=== PATIENT | female | born 1945 | race Caucasian/White ===

== ENCOUNTER 2024-02-02 11:50 | Inpatient (IN) | payer OTHER, MEDICAID ==
[~2024-02-02] VITALS: Ht 154.9 cm; Wt 78.0 kg
[2024-02-02] MEDS: SODIUM CHLORIDE 0.9% 1,000 ML IV ONE ×4 (12:05→16:46)
--- NOTE | 2024-02-02 12:07 | ED.PDOC ---
History of Present Illness HPI Comments 78 y.o female on ASA, presents to the ED via EMS for an evaluation of flu like symptoms. EMS reports patient had a syncopal episode yesterday, per patient's daughter on scene, she heard a loud noise in bathroom and found her on the floor unconscious. Patient is unable to recall syncopal episode, she states going to the restroom yesterday and became dizzy suddenly. Patient is a poor historian. EMS notes that for the past couple of days, patient c/o of nausea, vomiting, diarrhea. On scene, patient had a blood pressure of 62/35, was given 500mL bolus. Upon ED arrival, pressure is still reading low at 63/39. Patient complains of a generalized headache and left arm pain s/p fall. No chest pain, SOB, fever, or chills reported. Later we learned from the family at bedside that the patient has been having diarrhea and nausea and weakness for the last three days. She has been acting very anxious in the last two days. Patient was sitting on the toilet when she passed out. Patient denies allergies Vital Signs BP: 79/40 HR: 107 Temp: 98.9F SPO2: 94 L RR: 19 Past medical history: On ASA, thyroid disease, hyperlipidemia, DM, arthritis Past surgical history: Denies HPI: Poor Historian. Past Medcial History: Past Surgical History: REVIEW OF SYSTEMS: CONSTITUTIONAL: Denies acute: fever, diaphoresis, chills, HEAD: Denies acute: photophobia Eyes: Denies acute: Double vision, vision loss, eye pain, eye discharge. EARS: Denies acute: tinnitus, hearing loss, ear discharge, ear pain, THROAT: Denies acute: sore throat, swelling, difficulty swallowing , pain with swallowing, change in voice. NECK: Denies acute: neck swelling, stiff neck. HEART: Denies acute : chest pain, palpitations, LUNGS: Denies acute: SOB, wheezing, cough, hemoptysis ABDOMEN: Denies acute: abdominal pain, diarrhea, melena , hematemesis, hematochezia SKIN: Denies acute: rash, redness, lesions, itchiness. EXTREMITIES: Denies acute: calf pain, numbness, tingling, weakness, denies pain in extremity. Denies acute: Low back pain. Neuro: Denies acute: focal neurological deficit, motor or sensory focal neurological deficit, tremors, seizure like activity, confusion, dizziness, change in mental status, loss of bowel or bladder function, cauda equina like symptoms. : Denies acute: dysuria, hematuria, flank pain, increase in urinary frequency. PSYCH: Denies acute: hallucination, suicidal ideation, homicidal ideation. FEMALE: Denies acute: abnormal vaginal bleeding, foul odor, unusual discharge. PHYSICAL EXAM: General: no acute distress, awake and alert. Head: normocephalic, atraumatic. Neck: supple, trachea is midline, no swelling. Throat: Normal phonation. Eyes:, no erythema, no purulent discharge, no proptosis, no icterus. Heart: regular rate, regular rhythm, no significant murmur appreciated. Lungs: no apparent respiratory distress, Able to speak in full sentences. No wheezing, no rhonchi, no crackles. No stridors Clear to auscultation bilaterally. Abdomen: non tender to palpation, non distended, soft, no guarding, no rebound, + bowel sounds. Neuro: Awake, Alert, oriented to name, self, situation, follows commands GCS=15. Speech is normal. Skin: no petechia, no purpura, no cyanosis, non-pale, not jaundice. Lower extremities: --no - Pitting edema no deformity, no focal swelling, no calf TTP. Makes eye contact. moves all four extremities. Face: no apparent facial droop. Stroke: finger to nose cerebellar testing is intact. No pronator drift. Symmetrical sports official muscle strength b/l PERRLA, EOM-I CN 2-12 are grossly intact, No nystagmus. No nuchal rigidity, Kernig's sign, Brudzinski's sign, no meningeal signs. Chief Complaint: Low Blood Pressure Time Seen by MD: 11:51 Reviewed Notes: Nurses Notes, Allergies Allergies: Coded Allergies: Penicillins (Verified Allergy, Unknown, 02/02/24) Information Source: Patient, Emergency Med Personnel Mode of Arrival: EMS Past Medical History PAST MEDICAL HISTORY: Arthritis, DM, High Lipids, Thyroid COMMUNICATIONS BILLING ANALYST History: No Pertinent COMMUNICATIONS BILLING ANALYST History Family History Family History: Reviewed,noncontributory to illness Social History Smoker: Non-Smoker Alcohol: Denies ETOH Use Drugs: Denies Drug Use Lives In: Home Was a procedure done? Was a procedure done?: No Differential Dx Considerations may include: Includes but not limited to thyroid disease, encephalopathy, electrolyte abnormality, sepsis, infection, intracranial pathology, drug adverse effects, arrhythmia, kidney insufficiency, ACS, CVA, malignancy, anemia X-Ray, Labs, Meds, VS Vital Signs Date Time Temp Pulse Resp B/P (MAP) Pulse Ox O2 Delivery O2 Flow Rate FiO2 02/02/24 18:59 126/63 02/02/24 18:30 99 19 104/45 (64) 92 02/02/24 17:15 99.1 98 29 95/45 (62) 96 99.1 02/02/24 17:00 100/46 02/02/24 16:05 102 27 98/40 (59) 94 02/02/24 16:00 106 02/02/24 14:15 102 18 93/54 (67) 96 02/02/24 13:54 100 24 83/44 (57) 96 02/02/24 12:50 100 20 98 Nasal Cannula* 2 28 02/02/24 12:50 97.7 100 20 85/37 (53) 98 97.7 02/02/24 12:39 101 20 75/36 (49) 92 02/02/24 12:12 100 02/02/24 12:07 98.9 107 19 79/40 (53) 94 98.9 02/02/24 11:52 98.9 103 26 62/35 (44) 94 Lab Test 02/02/24 16:20 02/02/24 16:00 02/02/24 14:06 02/02/24 13:38 Range/Units Lactic Acid Level 2.2 *H 3.4 *H 0.4-2.0 mmol/L Troponin I High Sensitivity 39 *H 43 *H </=34 ng/L Urine Color Yellow Yellow Urine Clarity Turbid H Clear Urine pH 5.5 5.0-9.0 Urine Specific [place] 1.013 1.001-1.035 Urine Protein 1+ H Negative Urine Ketones Negative Negative Urine Blood 2+ H Negative /uL Urine Nitrite Negative Negative Urine Bilirubin Negative Negative Urine Urobilinogen Normal Negative mg/dL Urine Leukocyte Esterase 1+ Negative /uL Urine RBC 2 0 - 4 /hpf Urine WBC 24 0 - 5 /hpf Urine Squamous Epithelial Cells Few <5 /hpf Urine Amorphous Crystals Few None Seen /hpf Urine Bacteria Many H None Seen /hpf Urine Glucose Normal Normal mg/dL White Blood Count 13.4 H 4.4-10.8 10^3/uL Red Blood Count 3.49 L 4.0-5.20 10^6/uL Hemoglobin 10.8 L 12.2-16.2 g/dL Hematocrit 32.6 L 36.0-46.0 % Mean Corpuscular Volume 93.6 80.0-100.0 fL Mean Corpuscular Hemoglobin 30.9 28.0-32.0 pg Mean Corpuscular Hemoglobin Concent 33.0 32.0-36.0 g/dL Red Cell Distribution Width 17.6 H 11.8-14.3 % Platelet Count 113 L 140-450 10^3/uL Mean Platelet Volume 7.5 6.9-10.8 fL Neutrophils (%) (Auto) 37.0-80.0 % Lymphocytes (%) (Auto) 10.0-50.0 % Monocytes (%) (Auto) 0.0-12.0 % Basophils (%) (Auto) 0.0-2.0 % Neutrophils # (Auto) 1.6-8.6 10 ^3/uL Lymphocytes # (Auto) 0.4-5.4 10 ^3/uL Monocytes # (Auto) 0-1.3 10 ^3/uL Differential Total Cells Counted 100.0 100 Neutrophils % (Manual) 56 37.0-80.0 Band Neutrophils % (Manual) 24 Lymphocytes % (Manual) 10 10.0-50.0 Monocytes % (Manual) 10 0-12 Eosinophils % (Manual) 0 0-7 Basophils % (Manual) 0 0.0-2.0 Metamyelocytes % (manual) 0 Myelocytes % (Manual) 0 Promyelocytes % (Manual) 0 Blast Cells % (Manual) 0 Reactive Lymphocytes 0 Platelet Estimate Decreased B-Type Natriuretic Peptide 1080.30 0-100 pg/mL Test 02/02/24 13:13 Range/Units Prothrombin Time 14.5 H 9.3-11.8 sec Prothrombin Time INR 1.40 H 0.9-1.15 Activated Partial Thromboplast Time 35.6 H 24.5-34.5 SEC Sodium Level 135 L 136-145 mmol/L Potassium Level 5.3 H 3.5-5.1 mmol/L Chloride Level 104 98-107 mmol/L Carbon Dioxide Level 21 20-31 mmol/L Anion Gap 10 5-15 Blood Urea Nitrogen 45 H 9-23 mg/dL Creatinine 3.94 H 0.550-1.02 mg/dL Glomerular Filtration Rate Calc 11 >90 mL/min BUN/Creatinine Ratio 11.4 10.0-20.0 Serum Glucose 126 H 74-106 mg/dL Calcium Level 8.4 L 8.7-10.4 mg/dL Magnesium Level 1.5 L 1.6-2.6 mg/dL Total Bilirubin 1.0 0.2-1.0 mg/dL Aspartate Amino Transferase (AST) 59 H 13-40 U/L Alanine Aminotransferase (ALT) 51 H 7-40 U/L Alkaline Phosphatase 68 46-116 U/L Troponin I High Sensitivity 49 *H </=34 ng/L Total Protein 5.6 L 5.7-8.2 g/dL Albumin 3.1 L 3.2-4.8 g/dL Current Medications Medications (Trade) Dose Ordered Sig/Ariella Route Start Time Stop Time Status Last Admin Sodium Chloride 1,000 ml @ 1,000 mls/hr Q1H ONCE IV 02/02/24 12:00 02/02/24 12:59 DC 02/02/24 12:05 Sodium Chloride 1,000 ml @ 1,000 mls/hr Q1H ONCE IV 02/02/24 13:30 02/02/24 14:29 DC 02/02/24 13:30 Sodium Chloride 1,000 ml @ 1,000 mls/hr Q1H ONCE IV 02/02/24 14:30 02/02/24 15:29 DC 02/02/24 14:30 Magnesium Sulfate/ Dextrose 100 ml @ 100 mls/hr ONCE ONCE IV 02/02/24 14:30 02/02/24 15:29 DC 02/02/24 15:09 Ceftriaxone Sodium 50 ml @ 100 mls/hr ONCE ONCE IV 02/02/24 15:45 02/02/24 16:14 DC 02/02/24 16:46 Sodium Chloride 1,000 ml @ 1,000 mls/hr Q1H ONCE IV 02/02/24 16:00 02/02/24 16:59 DC 02/02/24 16:46 Furosemide (Lasix Injection) 40 mg ONCE ONCE IV 02/02/24 17:00 02/02/24 17:01 DC 02/02/24 17:00 Fentanyl Citrate 50 mcg ONCE ONCE IV 02/02/24 19:00 02/02/24 19:01 DC 02/02/24 18:[address] [address] Ph: [phone] DIAGNOSTIC IMAGING Diagnostic Imaging Report : [id number] Signed PATIENT: CAITLYN RICHARDSON ACCT: [id number] UNIT: [id number] : 1945 LOC: ER ROOM / BED: / AGE / SEX: 78 / F ADM STATUS: REG ER SERVICE [id number] ORDERING PHYSICIAN: AUDREY MENDEZ DO PROCEDURE(s): CTCAP - CHST AB PEL WO CON-NO IV/ORAL REASON: S/P FALL N/V ORDER NUMBER(s): [id number], ACCESSION NUMBER(s): [id number] CT CHEST, ABDOMEN AND PELVIS WITHOUT CONTRAST CLINICAL HISTORY: S/P FALL N/V TECHNIQUE: Multiple contiguous axial images of the chest, abdomen and pelvis without intravenous contrast. The images were reformatted degenerate coronal and sagittal reconstructions. All CT scans at this medical facility are performed using dose modulation techniques as appropriate to a performed exam including the following:Automated exposure control was utilized; adjustment of the MA and/or KV according to patient size; and use of iterative reconstruction technique. Radiation Dose Information: CT Dose: CTDI volume is 20.31 mGy. Dose-length product is 1252.21 mGy*cm FINDINGS: Evaluation of the chest, abdomen and pelvis is limited without intravenous contrast. The lungs are clear without evidence of consolidation. There is no pleural effusion or pneumothorax. There is no suspicious appearing pulmonary nodule or mass. There is no evidence of a mediastinal mass or lymphadenopathy. There is no hilar or axillary lymphadenopathy. The heart size within normal limits. There is no pericardial effusion. There is moderate right renal hydronephrosis. There is dilatation of the proximal right ureter. The distal right ureter does not appear dilated. There is no evidence of an obstructing ureteral calculus. There is no evidence of a renal calculus. There is no left renal calculus or hydronephrosis. There is no left ureteral calculus or hydroureter. There are renal cysts, largest in the right midpole measuring 2.1 cm. The gallbladder is not adequately seen in is probably surgically absent. The liver, pancreas, adrenal glands, and spleen appear within normal limits. There is no gross evidence of abdominal lymphadenopathy. There is no free fluid or free air. The small and large bowel loops demonstrate normal caliber. There are multiple diverticula in the sigmoid colon without evidence of acute diverticulitis. The abdominal aorta and IVC appear within normal limits. The bladder appears unremarkable. Uterus appears within normal limits.. There is no evidence of a pelvic mass or lymphadenopathy. There is no free fluid collection. There is a fat containing umbilical hernia. There is no acute osseous abnormality. There are multilevel spondylotic changes in the thoracolumbar spine. IMPRESSION: 1. There is moderate right renal hydronephrosis. There is dilatation of the proximal right ureter. The distal right ureter does not appear dilated. There is no evidence of an obstructing ureteral calculus. Ureteral stricture is not excluded. Further evaluation with CT urogram is recommended. 2. Sigmoid diverticulosis. 3. There is no acute intrathoracic abnormality. HS:Y ATED BY: JOSE DE JESUS KIRBY MD DICTATED DATE/TIME: 02/02/241428 SIGNED BY: JOSE DE JESUS KIRBY MD SIGNED DATE/TIME: 02/02/241428 CC: [place] [id number] Ph: [phone] DIAGNOSTIC IMAGING Diagnostic Imaging Report : [id number] Signed PATIENT: CAITLYN RICHARDSON ACCT: [id number] UNIT: [id number] : 1945 LOC: ER ROOM / BED: / AGE / SEX: 78 / F ADM STATUS: REG ER SERVICE 1159 ORDERING PHYSICIAN: AUDREY MENDEZ DO PROCEDURE(s): HWOCT - HEAD WITHOUT CONTRAST REASON: Weakness, syncope, hypotension ORDER NUMBER(s): [id number], ACCESSION NUMBER(s): [id number] EXAM: CT HEAD WITHOUT CONTRAST INDICATION: Weakness, syncope, hypotension TECHNIQUE: CT of the head without intravenous contrast. Coronal and sagittal reformatted images are submitted. Radiation Dose : 1. Head: CT Dose: CTDI volume is 58.89 mGy. Dose-length product is 1042.67 mGy*cm The dose indicators for CT are the volume Computed Tomography (CT) Dose Index (CTDIvol) and the Dose Length Product (DLP), and are measured in units of mGy and mGy-cm, respectively. These indicators are not patient dose, but values generated from the CT scanner acquisition factors. The report includes radiation exposure data for exposures received during this examination. All CT scans at this medical facility are performed using dose modulation techniques as appropriate to a performed exam including the following: Automated exposure control was utilized; adjustment of the MA and/or KV according to patient size; and use of iterative reconstruction technique. COMPARISON: None FINDINGS: There is no evidence of acute intracranial hemorrhage, extra-axial collection, mass effect, midline shift, herniation or hydrocephalus. The ventricles, sulci and cisterns are age appropriate. The whiting-white differentiation is intact. The visualized paranasal sinuses and mastoid air cells are clear. No depressed calvarial fracture. Right parietal scalp contusion noted. IMPRESSION: 1. No evidence of acute intracranial abnormality. 2. Right parietal scalp contusion. ATED BY: DARIO CONTE MD DICTATED DATE/TIME: 02/02/241245 SIGNED BY: DARIO CONTE MD SIGNED DATE/TIME: 02/02/241245 CC: [place] [id number] Ph: [phone] DIAGNOSTIC IMAGING Diagnostic Imaging Report : [id number] Signed PATIENT: CAITLYN RICHARDSON ACCT: [id number] UNIT: [id number] : 1945 LOC: ER ROOM / BED: / AGE / SEX: 78 / F ADM STATUS: REG ER SERVICE 1159 ORDERING PHYSICIAN: AUDREY MENDEZ DO PROCEDURE(s): CXRP - CHEST PORTABLE REASON: Weakness, syncope, hypotension ORDER NUMBER(s): [id number], ACCESSION NUMBER(s): [id number] CHEST RADIOGRAPH Indication: Weakness, syncope, hypotension Technique: Single frontal view of the chest was obtained COMPARISON: None FINDINGS: Lines and Tubes: None Lungs: Clear Pleura: No effusion. No pneumothorax. Cardiomediastinal contours: Unremarkable Bones: Unremarkable IMPRESSION: No acute disease. ATED BY: SAM CHAPA MD DICTATED DATE/TIME: 02/02/24 124 SIGNED BY: SAM CHAPA MD SIGNED DATE/TIME: 02/02/241245 CC: [place] [id number] Ph: [phone] DIAGNOSTIC IMAGING Diagnostic Imaging Report : [id number] Signed PATIENT: CAITLYN RICHARDSON ACCT: [id number] UNIT: [id number] : 1945 LOC: ER ROOM / BED: / AGE / SEX: 78 / F ADM STATUS: REG ER SERVICE 1159 ORDERING PHYSICIAN: AUDREY MENDEZ DO PROCEDURE(s): CS2 - CERVICAL WITHOUT CONTRAST REASON: Weakness, syncope, hypotension ORDER NUMBER(s): [id number], ACCESSION NUMBER(s): [id number] EXAM: CT CERVICAL WITHOUT CONTRAST INDICATION: Weakness, syncope, hypotension EXAM DATE: 02/02/2024 12:20 PM COMPARISON: None TECHNIQUE: Multiple axial CT images of the cervical spine were obtained using bone algorithm. Sagittal and coronal reformatting was done. Bone and soft tissue windows were reviewed. Radiation Dose Information: CT Dose: CTDI volume is 22.8 mGy. Dose-length product is 551.44 mGy*cm FINDINGS: The cervical alignment is intact. No acute cervical spine fracture is identified. The vertebral body heights are intact. No suspicious osseous lesions are identified. Multilevel ventral osteophytes. No significant canal stenosis. The neural foramina are patent. Multilevel facet hypertrophy. There is no prevertebral soft tissue swelling. The lung apices are clear. IMPRESSION: 1. No evidence of acute cervical spine fracture or traumatic malalignment. All CT scans at this medical facility are performed using dose modulation techniques as appropriate to a performed exam including the following: Automated exposure control was utilized; adjustment of the MA and/or KV according to patient size; and use of iterative reconstruction technique. ATED BY: DARIO CONTE MD DICTATED DATE/TIME: 02/02/24 1250 SIGNED BY: DARIO CONTE MD SIGNED DATE/TIME: 02/02/24 1250 CC: Time of 1ST Reevaluation: 12:00 Reevaluation 1ST: Unchanged Time of 2ND Reevaluation: 19:21 (Talked to daughter Shakira over the phone. Per daughter, pt has an advance directive, that is submitted with her doctor, but daughter could not find it at home. As per daughter, pt did not want to be resuscitated. Daughter said she will be coming at bedside. As per talk with the daughter over the phone , she recently stopped taking eliquis as advised by her doctor, which she was taking for the blood clot in the legs. Other meds : Lipitor, vitamin B3, vitamin B12, lisinopril, Synthroid, nitroglycerin, Ozempic) Reevaluation 2ND: Unchanged Time of 3RD Reevaluation: 19:58 (Family at bedside. Discussed with patient, family and RN plan of care. Patient reports she does not want to be intubated and no resuscitation. Family understands and will follow patient's wishes. RN at bedside noted ) Reevaluation 3RD: Unchanged Patient Education/Counseling: Diagnosis, Treatment Family Education/Counseling: Diagnosis, Treatment Comments Patient presented with the above HPI.---syncope---workup was initiated. patient was found with the above mentioned diagnosis. Patient was given: [place] CT scans were obtained since the patient was very poor historian. Patient was placed in a C-collar immediately. Later after imaging studies patient was re-evaluated. Patient has history of chronic neck pain. Cervical spine: Palpation of the posterior midline of the cervical spine reveals no focal swelling, erythema, focal tenderness to palpation. Patient has normal range of motion. C-spine was cleared in C-collar was removed. Patient ED course and VS have been stabilized. Patient has been reassessed in the ED and remained in a stable condition. Pertinent incidental findings were discussed with the patient and/or family. Patient/family voices understanding and is agreeable with plan. Patient has been observed in the ED adequate length of time to insure improvement/stability. patient was admitted to the medicine team for further evaluation and treatment of their presentation. All the reports of any imaging studies that were ordered by myself were reviewed by myself. Pain she started becoming anxious and started complaining of right low back pain from the fall. Patient was given pain medications and placed on a BiPAP because she was tachypneic. Patient was slightly tachycardic. Accu-Cheks were stable. Given her tachycardia, Repeat magnesium rider was given. Later in the course at museum archivist patient developed a fever of 101 point seven. Tylenol was given. Patient received 4 L of normal saline bolus earlier. P atient's BNP was greater than 1000. No documented history of CHF per patient and family. Patient is no longer on Eliquis. Patient meets sepsis criteria. Rocephin has already been started earlier. Flagyl was added given the recent history of diarrhea. Sepsis protocol was initiated. Later patient was weaned off of the BiPAP and remains in stable condition. Patient was slightly hypotensive. The medicine team was notified. Please see their interventions or medications ordered. Patient and family stated that they are wishes is DNR DNI Departure 1 Departure Time of Disposition: 12:39 Impression: Primary Impression: Syncope and collapse Additional Impressions: Closed head injury Hypotension Elevated troponin Hypomagnesemia Acute renal failure Sepsis Fever Disposition: ADMITTED INPATIENT Admit to: ICU Condition: Critical Discharged With: Self Critical Care Note Critical Care Time?: Yes (1 hr-critical care time only) I personally scribed for AUDREY MENDEZ DO ([email or web address]) on 02/02/24 at 12:07. Electronically submitted by Dania Rosario ([facility]). I personally scribed for AUDREY MENDEZ DO ([email or web address]) on 02/02/24 at 16:16. Electronically submitted by Dania Rosario ([facility]). I personally scribed for AUDREY MENDEZ DO ([email or web address]) on 02/02/24 at 20:01. Electronically submitted by Dania Rosario ([facility]). AUDREY MENDEZ DO Feb 02, 2024 12:07 DAVIAN MELENDEZ RESIDENT Feb 02, 2024 19:26
--- NOTE | 2024-02-02 12:48 | DVH ---
CHEST RADIOGRAPH Indication: Weakness, syncope, hypotension Technique: Single frontal view of the chest was obtained COMPARISON: None FINDINGS: Lines and Tubes: None Lungs: Clear Pleura: No effusion. No pneumothorax. Cardiomediastinal contours: Unremarkable Bones: Unremarkable IMPRESSION: No acute disease.
--- NOTE | 2024-02-02 12:49 | DVH ---
EXAM: CT HEAD WITHOUT CONTRAST INDICATION: Weakness, syncope, hypotension TECHNIQUE: CT of the head without intravenous contrast. Coronal and sagittal reformatted images are submitted. Radiation Dose : 1. Head: CT Dose: CTDI volume is 58.89 mGy. Dose-length product is 1042.67 mGy*cm The dose indicators for CT are the volume Computed Tomography (CT) Dose Index (CTDIvol) and the Dose Length Product (DLP), and are measured in units of mGy and mGy-cm, respectively. These indicators are not patient dose, but values generated from the CT scanner acquisition factors. The report includes radiation exposure data for exposures received during this examination. All CT scans at this medical facility are performed using dose modulation techniques as appropriate to a performed exam including the following: Automated exposure control was utilized; adjustment of the MA and/or KV according to patient size; and use of iterative reconstruction technique. COMPARISON: None FINDINGS: There is no evidence of acute intracranial hemorrhage, extra-axial collection, mass effect, midline s hift, herniation or hydrocephalus. The ventricles, sulci and cisterns are age appropriate. The whiting-white differentiation is intact. The visualized paranasal sinuses and mastoid air cells are clear. No depressed calvarial fracture. Right parietal scalp contusion noted. IMPRESSION: 1. No evidence of acute intracranial abnormality. 2. Right parietal scalp contusion.
[2024-02-02 12:50] VITALS: PULSE 100; RESP 20; O2SAT 98
--- NOTE | 2024-02-02 12:53 | DVH ---
EXAM: CT CERVICAL WITHOUT CONTRAST INDICATION: Weakness, syncope, hypotension EXAM DATE: 02/02/2024 12:20 PM COMPARISON: None TECHNIQUE: Multiple axial CT images of the cervical spine were obtained using bone algorithm. Sagitta l and coronal reformatting was done. Bone and soft tissue windows were reviewed. Radiation Dose Information: CT Dose: CTDI volume is 22.8 mGy. Dose-length product is 551.44 mGy*cm FINDINGS: The cervical alignment is intact. No acute cervical spine fracture is identified. The vertebral body heights are intact. No suspicious osseous lesions are identified. Multilevel ventral osteophytes. No significant canal stenosis. The neural foramina are patent. Multi level facet hypertrophy. There is no prevertebral soft tissue swelling. The lung apices are clear. IMPRESSION: 1. No evidence of acute cervical spine fracture or traumatic malalignment. All CT scans at this medical facility are performed using dose modulation techniques as appropriate t o a performed exam including the following: Automated exposure control was utilized; adjustment of th e MA and/or KV according to patient size; and use of iterative reconstruction technique.
[2024-02-02 13:52] LABS: INR 1.4 (0.9-1.15); Partial Thromboplastin Time 35.6 SEC (24.5-34.5); Prothrombin Time 14.5 sec (9.3-11.8)
[2024-02-02 14:06] LABS: Alanine Aminotransferase 51 U/L (7-40); Albumin 3.1 g/dL (3.2-4.8); Alkaline Phosphatase 68 U/L (46-116); Anion Gap 10 (5-15); Aspartate Aminotransferase 59 U/L (13-40); BUN/Creatinine Ratio 11.4 (10.0-20.0); Blood Urea Nitrogen 45 mg/dL (9-23); Calcium 8.4 mg/dL (8.7-10.4); Carbon Dioxide 21 mmol/L (20-31); Chloride 104 mmol/L (98-107); Glucose 126 mg/dL (74-106); Magnesium 1.5 mg/dL (1.6-2.6); Potassium 5.3 mmol/L (3.5-5.1); Sodium 135 mmol/L (136-145)
[2024-02-02 14:07] LABS: Total Protein 5.6 g/dL (5.7-8.2)
[2024-02-02 14:25] LABS: Lactic Acid w/Reflex 3.4 mmol/L (0.4-2.0)
[2024-02-02 14:26] LABS: Hematocrit 32.6 % (36.0-46.0); Hemoglobin 10.8 g/dL (12.2-16.2); Mean Corpuscular Hemoglobin 30.9 pg (28.0-32.0); Mean Corpuscular Volume 93.6 fL (80.0-100.0); Platelet Count (auto) 113 10^3/uL (140-450); Red Blood Cells 3.49 10^6/uL (4.0-5.20); Red Cell Distribution Width 17.6 % (11.8-14.3); White Blood Cell 13.4 10^3/uL (4.4-10.8)
--- NOTE | 2024-02-02 14:30 | DVH ---
CT CHEST, ABDOMEN AND PELVIS WITHOUT CONTRAST CLINICAL HISTORY: S/P FALL N/V TECHNIQUE: Multiple contiguous axial images of the chest, abdomen and pelvis without intravenous cont rast. The images were reformatted degenerate coronal and sagittal reconstructions. All CT scans at this medical facility are performed using dose modulation techniques as appropriate t o a performed exam including the following:Automated exposure control was utilized; adjustment of the MA and/or KV according to patient size; and use of iterative reconstruction technique. Radiation Dose Information: CT Dose: CTDI volume is 20.31 mGy. Dose-length product is 1252.21 mGy*cm FINDINGS: Evaluation of the chest, abdomen and pelvis is limited without intravenous contrast. The lungs are clear without evidence of consolidation. There is no pleural effusion or pneumothorax. There is no suspicious appearing pulmonary nodule or mass. There is no evidence of a mediastinal mass or lymphadenopathy. There is no hilar or axillary lymphad enopathy. The heart size within normal limits. There is no pericardial effusion. There is moderate right renal hydronephrosis. There is dilatation of the proximal right ureter. The d istal right ureter does not appear dilated. There is no evidence of an obstructing ureteral calculus. There is no evidence of a renal calculus. There is no left renal calculus or hydronephrosis. There is no left ureteral calculus or hydroureter. There are renal cysts, largest in the right midpole tammy uring 2.1 cm. The gallbladder is not adequately seen in is probably surgically absent. The liver, pancreas, adr enal glands, and spleen appear within normal limits. There is no gross evidence of abdominal lymphadenopathy. There is no free fluid or free air. The small and large bowel loops demonstrate normal caliber. There are multiple diverticula in the si gmoid colon without evidence of acute diverticulitis. The abdominal aorta and IVC appear within normal limits. The bladder appears unremarkable. Uterus appears within normal limits.. There is no evidence of a p elvic mass or lymphadenopathy. There is no free fluid collection. There is a fat containing umbilical hernia. There is no acute osseous abnormality. There are multilevel spondylotic changes in the thoracolumbar spine. IMPRESSION: 1. There is moderate right renal hydronephrosis. There is dilatation of the proximal right ureter. T he distal right ureter does not appear dilated. There is no evidence of an obstructing ureteral calcu khloe. Ureteral stricture is not excluded. Further evaluation with CT urogram is recommended. 2. Sigmoid diverticulosis. 3. There is no acute intrathoracic abnormality. HS:Y
[2024-02-02 14:43] LABS: Basophils % (manual) 0 (0.0-2.0); Blast Cells 0; Eosinophils % (manual) 0 (0-7); Metamyelocytes % 0; Myelocytes % 0; Promyelocytes % 0; Reactive Lymphocytes 0
[2024-02-02] MEDS: MAGNESIUM SULFATE 1GM/100ML 100 ML IV ONE ×2 (15:09→22:25)
[2024-02-02] MEDS ORDERED: FUROSEMIDE 100 MG/10ML VIAL IV ONE (15:45)
[2024-02-02] MEDS: cefTRIAXone 1GM/50ML D5W 50 ML IV ONE (16:46)
[2024-02-02] MEDS: FUROSEMIDE 40 MG/4 ML VIAL IV ONE (17:00)
[2024-02-02 17:29] LABS: Band Neutrophils % (manual) 24; Lymphocytes % (manual) 10 (10.0-50.0); Monocytes % (manual) 10 (0-12); Platelet Estimate Decreased
[2024-02-02 17:31] LABS: Urine Amorphous Crystal FEW /hpf (None Seen); Urine Bacteria MANY /hpf (None Seen); Urine Blood 2+ /uL (Negative); Urine Clarity Turbid (Clear); Urine Color Yellow (Yellow); Urine Protein, UAD 1+ (Negative); Urine Specific Gravity 1.013 (1.001-1.035); Urine Urobilinogen Normal (Negative); Urine WBC 24 /hpf (0 - 5); Urine pH 5.5 (5.0-9.0)
[2024-02-02] MEDS: ACETAMINOPHEN 325 MG TAB PO ONE (18:56)
[2024-02-02] MEDS: fentaNYL CITRATE 100 MCG/2 ML VL IV ONE (18:59)
--- NOTE | 2024-02-02 19:08 | DVH ---
EXAM: XY CHEST XRAY 1 VIEW CLINICAL HISTORY: SHORT OF BREATH TECHNIQUE: Single AP view of the chest WID: COMPARISON: XY CHEST PORTABLE on DOS: 02/02/24 FINDINGS: Lines and tubes: None Chest: The heart size and pulmonary vasculature is within normal limits. No pleural effusion, pneumothorax, or consolidation. The osseous structures are grossly intact. Multilevel thoracic spondylosis. Degenerative changes of t he bilateral acromioclavicular joints IMPRESSION: No acute cardiopulmonary abnormality.
[2024-02-02] MEDS ORDERED: DEXTROSE (50%) 50ML SYRG IV PRN (19:15)
[2024-02-02] MEDS ORDERED: DOCUSATE SOD 100 MG CAP PO PRN (19:15)
[2024-02-02] MEDS: SODIUM CHLORIDE 0.9% 1,000 ML IV SCH (19:15)
[2024-02-02] MEDS ORDERED: LORazepam 0.5 MG TAB PO PRN (19:15)
[2024-02-02] MEDS: InsuLIN REG 1unit/0.01ml Soln (100units/ml) SC SCH (20:00)
[2024-02-02] MEDS: ACCU-CHEK COMFORT CURVE STRIP VI SCH (20:00)
[2024-02-02] MEDS: LORazepam 2MG/ML-1ML VIAL IV ONE (20:04)
--- NOTE | 2024-02-02 20:10 | DVHHP2 ---
History of Present Illness Reason for Visit: shortness of breath History of Present Illness 78 yo obese patient with acute respiratory failure with a history of thyroid disease HLD and DM patient was evaluated for admission for the admission of shortness of breath patient was placed on bipap with the thought that this was likely secondary to fluid overload patient recommended for continued medical management Cardiovascular: CAD, CHF, syncope, hyperipidemia Endocrine: Diabetes Review of Systems Constitutional: Yes: Weakness; No: Fever, Chills, Sweats, Malaise, Other Eyes: No: Pain, Vision change, Conjunctivae inflammation, Eyelid inflammation, Other, Redness ENT: No: Ear pain, Ear discharge, Nose pain, Nose discharge, Nose congestion, Mouth pain, Mouth swelling, Throat pain, Throat swelling, Other Respiratory: Cough, Shortness of breath; No: Dry, SOB with excertion, Wheezing, Hemoptysis, Pleuritic Pain, Sputum, Wheezing, Other Cardiovascular: Chest Pain, Palpitations; No: Orthopnea, Paroxysmal Noc. Dyspnea, Edema, Lt Headedness, Other Gastrointestinal: No: Nausea, Vomiting, Abdominal Pain, Diarrhea, Constipation, Melena, Hematochezia, Other Genitourinary: No Dysuria, No Frequency, No Incontinence, No Hematuria, No Retention, No Other Musculoskeletal: No: other, neck pain, shoulder pain, arm pain, back pain, hand pain, leg pain, foot pain Skin: No: Rash, Lesions, Jaundice, Bruising, Other Neurological: No: Weakness, Numbness, Incoordination, Change in speech, Confusion, Seizures, Other Allergies: Coded Allergies: NO KNOWN ALLERGIES (Unverified , 02/02/24) Medications Current Medications Medications Dose Ordered Sig/Ariella Route Start Time Stop Time Status Last Admin Dose Admin Ceftriaxone Sodium 50 ml @ 100 mls/hr DAILY IV 02/03/24 10:00 UNV Furosemide 40 mg BID IV 02/02/24 22:00 UNV Sodium Chloride 1,000 ml @ 75 mls/hr [id number] IV 02/02/24 19:15 UNV Diagnostic Test (Pha) 1 strip IQ4HR 02/02/24 20:00 UNV Insulin Human Regular IQ4HR SC 02/02/24 20:00 UNV Dextrose 50 ml UD PRN IV 02/02/24 19:15 UNV Lorazepam 0.5 mg Q6HP PRN PO 02/02/24 19:15 UNV Al Hydrox/Mg Hydrox/Simethicone 30 ml Q6HP PRN PO 02/02/24 19:15 UNV Docusate Sodium 100 mg BIDPRN PRN PO 02/02/24 19:15 UNV Acetaminophen 650 mg Q6HP PRN PO 02/02/24 19:15 UNV Acetaminophen/ Hydrocodone Bitart 1 tab Q4HP PRN PO 02/02/24 19:15 UNV Ondansetron HCl 4 mg Q4HP PRN IV 02/02/24 19:15 UNV Morphine Sulfate 2 mg Q4HPRN PRN IV 02/02/24 19:15 UNV Albuterol 2.5 mg Q4HWA PRN NEB 02/02/24 19:30 UNV Ipratropium [place] 0.5 mg Q4HWA PRN NEB 02/02/24 19:30 UNV Exam Vital Signs Vital Signs Date Time Temp Pulse Resp B/P (MAP) Pulse Ox O2 Delivery O2 Flow Rate FiO2 02/02/24 19:15 130 126/68 Facial BiPAP Mask 50 02/02/24 18:30 19 92 02/02/24 17:15 99.1 99.1 02/02/24 12:50 2 General Appearance: Alert, Oriented X3, severe distress HEENT: Atraumatic, PERRLA Respiratory: Clear to auscultation, Normal air movement Cardiovascular: Regular rate, Normal S1, Normal S2 Abdominal: Normal bowel sounds, Soft, No tenderness Extremities: No clubbing, No cyanosis Skin: No rashes, No breakdown Neuro: Normal speech Psych/Mental Status: Mood NL Labs/Xrays Labs Test 02/02/24 19:07 02/02/24 16:20 02/02/24 16:00 02/02/24 13:38 Range/Units POC Glucose 114 H 70-106 mg/dl Lactic Acid Level 2.2 *H 0.4-2.0 mmol/L Troponin I High Sensitivity 39 *H </=34 ng/L Urine Color Yellow Yellow Urine Clarity Turbid H Clear Urine pH 5.5 5.0-9.0 Urine Specific [place] 1.013 1.001-1.035 Urine Protein 1+ H Negative Urine Ketones Negative Negative Urine Blood 2+ H Negative /uL Urine Nitrite Negative Negative Urine Bilirubin Negative Negative Urine Urobilinogen Normal Negative mg/dL Urine Leukocyte Esterase 1+ Negative /uL Urine RBC 2 0 - 4 /hpf Urine WBC 24 0 - 5 /hpf Urine Squamous Epithelial Cells Few <5 /hpf Urine Amorphous Crystals Few None Seen /hpf Urine Bacteria Many H None Seen /hpf Urine Glucose Normal Normal mg/dL White Blood Count 13.4 H 4.4-10.8 10^3/uL Red Blood Count 3.49 L 4.0-5.20 10^6/uL Hemoglobin 10.8 L 12.2-16.2 g/dL Hematocrit 32.6 L 36.0-46.0 % Mean Corpuscular Volume 93.6 80.0-100.0 fL Mean Corpuscular Hemoglobin 30.9 28.0-32.0 pg Mean Corpuscular Hemoglobin Concent 33.0 32.0-36.0 g/dL Red Cell Distribution Width 17.6 H 11.8-14.3 % Platelet Count 113 L 140-450 10^3/uL Mean Platelet Volume 7.5 6.9-10.8 fL Neutrophils (%) (Auto) 37.0-80.0 % Lymphocytes (%) (Auto) 10.0-50.0 % Monocytes (%) (Auto) 0.0-12.0 % Basophils (%) (Auto) 0.0-2.0 % Neutrophils # (Auto) 1.6-8.6 10 ^3/uL Lymphocytes # (Auto) 0.4-5.4 10 ^3/uL Monocytes # (Auto) 0-1.3 10 ^3/uL Differential Total Cells Counted 100.0 100 Neutrophils % (Manual) 56 37.0-80.0 Band Neutrophils % (Manual) 24 Lymphocytes % (Manual) 10 10.0-50.0 Monocytes % (Manual) 10 0-12 Eosinophils % (Manual) 0 0-7 Basophils % (Manual) 0 0.0-2.0 Metamyelocytes % (manual) 0 Myelocytes % (Manual) 0 Promyelocytes % (Manual) 0 Blast Cells % (Manual) 0 Reactive Lymphocytes 0 Platelet Estimate Decreased B-Type Natriuretic Peptide 1080.30 0-100 pg/mL Test 02/02/24 13:13 Range/Units Prothrombin Time 14.5 H 9.3-11.8 sec Prothrombin Time INR 1.40 H 0.9-1.15 Activated Partial Thromboplast Time 35.6 H 24.5-34.5 SEC Sodium Level 135 L 136-145 mmol/L Potassium Level 5.3 H 3.5-5.1 mmol/L Chloride Level 104 98-107 mmol/L Carbon Dioxide Level 21 20-31 mmol/L Anion Gap 10 5-15 Blood Urea Nitrogen 45 H 9-23 mg/dL Creatinine 3.94 H 0.550-1.02 mg/dL Glomerular Filtration Rate Calc 11 >90 mL/min BUN/Creatinine Ratio 11.4 10.0-20.0 Serum Glucose 126 H 74-106 mg/dL Calcium Level 8.4 L 8.7-10.4 mg/dL Magnesium Level 1.5 L 1.6-2.6 mg/dL Total Bilirubin 1.0 0.2-1.0 mg/dL Aspartate Amino Transferase (AST) 59 H 13-40 U/L Alanine Aminotransferase (ALT) 51 H 7-40 U/L Alkaline Phosphatase 68 46-116 U/L Total Protein 5.6 L 5.7-8.2 g/dL Albumin 3.1 L 3.2-4.8 g/dL Assessment/Plan Assessment/Plan Admit to [facility] Acute Respiratory Failure Due to suspected Acute on Chronic CHF BNP > 1000 Patient with Bipap IV abx PRN breathing treatments Patient family has requested DNR and patient was family requested to have patient be managed Hyperlipidemia/HTN/ DM Insluin Sliding Scale c/w home meds CCT 38 mins Plan discussed with: Patient My Orders Orders - LIANE VALENCIA MD Procedure Category Date Status Time Ceftriaxone 1gm/50ml [facility] 02/03/24 Logged D5w (Rocephin) 10:00 Furosemide Injection [facility] 02/02/24 Logged (Lasix Injection) 22:00 Insert [place]hman Catheter [facility] 02/02/24 In Process 19:05 Sodium Chloride 0.9% [facility] 02/02/24 Logged 19:15 Glucose Blood [facility] 02/02/24 Logged (Accu-Chek Comfort 20:00 Insulin R (Human) [facility] 02/02/24 Logged (Insulin R) 20:00 Dextrose 50% Syringe [facility] 02/02/24 Logged 19:15 Admit ADMIT 02/02/24 Transmitted 19:05 Code Status CODE 02/02/24 Transmitted 19:05 Vital Signs [facility] 02/02/24 In Process 19:05 Review Orders With [facility] 02/02/24 In Process Adm. 19:05 Regular Diet DIET 02/03/24 Transmitted Breakfast Lorazepam Tablet [facility] 02/02/24 Logged (Ativan Tablet) 19:15 Alum & Mag [facility] 02/02/24 Logged Hydrox-Simethicone 19:15 Docusate Sodium [facility] 02/02/24 Logged Capsule (Colace 19:15 Acetaminophen Tablet [facility] 02/02/24 Logged (Tylenol Tablet) 19:15 Notify Md Of Changes [facility] 02/02/24 In Process From Base 19:05 Advance Directive [facility] 02/02/24 In Process 19:05 Basic Metabolic Panel LAB 02/03/24 Verified 04:00 Complete Blood Count LAB 02/03/24 Verified 04:00 Patient Condition ORDERS 02/02/24 Transmitted 19:05 Allergies [facility] 02/02/24 In Process 19:05 Hydrocodone-Acet [facility] 02/02/24 Logged 5/325mg Tab ([place] 19:15 Ondansetron Hcl [facility] 02/02/24 Logged (Zofran) 19:15 Morphine Sulfate [facility] 02/02/24 Logged Injection 19:15 Notify Md Of Changes [facility] 02/02/24 In Process From Base 19:05 Oxygen By Nasal RT 02/02/24 Transmitted Cannula 19:05 Albuterol Medneb [facility] 02/02/24 Logged (Ventolin Medneb) 19:30 Ipratropium Medneb [facility] 02/02/24 Logged (Atrovent Medneb) 19:30 Med Neb Initial RT 02/02/24 Logged Treatment 19:30 Aspirin Tablet [facility] 02/03/24 Logged 10:00 Clopidogrel Bisulfate [facility] 02/02/24 Logged (Plavix) 19:45 Metoprolol Tartrate [facility] 02/02/24 Logged Tablet (Lopressor Ta 22:00 Problem List: (1) Acute renal failure (2) Hypotension (3) Syncope and collapse Date of Service: Feb 02, 2024 Billing Provider: LIANE VALENCIA MD Common Visit Codes: [id number] CARE 30-74 MIN LIANE VALENCIA MD Feb 02, 2024 20:09
[2024-02-02 20:31] LABS: Base Excess -12.4 mmol/L (-2.0-3.0)
[2024-02-02 20:45] VITALS: BP 126/68; PULSE 130; RESP 26; TEMP 99.1; O2SAT 98
[2024-02-02 21:30] VITALS: PULSE 111; RESP 25; O2SAT 98
[2024-02-02] MEDS: ACETAMINOPHEN 500 MG TAB or CAP PO ONE (21:52)
[2024-02-02] MEDS: MIDODRINE HCL 10 MG TAB PO ONE (21:52)
[2024-02-02] MEDS: METOPROLOL TARTRATE 25 MG TAB PO SCH (22:00)
[2024-02-02] MEDS: FUROSEMIDE 40 MG/4 ML VIAL IV SCH (22:00)
[2024-02-02] MEDS: CLOPIDOGREL BISULFATE 75 MG TAB PO ONE (22:24)
[2024-02-02] MEDS: metroNIDAZOLE 500MG/100ML 100 ML IV ONE (22:25)
[2024-02-02] MEDS: NOREPINEPHRINE 8 MG/250ML KIT 250 ML IV SCH (23:00)
[2024-02-03] MEDS: PHENYLEPHRINE IV 250 ML IV ONE (01:48)
[2024-02-03] MEDS: PHENYLEPHRINE IV 250 ML IV SCH (02:00)
[2024-02-03] MEDS: HYDROcodone-ACET 5/325MG TAB PO PRN (03:19)
--- NOTE | 2024-02-03 03:23 | DVH ---
Critical Finding: Examination: CXR1 Clinical Indication: CENTRAL LINEW INSERTION Comparison: None. Technique: Frontal radiograph of the chest was obtained. Findings: PICC line is noted on the right side, with its tip in the inferior vena cava, needs retraction by at least approximately 5.5 cm so that the tip lies at the cavoatrial junction. Lungs are clear and well expanded, with no pulmonary infiltrate or pleural effusion. There is no pneumothorax. No evidence of cardiomegaly. Degenerative changes in the visualized thoracic spine. No acute osseous abnormality is seen. Impression: 1. No acute cardiopulmonary disease is seen. 2. PICC line on the right side with its tip in the inferior vena cava, needs retraction by at least approximately 5.5 cm so that the tip lies at the cavoatrial junction. Electronically Signed 02/03/2024 03:14 Zoila Andrea
[2024-02-03 04:49] LABS: Hematocrit 36.8 % (36.0-46.0); Hemoglobin 11.8 g/dL (12.2-16.2); Mean Corpuscular Hemoglobin 31.1 pg (28.0-32.0); Mean Corpuscular Hgb Conc. 32.2 g/dL (32.0-36.0); Mean Corpuscular Volume 96.7 fL (80.0-100.0); Platelet Count (auto) 114 10^3/uL (140-450); Red Cell Distribution Width 17.6 % (11.8-14.3); White Blood Cell 19.1 10^3/uL (4.4-10.8)
[2024-02-03 05:01] LABS: Chloride 107 mmol/L (98-107); Potassium 3.4 mmol/L (3.5-5.1); Sodium 137 mmol/L (136-145)
[2024-02-03 05:02] LABS: Anion Gap 19 (5-15); Calcium 8.1 mg/dL (8.7-10.4); Carbon Dioxide 11 mmol/L (20-31)
[2024-02-03 05:06] LABS: Basophils % (manual) 0 (0.0-2.0); Blast Cells 0; Metamyelocytes % 0; Myelocytes % 0; Promyelocytes % 0; Reactive Lymphocytes 0
[2024-02-03 05:07] LABS: BUN/Creatinine Ratio 10.2 (10.0-20.0); Blood Urea Nitrogen 37 mg/dL (9-23); Glucose 84 mg/dL (74-106)
[2024-02-03 05:29] LABS: Band Neutrophils % (manual) 6; Eosinophils % (manual) 1 (0-7); Lymphocytes % (manual) 9 (10.0-50.0); Monocytes % (manual) 15 (0-12); Platelet Estimate Decreased
[2024-02-03] MEDS: MIDODRINE HCL 10 MG TAB PO SCH (06:29)
[2024-02-03 06:33] VITALS: O2SAT 94
[2024-02-03 07:38] VITALS: PULSE 96; RESP 22; O2SAT 95
[2024-02-03] MEDS: ASPirin 81 mg TAB PO SCH (10:00)
[2024-02-03] MEDS: cefTRIAXone 1GM/50ML D5W 50 ML IV SCH (10:07)
--- NOTE | 2024-02-03 11:56 | ECG ---
[facility] Test Date: 2024-02-02 Test Time: 19:20:01 Pat Name: CAITLYN RICHARDSON Department: ER Room: [address] [place] [address] A Gender: F [employer]ger: LEONID : [id number] Requested By: AUDREY MENDEZ Order Number: [id number] Reading MD: Edwardo Casas Measurements Intervals [place] Rate: 130 P: 75 CT: 122 QRS: 50 QRSD: 81 T: 38 QT: 337 QTc: 496 Interpretive Statements Sinus tachycardia Borderline low voltage, extremity leads Borderline prolonged QT interval Electronically Signed On 02-03-2024 17:46:31 PST by Edwardo Casas Please click the below link to view image of tracing.
--- NOTE | 2024-02-03 12:20 | DVH ---
CAROTID ARTERIAL DOPPLER CLINICAL HISTORY: syncope TECHNIQUE: Doppler study of bilateral carotid/vertebral arteries were performed. Comparison: None FINDINGS: The bilateral common carotid, external and internal carotid arteries appear patent without hemodynami emma significant stenosis. There is no significant flow limiting plaque formation identified.The sp ectral wave forms and peak systolic velocities are within normal limits. Antegrade flow is present within the vertebral arteries with appropriate velocities and waveforms. Right ICA/CCA PSV ratio = 1.2. Left ICA/CCA PSV ratio = 0.7 . IMPRESSION: 1. No hemodynamically significant stenosis within the carotid arteries. HS:Y
[2024-02-03] MEDS ORDERED: APIX2.5T PO (15:53)
[2024-02-03] MEDS ORDERED: LACT10SO3 PO (15:53)
[2024-02-03] MEDS ORDERED: NITR0.4S29 SL (15:53)
[2024-02-03] MEDS ORDERED: LEV75T PO (15:53)
[2024-02-03] MEDS ORDERED: CYAN10006 PO (15:53)
[2024-02-03] MEDS ORDERED: CHOL1TAB30 PO (15:53)
[2024-02-03] MEDS ORDERED: ATOR10TA52 PO (15:53)
[2024-02-03] MEDS ORDERED: SEMA4INJ SC (15:53)
[2024-02-03] MEDS ORDERED: LISI2.5T47 PO (15:53)
[2024-02-03] MEDS ORDERED: FAMO-12 PO (15:53)
[2024-02-03 15:58] LABS: COVID19 ANTIGEN SOFIA FIA NEGATIVE (NEGATIVE); Rapid Influenza A Negative (Negative); Rapid Influenza B Negative (Negative)
--- NOTE | 2024-02-03 16:58 | DVHPN2 ---
Subjective 78 year old female came to ER for N/V/D BP is low on vasopressors Flu like symptoms, weakness x days Cough x 2 years Changes from previous H/P or p: Changes Eyes: No Pain, No Vision change, No Conjunctivae inflammation, No Eyelid inflammation, No Other, No Redness ENT: No Ear pain, No Ear discharge, No Nose pain, No Nose discharge, No Nose congestion, No Mouth pain, No Mouth swelling, No Throat pain, No Throat swelling, No Other Cardiovascular: Chest Pain, Palpitations Respiratory: Cough, Shortness of breath Gastrointestinal: No Nausea, No Vomiting, No Abdominal Pain, No Diarrhea, No Constipation, No Melena, No Hematochezia, No Other Genitourinary: No Dysuria, No Frequency, No Incontinence, No Hematuria, No Retention, No Other Musculoskeletal: No other, No neck pain, No shoulder pain, No arm pain, No back pain, No hand pain, No leg pain, No foot pain Skin: No Rash, No Lesions, No Jaundice, No Bruising, No Other Objective Vitals Vital Signs Date Time Temp Pulse Resp B/P (MAP) Pulse Ox O2 Delivery O2 Flow Rate FiO2 02/03/24 16:01 97.7 86 18 96/45 (62) 97 97.7 02/03/24 07:38 Nasal Cannula* 5 40 Intake/Output Intake and Output 02/03/24 06:59 Intake Total 4495.00 ml Balance 4495.00 ml Intake IV Total 4495.00 ml General Appearance: Alert, Other (somenolent) Lungs: Clear to auscultation, Normal air movement Cardiovascular: Regular rate, Normal S1, Normal S2 Abdomen: Normal bowel sounds, Soft, No tenderness Extremities: No edema Medications Current Medications Medications Dose Ordered Sig/Ariella Route Start Time Stop Time Status Last Admin Dose Admin Ceftriaxone Sodium 50 ml @ 100 mls/hr DAILY IV 02/03/24 10:00 02/03/24 10:07 100 MLS/HR Furosemide 40 mg BID IV 02/02/24 22:00 02/03/24 10:18 40 MG Sodium Chloride 1,000 ml @ 75 mls/hr [id number] IV 02/02/24 19:15 Diagnostic Test (Pha) 1 strip IQ4HR 02/02/24 20:00 02/03/24 16:02 1 STRIP Insulin Human Regular IQ4HR SC 02/02/24 20:00 Dextrose 50 ml UD PRN IV 02/02/24 19:15 Lorazepam 0.5 mg Q6HP PRN PO 02/02/24 19:15 Al Hydrox/Mg Hydrox/Simethicone 30 ml Q6HP PRN PO 02/02/24 19:15 Docusate Sodium 100 mg BIDPRN PRN PO 02/02/24 19:15 Acetaminophen 650 mg Q6HP PRN PO 02/02/24 19:15 Acetaminophen/ Hydrocodone Bitart 1 tab Q4HP PRN PO 02/02/24 19:15 02/03/24 03:19 1 TAB Ondansetron HCl 4 mg Q4HP PRN IV 02/02/24 19:15 Morphine Sulfate 2 mg Q4HPRN PRN IV 02/02/24 19:15 Albuterol 2.5 mg Q4HWA PRN NEB 02/02/24 19:30 Ipratropium [place] 0.5 mg Q4HWA PRN NEB 02/02/24 19:30 Aspirin 81 mg DAILY PO 02/03/24 10:00 Metoprolol Tartrate 12.5 mg BID PO 02/02/24 22:00 Midodrine 10 mg TID@0600,1200,1800 PO 02/03/24 06:00 02/03/24 12:34 10 MG Norepinephrine Bitartrate 250 ml @ 3.75 mls/hr Q24H IV 02/02/24 23:00 02/03/24 11:36 18.75 MLS/HR Phenylephrine HCl 250 ml @ 30 mls/hr Q8H20M IV 02/03/24 01:45 02/03/24 10:12 30 MLS/HR Laboratory Results Laboratory Tests 02/03/24 04:20 Chemistry Test 02/03/24 04:20 Calcium Level 8.1 mg/dL (8.7-10.4) L Urinalysis Test 02/02/24 16:00 Urine Color Yellow (Yellow) Urine Clarity Turbid (Clear) H Urine pH 5.5 (5.0-9.0) Urine Specific [place] 1.013 (1.001-1.035) Urine Protein 1+ (Negative) H Urine Ketones Negative (Negative) Urine Blood 2+ /uL (Negative) H Urine Nitrite Negative (Negative) Urine Bilirubin Negative (Negative) Urine Urobilinogen Normal mg/dL (Negative) Urine Leukocyte Esterase 1+ /uL (Negative) Urine RBC 2 /hpf (0 - 4) Urine WBC 24 /hpf (0 - 5) Urine Squamous Epithelial Cells Few /hpf (<5) Urine Amorphous Crystals Few /hpf (None Seen) Urine Bacteria Many /hpf (None Seen) H Urine Glucose Normal mg/dL (Normal) Blood Gas Results Test 02/02/24 20:25 Arterial Blood pH 7.285 (7.350-7.450) FiO2 % 50.0 Microbiology Microbiology Date/Time Source Procedure Growth Status 02/02/24 16:00 Urine - [place] Urine Culture - Preliminary Resulted Assessment/Plan Assessment/Plan МАРИЯ Intractable N/V/D UTI h/o DVT LLE Hypothyroidism DM2 Dyslipidemia PLAN: IV fluids Vasopressors IV antibiotics: Rocephin and Flagyl Protonix Discussed with daughter over the phone DNR DC Lasix DC Metoprolol DC Midodrine Plan discussed with: Patient My Orders Orders - XAVIER AIKEN MD Procedure Category Date Status Time * Wound Consult CONS 02/03/24 Transmitted Echo 2d Mode Cardiac US 02/03/24 Logged DOP 11:37 Carotid Duplx W Color US 02/03/24 Resulted DOP 11:37 Date of Service: Feb 03, 2024 Billing Provider: XAVIER AIKEN MD Common Visit Codes: NOT BILLABLE XAVIER AIKEN MD Feb 03, 2024 16:58
[2024-02-03] MEDS: ACCU-CHEK COMFORT CURVE STRIP VI SCH (17:00)
[2024-02-03] MEDS: InsuLIN REG 1unit/0.01ml Soln (100units/ml) SC SCH (17:00)
[2024-02-03] MEDS: PANTOPRAZOLE 40 MG/10 ML VIAL INJ IV ONE (17:28)
[2024-02-03 19:30] VITALS: PULSE 55; RESP 16; O2SAT 96
[2024-02-03] MEDS: MORPHINE SULFATE INJ 2 MG/ml SYRG IV PRN (21:41)
[2024-02-03 22:38] VITALS: PULSE 90; RESP 20; O2SAT 94
[2024-02-03] MEDS: IPRATROPIUM BROM 0.5 MG/2.5ML INH SOL NEB PRN (22:38)
[2024-02-03] MEDS: ALBUTEROL SULF 2.5 MG/0.5ML(0.5%) NEB SOLN NEB PRN (22:38)
[2024-02-03 22:48] VITALS: PULSE 102; RESP 20; O2SAT 96
[2024-02-04] VITALS (17 sets, daily range): BP systolic 93–111; BP diastolic 46–53; PULSE 86–102; RESP 16–26; TEMP 98.1–98.4; O2SAT 94–99
[2024-02-04 04:54] LABS: Hemoglobin 12.3 g/dL (12.2-16.2)
[2024-02-04 04:56] LABS: Mean Corpuscular Hemoglobin 31.4 pg (28.0-32.0); Mean Corpuscular Hgb Conc. 33.2 g/dL (32.0-36.0); Mean Corpuscular Volume 94.6 fL (80.0-100.0); Platelet Count (auto) 56 10^3/uL (140-450); Red Blood Cells 3.92 10^6/uL (4.0-5.20); White Blood Cell 18.3 10^3/uL (4.4-10.8)
[2024-02-04 05:10] LABS: Basophils % (manual) 0 (0.0-2.0); Blast Cells 0; Eosinophils % (manual) 0 (0-7); INR 1.4 (0.9-1.15); Metamyelocytes % 0; Myelocytes % 0; Promyelocytes % 0; Prothrombin Time 14.5 sec (9.3-11.8); Reactive Lymphocytes 0
[2024-02-04 05:11] LABS: Alanine Aminotransferase 59 U/L (7-40); Albumin 3.5 g/dL (3.2-4.8); Alkaline Phosphatase 156 U/L (46-116); Anion Gap 17 (5-15); Aspartate Aminotransferase 51 U/L (13-40); BUN/Creatinine Ratio 15.9 (10.0-20.0); Calcium 8.2 mg/dL (8.7-10.4); Carbon Dioxide 12 mmol/L (20-31); Chloride 110 mmol/L (98-107); Glucose 95 mg/dL (74-106); Magnesium 2.2 mg/dL (1.6-2.6); Potassium 4.1 mmol/L (3.5-5.1); Sodium 139 mmol/L (136-145); Total Protein 6.3 g/dL (5.7-8.2)
[2024-02-04 05:12] LABS: Bilirubin, Total 1.2 mg/dL (0.2-1.0); Blood Urea Nitrogen 53 mg/dL (9-23)
[2024-02-04] MEDS: VASOPRESSIN 20 UNITS in SODIUM CHL 0.9% 99 ML IV SCH (05:30)
[2024-02-04 06:59] LABS: Band Neutrophils % (manual) 7; Lymphocytes % (manual) 11 (10.0-50.0); Monocytes % (manual) 9 (0-12)
[2024-02-04 07:00] LABS: Ovalocytes FEW; Platelet Estimate Decreased
[2024-02-04 07:34] LABS: Base Excess -15.8 mmol/L (-2.0-3.0)
[2024-02-04] MEDS ORDERED: SODIUM BICARB IV SCH (08:45)
[2024-02-04] MEDS ORDERED: SODIUM CHL 0.9% IV SCH (08:45)
[2024-02-04] MEDS: PANTOPRAZOLE 40 MG/10 ML VIAL INJ IV SCH (10:00)
[2024-02-04] MEDS: SODIUM BICARB 50mEq/50ml Vial 50 ML in SODIUM CHLORIDE 0.9% 1,000 ML IV SCH (10:00)
--- NOTE | 2024-02-04 12:49 | DVHINCON2 ---
Date of service: Feb 04, [address] Dey Reason for Consultation Acute kidney injury History of Present Illness Mrs. Mckinley is a 78-year-old female with known history of chronic kidney disease, lost to follow up with outpatient CKD Clinic who presented for further evaluation and management of reported vague abdominal discomfort per her self- report. She was seen in the emergency department, patient's is at bedside. She denies recent fevers, chills, vomiting. Denies gross hematuria or dysuria. Her clinical course has been notable for CT imaging of the abdomen notable for right-sided hydronephrosis without definitive finding of obstructive nephrolithiasis. Her serum creatinine has been down trending with current management in the emergency department. Past Medical History Coronary artery disease Heart failure Syncope Dyslipidemia Diabetes Allergies: Coded Allergies: Penicillins (Verified Allergy, Unknown, 02/02/24) Home Meds Reported Medications Nitroglycerin (Nitrostat) 0.4 Mg Sub, 0.4 MG SL Q5MIN PRN for FOR CHEST PAIN, INJ DISSOLVE ONE TABLET UNDER THE TONGUE EVERY 5 MINUTES NEEDED FOR CHEST PAIN. DO NOT EXCEED A TOTAL OF 3 DOSES IN 15 MINUTES. IF NO RELIEF, CALL 911 02/03/24 Famotidine (Famotidine) 20 Mg Tab, 20 MG PO BID, MG 02/03/24 Apixaban Base (ELIQUIS) 2.5 Mg Tab, 2.5 MG PO BID, TAB 02/03/24 Lactulose (Lactulose) 10 Gm/15 Ml Rebecca, 15 ML PO DAILY PRN for FOR CONSTIPATION, ML 02/03/24 Semaglutide (Ozempic) 4 Mg/3 Ml Inj, 1 MG SC QWEEKLY, INJ 02/03/24 Cyanocobalamin (Vitamin B-12 Cr) 1,000 Mcg Tab, 1000 MCG PO DAILY, TAB 02/03/24 Levothyroxine Sodium (Synthroid) 75 Mcg Tab, 75 MCG PO QAM, TAB 02/03/24 Lisinopril (Lisinopril) 2.5 Mg Tab, 2.5 MG PO DAILY, MG 02/03/24 Cholecalciferol (Gnp Vitamin D) 1,000 Unit Tab, 1000 UNIT PO DAILY, TAB 02/03/24 Atorvastatin Calcium (ATORVASTATIN CALCIUM) 10 Mg Tab, 10 MG PO HS, TAB 02/03/24 Current Medications Current Medications Medications (Trade) Dose Ordered Sig/Ariella Route PRN Reason Start Time Stop Time Status Last Admin Pantoprazole Sodium (Protonix) 40 mg DAILY IV 02/04/24 10:00 02/04/24 10:00 Diagnostic Test (Pha) (Accu-Chek Comfort Curve T) 1 strip ACHS 02/03/24 17:00 02/04/24 11:39 Insulin Human Regular (InsuLIN R) ACHS SC 02/03/24 17:00 Vasopressin 20 units/Sodium Chloride 100 ml @ 9 mls/hr Q11H7M IV 02/04/24 05:30 Sodium Bicarbonate 50 ml/ Sodium Chloride 1,050 ml @ 50 mls/hr Q21H IV 02/04/24 08:45 02/04/24 09:49 DC Sodium Bicarbonate 50 ml/ Sodium Chloride 1,050 ml @ 50 mls/hr Q21H IV 02/04/24 10:00 02/04/24 10:00 Review of Systems Review of systems is as per history of present illness otherwise all systems are reviewed and are noncontributory. H&P Exam Vital Signs/I&O Vital Sign Date Time Temp Pulse Resp B/P (MAP) Pulse Ox O2 Delivery O2 Flow Rate FiO2 02/04/24 12:16 96 14 104/36 (58) 02/04/24 12:04 98.6 95 98.6 02/04/24 06:42 Nasal Cannula* 5 40 Intake and Output 02/03/24 02/04/24 19:00 07:00 Intake Total 650.00 ml Output Total 585 ml 700 ml Balance 65.00 ml -700 ml Intake IV Total 650.00 ml Output Urine Total 585 ml 700 ml Physical Exam Gen: nad, appears stated age heent: nc/at, mmm lungs: cta anteriorly cvs: no rub abd: soft, bowel sounds audible ext: no edema skin: no rash neuro: alert and oriented Labs/Diagnostic Data Labs/Diagnostic Data Laboratory Tests Test 02/04/24 11:38 02/04/24 07:06 02/04/24 06:43 02/04/24 04:43 Range/Units POC Glucose 109 H 94 70-106 mg/dl Blood Gas Specimen Type Arterial Blood Gas Sample Site Right radial Blood Gas Patient Temperature 37.0 Arterial Blood Date Drawn [id number] Arterial Blood pH 7.206 *L 7.350-7.450 Arterial Blood Partial Pressure CO2 27.3 L 32.0-45.0 mmHg Arterial Blood Partial Pressure O2 101.0 83.0-108.0 mmHg Arterial Blood HCO3 10.6 L 21.0-28.0 mmol/L Arterial Blood Oxygen Saturation 97.3 94.0-98.0 % Arterial Blood Base Excess -15.8 L -2.0-3.0 mmol/L Arterial Blood Oxyhemoglobin 96.3 94.0-98.0 % Arterial Blood Carboxyhemoglobin 0.4 L 0.5-1.5 % Arterial Blood Methemoglobin 0.6 0.0-1.5 % Gonzalo Test Yes Blood Gas Total Hemoglobin 12.30 12.0-16.0 g/dL Blood Gas Liter Flow 4.00 Blood Gas Modality Nasal cannula FiO2 % 36.0 Blood Gas Critical Value Read Back Yes Blood Gas Notified Whom Gerson banda dnp Blood Gas Notified Time [id number] Blood Gas Notified By Kirsten law rt White Blood Count 18.3 H 4.4-10.8 10^3/uL Red Blood Count 3.92 L 4.0-5.20 10^6/uL Hemoglobin 12.3 12.2-16.2 g/dL Hematocrit 37.0 36.0-46.0 % Mean Corpuscular Volume 94.6 80.0-100.0 fL Mean Corpuscular Hemoglobin 31.4 28.0-32.0 pg Mean Corpuscular Hemoglobin Concent 33.2 32.0-36.0 g/dL Red Cell Distribution Width 18.0 H 11.8-14.3 % Platelet Count 56 L 140-450 10^3/uL Mean Platelet Volume 8.5 6.9-10.8 fL Neutrophils (%) (Auto) 37.0-80.0 % Lymphocytes (%) (Auto) 10.0-50.0 % Monocytes (%) (Auto) 0.0-12.0 % Basophils (%) (Auto) 0.0-2.0 % Neutrophils # (Auto) 1.6-8.6 10 ^3/uL Lymphocytes # (Auto) 0.4-5.4 10 ^3/uL Monocytes # (Auto) 0-1.3 10 ^3/uL Differential Total Cells Counted 100.0 100 Neutrophils % (Manual) 73 37.0-80.0 Band Neutrophils % (Manual) 7 Lymphocytes % (Manual) 11 10.0-50.0 Monocytes % (Manual) 9 0-12 Eosinophils % (Manual) 0 0-7 Basophils % (Manual) 0 0.0-2.0 Metamyelocytes % (manual) 0 Myelocytes % (Manual) 0 Promyelocytes % (Manual) 0 Blast Cells % (Manual) 0 Reactive Lymphocytes 0 Platelet Estimate Decreased Ovalocytes Few [place] Cells Few Prothrombin Time 14.5 H 9.3-11.8 sec Prothrombin Time INR 1.40 H 0.9-1.15 Activated Partial Thromboplast Time 28.0 24.5-34.5 SEC Sodium Level 139 136-145 mmol/L Potassium Level 4.1 3.5-5.1 mmol/L Chloride Level 110 H 98-107 mmol/L Carbon Dioxide Level 12 L 20-31 mmol/L Anion Gap 17 H 5-15 Blood Urea Nitrogen 53 #H 9-23 mg/dL Creatinine 3.33 H 0.550-1.02 mg/dL Glomerular Filtration Rate Calc 14 >90 mL/min BUN/Creatinine Ratio 15.9 10.0-20.0 Serum Glucose 95 74-106 mg/dL Hemoglobin A1c 6.2 H <5.7 % A1C Calcium Level 8.2 L 8.7-10.4 mg/dL Magnesium Level 2.2 1.6-2.6 mg/dL Total Bilirubin 1.2 H 0.2-1.0 mg/dL Aspartate Amino Transferase (AST) 51 H 13-40 U/L Alanine Aminotransferase (ALT) 59 H 7-40 U/L Alkaline Phosphatase 156 H 46-116 U/L Total Protein 6.3 5.7-8.2 g/dL Albumin 3.5 3.2-4.8 g/dL Test 02/04/24 02:36 02/03/24 21:44 02/03/24 14:55 02/03/24 14:30 Range/Units POC Glucose 106 86 126 H 70-106 mg/dl Influenza Type A Antigen Negative Negative Influenza Type B Antigen Negative Negative SARS-CoV-2 Antigen (Rapid) Negative NEGATIVE Test 02/03/24 07:50 02/03/24 04:20 02/03/24 04:19 02/03/24 00:44 Range/Units POC Glucose 108 H 81 81 70-106 mg/dl White Blood Count 19.1 #H 4.4-10.8 10^3/uL Red Blood Count 3.80 L 4.0-5.20 10^6/uL Hemoglobin 11.8 L 12.2-16.2 g/dL Hematocrit 36.8 # 36.0-46.0 % Mean Corpuscular Volume 96.7 80.0-100.0 fL Mean Corpuscular Hemoglobin 31.1 28.0-32.0 pg Mean Corpuscular Hemoglobin Concent 32.2 32.0-36.0 g/dL Red Cell Distribution Width 17.6 H 11.8-14.3 % Platelet Count 114 L 140-450 10^3/uL Mean Platelet Volume 8.4 6.9-10.8 fL Neutrophils (%) (Auto) 37.0-80.0 % Lymphocytes (%) (Auto) 10.0-50.0 % Monocytes (%) (Auto) 0.0-12.0 % Eosinophils (%) (Auto) 0.0-7.0 % Basophils (%) (Auto) 0.0-2.0 % Neutrophils # (Auto) 1.6-8.6 10 ^3/uL Lymphocytes # (Auto) 0.4-5.4 10 ^3/uL Monocytes # (Auto) 0-1.3 10 ^3/uL Differential Total Cells Counted 100.0 100 Neutrophils % (Manual) 69 37.0-80.0 Band Neutrophils % (Manual) 6 Lymphocytes % (Manual) 9 L 10.0-50.0 Monocytes % (Manual) 15 H 0-12 Eosinophils % (Manual) 1 0-7 Basophils % (Manual) 0 0.0-2.0 Metamyelocytes % (manual) 0 Myelocytes % (Manual) 0 Promyelocytes % (Manual) 0 Blast Cells % (Manual) 0 Reactive Lymphocytes 0 Platelet Estimate Decreased Sodium Level 137 136-145 mmol/L Potassium Level 3.4 L 3.5-5.1 mmol/L Chloride Level 107 98-107 mmol/L Carbon Dioxide Level 11 L 20-31 mmol/L Anion Gap 19 H 5-15 Blood Urea Nitrogen 37 H 9-23 mg/dL Creatinine 3.64 H 0.550-1.02 mg/dL Glomerular Filtration Rate Calc 12 >90 mL/min BUN/Creatinine Ratio 10.2 10.0-20.0 Serum Glucose 84 74-106 mg/dL Calcium Level 8.1 L 8.7-10.4 mg/dL Test 02/02/24 21:04 02/02/24 20:25 02/02/24 19:07 02/02/24 16:20 Range/Units POC Glucose 89 114 H 70-106 mg/dl Blood Gas Specimen Type Arterial Blood Gas Sample Site Right radial Blood Gas Patient Temperature 37.0 Arterial Blood Date Drawn [id number] Arterial Blood pH 7.285 L 7.350-7.450 Arterial Blood Partial Pressure CO2 27.7 L 32.0-45.0 mmHg Arterial Blood Partial Pressure O2 144.7 H 83.0-108.0 mmHg Arterial Blood HCO3 12.9 L 21.0-28.0 mmol/L Arterial Blood Oxygen Saturation 98.7 H 94.0-98.0 % Arterial Blood Base Excess -12.4 L -2.0-3.0 mmol/L Arterial Blood Oxyhemoglobin 97.7 94.0-98.0 % Arterial Blood Carboxyhemoglobin 0.3 L 0.5-1.5 % Arterial Blood Methemoglobin 0.7 0.0-1.5 % Gonzalo Test Yes Blood Gas Total Hemoglobin 11.10 L 12.0-16.0 g/dL Blood Gas Modality Mask - bipap FiO2 % 50.0 Blood Gas EPAP 5 Blood Gas IPAP 12 Lactic Acid Level 2.2 *H 0.4-2.0 mmol/L Troponin I High Sensitivity 39 *H </=34 ng/L Test 02/02/24 16:00 02/02/24 14:06 02/02/24 13:38 02/02/24 13:13 Range/Units Urine Color Yellow Yellow Urine Clarity Turbid H Clear Urine pH 5.5 5.0-9.0 Urine Specific [place] 1.013 1.001-1.035 Urine Protein 1+ H Negative Urine Ketones Negative Negative Urine Blood 2+ H Negative /uL Urine Nitrite Negative Negative Urine Bilirubin Negative Negative Urine Urobilinogen Normal Negative mg/dL Urine Leukocyte Esterase 1+ Negative /uL Urine RBC 2 0 - 4 /hpf Urine WBC 24 0 - 5 /hpf Urine Squamous Epithelial Cells Few <5 /hpf Urine Amorphous Crystals Few None Seen /hpf Urine Bacteria Many H None Seen /hpf Urine Glucose Normal Normal mg/dL Troponin I High Sensitivity 43 *H 49 *H </=34 ng/L White Blood Count 13.4 H 4.4-10.8 10^3/uL Red Blood Count 3.49 L 4.0-5.20 10^6/uL Hemoglobin 10.8 L 12.2-16.2 g/dL Hematocrit 32.6 L 36.0-46.0 % Mean Corpuscular Volume 93.6 80.0-100.0 fL Mean Corpuscular Hemoglobin 30.9 28.0-32.0 pg Mean Corpuscular Hemoglobin Concent 33.0 32.0-36.0 g/dL Red Cell Distribution Width 17.6 H 11.8-14.3 % Platelet Count 113 L 140-450 10^3/uL Mean Platelet Volume 7.5 6.9-10.8 fL Neutrophils (%) (Auto) 37.0-80.0 % Lymphocytes (%) (Auto) 10.0-50.0 % Monocytes (%) (Auto) 0.0-12.0 % Basophils (%) (Auto) 0.0-2.0 % Neutrophils # (Auto) 1.6-8.6 10 ^3/uL Lymphocytes # (Auto) 0.4-5.4 10 ^3/uL Monocytes # (Auto) 0-1.3 10 ^3/uL Differential Total Cells Counted 100.0 100 Neutrophils % (Manual) 56 37.0-80.0 Band Neutrophils % (Manual) 24 Lymphocytes % (Manual) 10 10.0-50.0 Monocytes % (Manual) 10 0-12 Eosinophils % (Manual) 0 0-7 Basophils % (Manual) 0 0.0-2.0 Metamyelocytes % (manual) 0 Myelocytes % (Manual) 0 Promyelocytes % (Manual) 0 Blast Cells % (Manual) 0 Reactive Lymphocytes 0 Platelet Estimate Decreased Lactic Acid Level 3.4 *H 0.4-2.0 mmol/L B-Type Natriuretic Peptide 1080.30 0-100 pg/mL Prothrombin Time 14.5 H 9.3-11.8 sec Prothrombin Time INR 1.40 H 0.9-1.15 Activated Partial Thromboplast Time 35.6 H 24.5-34.5 SEC Sodium Level 135 L 136-145 mmol/L Potassium Level 5.3 H 3.5-5.1 mmol/L Chloride Level 104 98-107 mmol/L Carbon Dioxide Level 21 20-31 mmol/L Anion Gap 10 5-15 Blood Urea Nitrogen 45 H 9-23 mg/dL Creatinine 3.94 H 0.550-1.02 mg/dL Glomerular Filtration Rate Calc 11 >90 mL/min BUN/Creatinine Ratio 11.4 10.0-20.0 Serum Glucose 126 H 74-106 mg/dL Calcium Level 8.4 L 8.7-10.4 mg/dL Magnesium Level 1.5 L 1.6-2.6 mg/dL Total Bilirubin 1.0 0.2-1.0 mg/dL Aspartate Amino Transferase (AST) 59 H 13-40 U/L Alanine Aminotransferase (ALT) 51 H 7-40 U/L Alkaline Phosphatase 68 46-116 U/L Total Protein 5.6 L 5.7-8.2 g/dL Albumin 3.1 L 3.2-4.8 g/dL Microbiology Date/Time Source Procedure Growth Status 02/02/24 16:00 Urine - [place] [place] Urine Culture - Final Klebsiella pneumoniae Complete Assessment IMP: 1) Hemodynamically mediated МАРИЯ/VMN in the setting of mild volume depletion also possibly component of obstructive uropathy that may be resolving with potential passage of nephrolith. 2) CKD stage IIIA 3) diabetes 4) hypertension 5) hypothyroidism REC: - IV fluids at maintenance - strict Is&Os, we will check urine sodium, serial chemistry panels - avoidance of NSAIDs, IV contrast studies, Shlomo or ARB during time course of МАРИЯ - we will continue to follow closely with you - discussed plan of care from Nephrology perspective with patient and patient's was at bedside Thank you for the consultation. Plan discussed with: Patient, Spouse COLLINS LOPES MD Feb 04, 2024 12:49
--- NOTE | 2024-02-04 13:13 | DVHINCON2 ---
Date Seen: Feb 04, 2024 Referring Physician MD Yissel Reason for Consultation CHF History of Present Illness This is a 78-year-old female patient who presents to the emergency room after sustaining a syncopal episode at home prior to admission. The patient reports that she was using the restroom and the next thing she remembers is waking up on the ground face down. Patient reports loss of consciousness and can not remember if she hit her head. According to family at bedside, the patient has been experiencing nausea vomiting and diarrhea for a few days prior to admission. Initial twelve lead electrocardiogram reveals sinus tachycardia without significant ST segment changes. Initial troponin level of 49ng/L with flat trend thereafter. Initial BNP level of 1080.3pg/mL. Significant past med ical history includes hypertension, hyperlipidemia, left lower extremity DVT, hypothyroidism, and obesity. The patient denies any previous significant cardiac history, does not see a rug setter [place] in the outpatient setting. Past Medical History Past medical history reviewed. No other significant than mentioned above. Past Surgical History Cholecystectomy Family History Family history reviewed. Social History Denies the use of tobacco, alcohol or illicit drugs. Allergies: Coded Allergies: Penicillins (Verified Allergy, Unknown, 02/02/24) Home Meds Reported Medications Nitroglycerin (Nitrostat) 0.4 Mg Sub, 0.4 MG SL Q5MIN PRN for FOR CHEST PAIN, INJ DISSOLVE ONE TABLET UNDER THE TONGUE EVERY 5 MINUTES NEEDED FOR CHEST PAIN. DO NOT EXCEED A TOTAL OF 3 DOSES IN 15 MINUTES. IF NO RELIEF, CALL 911 02/03/24 Famotidine (Famotidine) 20 Mg Tab, 20 MG PO BID, MG 02/03/24 Apixaban Base (ELIQUIS) 2.5 Mg Tab, 2.5 MG PO BID, TAB 02/03/24 Lactulose (Lactulose) 10 Gm/15 Ml Rebecca, 15 ML PO DAILY PRN for FOR CONSTIPATION, ML 02/03/24 Semaglutide (Ozempic) 4 Mg/3 Ml Inj, 1 MG SC QWEEKLY, INJ 02/03/24 Cyanocobalamin (Vitamin B-12 Cr) 1,000 Mcg Tab, 1000 MCG PO DAILY, TAB 02/03/24 Levothyroxine Sodium (Synthroid) 75 Mcg Tab, 75 MCG PO QAM, TAB 02/03/24 Lisinopril (Lisinopril) 2.5 Mg Tab, 2.5 MG PO DAILY, MG 02/03/24 Cholecalciferol (Gnp Vitamin D) 1,000 Unit Tab, 1000 UNIT PO DAILY, TAB 02/03/24 Atorvastatin Calcium (ATORVASTATIN CALCIUM) 10 Mg Tab, 10 MG PO HS, TAB 02/03/24 Home Meds Home medications reviewed. Current Medications Current Medications Medications (Trade) Dose Ordered Sig/Ariella Route PRN Reason Start Time Stop Time Status Last Admin Pantoprazole Sodium (Protonix) 40 mg DAILY IV 02/04/24 10:00 02/04/24 10:00 Diagnostic Test (Pha) (Accu-Chek Comfort Curve T) 1 strip ACHS 02/03/24 17:00 02/04/24 11:39 Insulin Human Regular (InsuLIN R) ACHS SC 02/03/24 17:00 Vasopressin 20 units/Sodium Chloride 100 ml @ 9 mls/hr Q11H7M IV 02/04/24 05:30 Sodium Bicarbonate 50 ml/ Sodium Chloride 1,050 ml @ 50 mls/hr Q21H IV 02/04/24 08:45 02/04/24 09:49 DC Sodium Bicarbonate 50 ml/ Sodium Chloride 1,050 ml @ 50 mls/hr Q21H IV 02/04/24 10:00 02/04/24 10:00 Review of Systems Constitutional: No symptom reported Ears, Nose, & Throat: No symptom reported Eyes: No symptom reported Neurological: Syncope Pulmonary/Respiratory: No symptoms reported Cardiovascular: No symptom reported Gastrointestinal: Nausea, vomiting, diarrhea Genitourinary: No symptom reported Musculoskeletal: No symptom reported Skin: No symptom reported Psychiatric: No symptom reported Endocrine: No symptom reported Hematologic/Lymphatic: No symptom reported Vital Signs Vital Signs Date Time Temp Pulse Resp B/P (MAP) Pulse Ox O2 Delivery O2 Flow Rate FiO2 02/04/24 13:01 96 16 105/37 (59) 96 02/04/24 12:04 98.6 98.6 02/04/24 06:42 Nasal Cannula* 5 40 Physical Exam General Appearance: Cooperative. Obese Pulmonary/Respiratory: Clear, bilateral breaths sounds. Cardiovascular/Chest: Regular rate and rhythm. Peripheral Pulses: 2+ Radial (R). 2+ Radial (L). 2+ Pedal (R). 2+ Pedal (L) Abdominal Exam: Normal bowel sounds. Ankle Exam: Negative ankle edema Lower extremities: Negative lower extremity edema Neuro/Mental Status: A/OX4, coherent. Thoughts/Psych: Normal thought pattern. Appropriate mood and affect. Good judgment and insight. Appearance: No acute distress. Skin Exam: Normal inspection. Normal color. Warm and dry. Labs/Diagnostic Data Labs Test 02/04/24 11:38 02/04/24 07:06 02/04/24 04:43 02/03/24 14:30 Range/Units POC Glucose 109 H 70-106 mg/dl Blood Gas Specimen Type Arterial Blood Gas Sample Site Right radial Blood Gas Patient Temperature 37.0 Arterial Blood Date Drawn Arterial Blood pH 7.206 *L 7.350-7.450 Arterial Blood Partial Pressure CO2 27.3 L 32.0-45.0 mmHg Arterial Blood Partial Pressure O2 101.0 83.0-108.0 mmHg Arterial Blood HCO3 10.6 L 21.0-28.0 mmol/L Arterial Blood Oxygen Saturation 97.3 94.0-98.0 % Arterial Blood Base Excess -15.8 L -2.0-3.0 mmol/L Arterial Blood Oxyhemoglobin 96.3 94.0-98.0 % Arterial Blood Carboxyhemoglobin 0.4 L 0.5-1.5 % Arterial Blood Methemoglobin 0.6 0.0-1.5 % Gonzalo Test Yes Blood Gas Total Hemoglobin 12.30 12.0-16.0 g/dL Blood Gas Liter Flow 4.00 Blood Gas Modality Nasal cannula FiO2 % 36.0 Blood Gas Critical Value Read Back Yes Blood Gas Notified Whom Gerson banda dnp Blood Gas Notified Time Blood Gas Notified By Kirsten law rt White Blood Count 18.3 H 4.4-10.8 10^3/uL Red Blood Count 3.92 L 4.0-5.20 10^6/uL Hemoglobin 12.3 12.2-16.2 g/dL Hematocrit 37.0 36.0-46.0 % Mean Corpuscular Volume 94.6 80.0-100.0 fL Mean Corpuscular Hemoglobin 31.4 28.0-32.0 pg Mean Corpuscular Hemoglobin Concent 33.2 32.0-36.0 g/dL Red Cell Distribution Width 18.0 H 11.8-14.3 % Platelet Count 56 L 140-450 10^3/uL Mean Platelet Volume 8.5 6.9-10.8 fL Neutrophils (%) (Auto) 37.0-80.0 % Lymphocytes (%) (Auto) 10.0-50.0 % Monocytes (%) (Auto) 0.0-12.0 % Basophils (%) (Auto) 0.0-2.0 % Neutrophils # (Auto) 1.6-8.6 10 ^3/uL Lymphocytes # (Auto) 0.4-5.4 10 ^3/uL Monocytes # (Auto) 0-1.3 10 ^3/uL Differential Total Cells Counted 100.0 100 Neutrophils % (Manual) 73 37.0-80.0 Band Neutrophils % (Manual) 7 Lymphocytes % (Manual) 11 10.0-50.0 Monocytes % (Manual) 9 0-12 Eosinophils % (Manual) 0 0-7 Basophils % (Manual) 0 0.0-2.0 Metamyelocytes % (manual) 0 Myelocytes % (Manual) 0 Promyelocytes % (Manual) 0 Blast Cells % (Manual) 0 Reactive Lymphocytes 0 Platelet Estimate Decreased Ovalocytes Few [place] Cells Few Prothrombin Time 14.5 H 9.3-11.8 sec Prothrombin Time INR 1.40 H 0.9-1.15 Activated Partial Thromboplast Time 28.0 24.5-34.5 SEC Sodium Level 139 136-145 mmol/L Potassium Level 4.1 3.5-5.1 mmol/L Chloride Level 110 H 98-107 mmol/L Carbon Dioxide Level 12 L 20-31 mmol/L Anion Gap 17 H 5-15 Blood Urea Nitrogen 53 #H 9-23 mg/dL Creatinine 3.33 H 0.550-1.02 mg/dL Glomerular Filtration Rate Calc 14 >90 mL/min BUN/Creatinine Ratio 15.9 10.0-20.0 Serum Glucose 95 74-106 mg/dL Hemoglobin A1c 6.2 H <5.7 % A1C Calcium Level 8.2 L 8.7-10.4 mg/dL Magnesium Level 2.2 1.6-2.6 mg/dL Total Bilirubin 1.2 H 0.2-1.0 mg/dL Aspartate Amino Transferase (AST) 51 H 13-40 U/L Alanine Aminotransferase (ALT) 59 H 7-40 U/L Alkaline Phosphatase 156 H 46-116 U/L Total Protein 6.3 5.7-8.2 g/dL Albumin 3.5 3.2-4.8 g/dL Influenza Type A Antigen Negative Negative Influenza Type B Antigen Negative Negative SARS-CoV-2 Antigen (Rapid) Negative NEGATIVE Test 02/03/24 04:20 02/02/24 20:25 02/02/24 16:20 02/02/24 16:00 Range/Units Eosinophils (%) (Auto) 0.0-7.0 % Blood Gas EPAP 5 Blood Gas IPAP 12 Lactic Acid Level 2.2 *H 0.4-2.0 mmol/L Troponin I High Sensitivity 39 *H </=34 ng/L Urine Color Yellow Yellow Urine Clarity Turbid H Clear Urine pH 5.5 5.0-9.0 Urine Specific [place] 1.013 1.001-1.035 Urine Protein 1+ H Negative Urine Ketones Negative Negative Urine Blood 2+ H Negative /uL Urine Nitrite Negative Negative Urine Bilirubin Negative Negative Urine Urobilinogen Normal Negative mg/dL Urine Leukocyte Esterase 1+ Negative /uL Urine RBC 2 0 - 4 /hpf Urine WBC 24 0 - 5 /hpf Urine Squamous Epithelial Cells Few <5 /hpf Urine Amorphous Crystals Few None Seen /hpf Urine Bacteria Many H None Seen /hpf Urine Glucose Normal Normal mg/dL Test 02/02/24 13:38 Range/Units B-Type Natriuretic Peptide 1080.30 0-100 pg/mL Microbiology Date/Time Source Procedure Growth Status 02/02/24 16:00 Urine - [facility] [place] Urine Culture - Final Klebsiella pneumoniae Complete Assessment Syncope, rule out cardiac etiology NTEMI type II secondary to urosepsis History of hypertension now with hypotension Hyperlipidemia Thrombocytopenia History of left lower extremity DVT Type 2 diabetes mellitus Hypothyroidism Chronic kidney disease Obesity Plan/Recommendation We will continue with the following plan/recommendations (Dr. Kirby): * Transthoracic echocardiogram reveals EF 65% * Vasopressors for hemodynamic support * Bilateral carotid ultrasound: Negative for stenosis * D/C aspirin given thrombocytopenia * Cardiac surveillance: Monitor for any ECG changes and notify cardio team immediately * Antibiotics per primary care team Patient seen and examined at bedside with . Plan of care discussed with the patient and family. Thank you for allowing us to care for this patient. Please call with any questions or concerns. Critical care time spent: 40 minutes This medical document was created using an electronic medical record system with voice recognition software and computerized dictation system. Although this document has been carefully reviewed, there might still be some phonetic and typographical errors. Occasional wrong-word or ``sound-alike substitutions may have occurred due to the inherent limitations of voice recognition software. These areas are purely typographical due to imperfections of the software programs and do not reflect any compromise in the patient's medical care. Please read the chart carefully and recognize, using context, where these substitutions have occurred. Plan discussed with: Patient Date of Service: Feb 04, 2024 Billing Provider: JORGE THOMAS Cardiology Common Codes: 39313-[id number] INP/OBS CARE (High) Cardiology Consultation Codes: 24482-[id number] CONSULT <45MIN JORGE THOMAS Feb 04, 2024 13:13
--- NOTE | 2024-02-04 15:03 | DVHSR ---
APPROVED REPORT EXAM: LIMITED Two-dimensional and M-mode echocardiogram with Doppler and color Doppler. Blood Pressure: 101/45 mmHg INDICATION Syncope RISK FACTORS Height: 5' 1", Weight: 150 DIMENSIONS LVDd4.2 (3.8-5.7cm)LA (2D)3.7 (1.9-4.0cm)Aortic Root3.0 (2.0-3.7cm) LVDs2.7 (2.5-4.0cm)LA (MM) (1.9-4.0cm)Aortic Cusp Exc1.5 (1.5-2.0cm) EF (%) 65.0 (55-70%)Rt. Atrium3.9 (1.9-4.0cm)Asc. Aorta cm IVSd0.9 (0.7-1.1cm)RV (D) (1.8-2.4cm) PWd0.9 (0.7-1.1cm) Mitral Valve MitralMitral Stenosis E wave1.20m/sMV Mean GR.mmHg A wave1.30m/sMV Peak GR.mmHg E/A ratio0.92D MVAcm2 Aortic Valve Aortic ValveAortic Stenosis V10.90m/Jeffry Mean GR.6mmHg V21.60m/Jeffry Peak GR.11mmHg LVOT Diameter2.2 (1.8-2.4cm)Doppler AVA2.14cm2 Pulmonic Valve V20.80m/s Tricuspid Valve TR Velocity2.40m/s [id number] Conclusion MODERATELY DILATED RV AND RA MILD HYPOKINESIS OF RV DYSKINESIS OF IVS STUDY REVEAL RV FAILURE POSTERIOR MITRAL LEAFLET IS CALCIFIED NORMALTV,PV AND AORTIC VALVE NO EFFUSION MILD LVH AND MILD LV DIASTOLIC DYSFUNCTION LV EJECTION FRACTION IS 65%
--- NOTE | 2024-02-04 15:37 | DVHPN2 ---
Subjective She is complaining of some respiratory distress She is on 2-3 L nasal cannula Wheezing in the chest Creatinine is 3.3 Carbon dioxide is 12, metabolic acidosis White count 18 Urine culture showed Klebsiella sensitive to ceftriaxone Changes from previous H/P or p: Changes Eyes: No Pain, No Vision change, No Conjunctivae inflammation, No Eyelid inflammation, No Other, No Redness ENT: No Ear pain, No Ear discharge, No Nose pain, No Nose discharge, No Nose congestion, No Mouth pain, No Mouth swelling, No Throat pain, No Throat swelling, No Other Cardiovascular: Chest Pain, Palpitations Respiratory: Cough, Shortness of breath Gastrointestinal: No Nausea, No Vomiting, No Abdominal Pain, No Diarrhea, No Constipation, No Melena, No Hematochezia, No Other Genitourinary: No Dysuria, No Frequency, No Incontinence, No Hematuria, No Retention, No Other Musculoskeletal: No other, No neck pain, No shoulder pain, No arm pain, No back pain, No hand pain, No leg pain, No foot pain Skin: No Rash, No Lesions, No Jaundice, No Bruising, No Other Objective Vitals Vital Signs Date Time Temp Pulse Resp B/P (MAP) Pulse Ox O2 Delivery O2 Flow Rate FiO2 02/04/24 15:10 102/46 02/04/24 15:01 91 20 97 02/04/24 12:04 98.6 98.6 02/04/24 06:42 Nasal Cannula* 5 40 Intake/Output Intake and Output 02/04/24 07:00 Intake Total 650.00 ml Output Total 1285 ml Balance -635.00 ml Intake IV Total 650.00 ml Output Urine Total 1285 ml General Appearance: Alert, Other (somenolent) Lungs: Clear to auscultation, Normal air movement Cardiovascular: Regular rate, Normal S1, Normal S2 Abdomen: Normal bowel sounds, Soft, No tenderness Extremities: No edema Medications Current Medications Medications Dose Ordered Sig/Ariella Route Start Time Stop Time Status Last Admin Dose Admin Ceftriaxone Sodium 50 ml @ 100 mls/hr DAILY IV 02/03/24 10:00 02/04/24 10:00 100 MLS/HR Dextrose 50 ml UD PRN IV 02/02/24 19:15 Al Hydrox/Mg Hydrox/Simethicone 30 ml Q6HP PRN PO 02/02/24 19:15 Acetaminophen 650 mg Q6HP PRN PO 02/02/24 19:15 Ondansetron HCl 4 mg Q4HP PRN IV 02/02/24 19:15 Morphine Sulfate 2 mg Q4HPRN PRN IV 02/02/24 19:15 02/03/24 21:41 2 MG Albuterol 2.5 mg Q4HWA PRN NEB 02/02/24 19:30 02/04/24 11:31 2.5 MG Ipratropium [place] 0.5 mg Q4HWA PRN NEB 02/02/24 19:30 02/04/24 11:31 0.5 MG Aspirin 81 mg DAILY PO 02/03/24 10:00 02/04/24 10:00 81 MG Norepinephrine Bitartrate 250 ml @ 3.75 mls/hr Q24H IV 02/02/24 23:00 02/03/24 11:36 18.75 MLS/HR Phenylephrine HCl 250 ml @ 30 mls/hr Q8H20M IV 02/03/24 01:45 02/04/24 01:45 48.75 MLS/HR Pantoprazole Sodium 40 mg DAILY IV 02/04/24 10:00 02/04/24 10:00 40 MG Diagnostic Test (Pha) 1 strip ACHS 02/03/24 17:00 02/04/24 11:39 1 STRIP Insulin Human Regular ACHS SC 02/03/24 17:00 Vasopressin 20 units/Sodium Chloride 100 ml @ 9 mls/hr Q11H7M IV 02/04/24 05:30 Sodium Bicarbonate 50 ml/ Sodium Chloride 1,050 ml @ 50 mls/hr Q21H IV 02/04/24 10:00 02/04/24 10:00 50 MLS/HR Laboratory Results Laboratory Tests 02/04/24 04:43 Chemistry Test 02/04/24 04:43 Albumin 3.5 g/dL (3.2-4.8) Calcium Level 8.2 mg/dL (8.7-10.4) L Magnesium Level 2.2 mg/dL (1.6-2.6) Total Protein 6.3 g/dL (5.7-8.2) Coagulation Test 02/04/24 04:43 Prothrombin Time 14.5 sec (9.3-11.8) H Prothrombin Time INR 1.40 (0.9-1.15) H Activated Partial Thromboplast Time 28.0 SEC (24.5-34.5) LFT Test 02/04/24 04:43 Alanine Aminotransferase (ALT) 59 U/L (7-40) H Alkaline Phosphatase 156 U/L (46-116) H Aspartate Amino Transferase (AST) 51 U/L (13-40) H Total Bilirubin 1.2 mg/dL (0.2-1.0) H HgA1c, TSH Test 02/04/24 04:43 Hemoglobin A1c 6.2 % A1C (<5.7) H Urinalysis Test 02/02/24 16:00 Urine Color Yellow (Yellow) Urine Clarity Turbid (Clear) H Urine pH 5.5 (5.0-9.0) Urine Specific [place] 1.013 (1.001-1.035) Urine Protein 1+ (Negative) H Urine Ketones Negative (Negative) Urine Blood 2+ /uL (Negative) H Urine Nitrite Negative (Negative) Urine Bilirubin Negative (Negative) Urine Urobilinogen Normal mg/dL (Negative) Urine Leukocyte Esterase 1+ /uL (Negative) Urine RBC 2 /hpf (0 - 4) Urine WBC 24 /hpf (0 - 5) Urine Squamous Epithelial Cells Few /hpf (<5) Urine Amorphous Crystals Few /hpf (None Seen) Urine Bacteria Many /hpf (None Seen) H Urine Glucose Normal mg/dL (Normal) Blood Gas Results Test 02/04/24 07:06 Arterial Blood pH 7.206 (7.350-7.450) FiO2 % 36.0 Microbiology Microbiology Date/Time Source Procedure Growth Status 02/02/24 16:00 Urine - [place] Urine Culture - Final Klebsiella pneumoniae Complete Assessment/Plan Assessment/Plan МАРИЯ Intractable N/V/D UTI h/o DVT LLE Hypothyroidism DM2 Dyslipidemia PLAN: IV fluids Vasopressors IV antibiotics: Rocephin and Flagyl Protonix Discussed with daughter over the phone DNR DC Lasix DC Metoprolol DC Midodrine 02/04/2024: Continue vasopressors as needed Continue Rocephin IV Continue IV fluids Add sodium bicarbonate drip to correct the metabolic acidosis Nephrology consultation Avoid NSAIDs and contrast and Shlomo or arbs DNR Discussed with the family at the bedside Plan discussed with: Patient, Other My Orders Orders - XAVIER AIKEN MD Procedure Category Date Status Time * Cardiology Consult CONS 02/03/24 Transmitted 16:28 Pantoprazole PHA 02/04/24 In Process (Protonix) 10:00 Glucose Blood PHA 02/03/24 In Process (Accu-Chek Comfort 17:00 Insulin R (Human) PHA 02/03/24 In Process (Insulin R) 17:00 *[facility] CONS 02/04/24 Transmitted -[place] 11:41 Apply Z-Guard DEMETRI 02/04/24 In Process 14:23 Date of Service: Feb 04, 2024 Billing Provider: XAVIER AIKEN MD Common Visit Codes: [id number] INP/OBS CARE(HIGH) XAVIER AIKEN MD Feb 04, 2024 15:37
--- NOTE | 2024-02-04 20:45 | DVHINCON2 ---
Date Seen: Feb 04, 2024 Referring Physician MD Yissel Reason for Consultation CHF History of Present Illness This is a 78-year-old female with a past medical history of hypertension, hyperlipidemia, left lower extremity DVT, hypothyroidism, and obesity who presents to the ED after sustaining a syncopal episode at home. Patient reports that she was using the restroom and the next thing she remembers is waking up on the ground face down. Patient endorses loss of consciousness and can not remember if she hit her head. According to family at bedside, the patient has been experiencing nausea vomiting and diarrhea for a few days.Patient denies any previous significant cardiac history, does not see a adoption manager in the outpatient setting. Initial twelve lead electrocardiogram reveals sinus tachycardia without significant ST segment changes. Initial troponin level of 49ng/L with flat trend thereafter. Initial BNP level of 1080.3pg/mL, WBC 18.3, BUN 53, HEALTH AND SAFETY DIRECTOR 3.33. Cervical spine CT is WNL. Chest x-ray shows NAD. Patient was admitted to the hospital. I am asked to consult on this patient. Allergies: Coded Allergies: Penicillins (Verified Allergy, Unknown, 02/02/24) Home Meds Reported Medications Nitroglycerin (Nitrostat) 0.4 Mg Sub, 0.4 MG SL Q5MIN PRN for FOR CHEST PAIN, INJ DISSOLVE ONE TABLET UNDER THE TONGUE EVERY 5 MINUTES NEEDED FOR CHEST PAIN. DO NOT EXCEED A TOTAL OF 3 DOSES IN 15 MINUTES. IF NO RELIEF, CALL 911 02/03/24 Famotidine (Famotidine) 20 Mg Tab, 20 MG PO BID, MG 02/03/24 Apixaban Base (ELIQUIS) 2.5 Mg Tab, 2.5 MG PO BID, TAB 02/03/24 Lactulose (Lactulose) 10 Gm/15 Ml Rebecca, 15 ML PO DAILY PRN for FOR CONSTIPATION, ML 02/03/24 Semaglutide (Ozempic) 4 Mg/3 Ml Inj, 1 MG SC QWEEKLY, INJ 02/03/24 Cyanocobalamin (Vitamin B-12 Cr) 1,000 Mcg Tab, 1000 MCG PO DAILY, TAB 02/03/24 Levothyroxine Sodium (Synthroid) 75 Mcg Tab, 75 MCG PO QAM, TAB 02/03/24 Lisinopril (Lisinopril) 2.5 Mg Tab, 2.5 MG PO DAILY, MG 02/03/24 Cholecalciferol (Gnp Vitamin D) 1,000 Unit Tab, 1000 UNIT PO DAILY, TAB 02/03/24 Atorvastatin Calcium (ATORVASTATIN CALCIUM) 10 Mg Tab, 10 MG PO HS, TAB 02/03/24 Current Medications Current Medications Medications (Trade) Dose Ordered Sig/Ariella Route PRN Reason Start Time Stop Time Status Last Admin Pantoprazole Sodium (Protonix) 40 mg DAILY IV 02/04/24 10:00 02/04/24 10:00 Diagnostic Test (Pha) (Accu-Chek Comfort Curve T) 1 strip ACHS 02/03/24 17:00 02/04/24 11:39 Insulin Human Regular (InsuLIN R) ACHS SC 02/03/24 17:00 Vasopressin 20 units/Sodium Chloride 100 ml @ 9 mls/hr Q11H7M IV 02/04/24 05:30 Sodium Bicarbonate 50 ml/ Sodium Chloride 1,050 ml @ 50 mls/hr Q21H IV 02/04/24 08:45 02/04/24 09:49 DC Sodium Bicarbonate 50 ml/ Sodium Chloride 1,050 ml @ 50 mls/hr Q21H IV 02/04/24 10:00 02/04/24 10:00 Review of Systems Constitutional: No symptom reported Ears, Nose, & Throat: No symptom reported Eyes: No symptom reported Neurological: Syncope Pulmonary/Respiratory: No symptoms reported Cardiovascular: No symptom reported Gastrointestinal: Nausea, vomiting, diarrhea Genitourinary: No symptom reported Musculoskeletal: No symptom reported Skin: No symptom reported Psychiatric: No symptom reported Endocrine: No symptom reported Hematologic/Lymphatic: No symptom reported Vital Signs Vital Signs Date Time Temp Pulse Resp B/P (MAP) Pulse Ox O2 Delivery O2 Flow Rate FiO2 02/04/24 16:37 88/38 02/04/24 15:30 95 21 97 02/04/24 12:04 98.6 98.6 02/04/24 06:42 Nasal Cannula* 5 40 Physical Exam GENERAL: Awake, alert, oriented. Morbidly obese. LUNGS: Clear. CARDIOVASCULAR: Heart sounds are good. ABDOMEN: Soft. Labs/Diagnostic Data Labs Test 02/04/24 11:38 02/04/24 07:06 02/04/24 04:43 02/03/24 14:30 Range/Units POC Glucose 109 H 70-106 mg/dl Blood Gas Specimen Type Arterial Blood Gas Sample Site Right radial Blood Gas Patient Temperature 37.0 Arterial Blood Date Drawn Arterial Blood pH 7.206 *L 7.350-7.450 Arterial Blood Partial Pressure CO2 27.3 L 32.0-45.0 mmHg Arterial Blood Partial Pressure O2 101.0 83.0-108.0 mmHg Arterial Blood HCO3 10.6 L 21.0-28.0 mmol/L Arterial Blood Oxygen Saturation 97.3 94.0-98.0 % Arterial Blood Base Excess -15.8 L -2.0-3.0 mmol/L Arterial Blood Oxyhemoglobin 96.3 94.0-98.0 % Arterial Blood Carboxyhemoglobin 0.4 L 0.5-1.5 % Arterial Blood Methemoglobin 0.6 0.0-1.5 % Gonzalo Test Yes Blood Gas Total Hemoglobin 12.30 12.0-16.0 g/dL Blood Gas Liter Flow 4.00 Blood Gas Modality Nasal cannula FiO2 % 36.0 Blood Gas Critical Value Read Back Yes Blood Gas Notified Whom Gerson banda dnp Blood Gas Notified Time [id number] Blood Gas Notified By Kirsten law rt White Blood Count 18.3 H 4.4-10.8 10^3/uL Red Blood Count 3.92 L 4.0-5.20 10^6/uL Hemoglobin 12.3 12.2-16.2 g/dL Hematocrit 37.0 36.0-46.0 % Mean Corpuscular Volume 94.6 80.0-100.0 fL Mean Corpuscular Hemoglobin 31.4 28.0-32.0 pg Mean Corpuscular Hemoglobin Concent 33.2 32.0-36.0 g/dL Red Cell Distribution Width 18.0 H 11.8-14.3 % Platelet Count 56 L 140-450 10^3/uL Mean Platelet Volume 8.5 6.9-10.8 fL Neutrophils (%) (Auto) 37.0-80.0 % Lymphocytes (%) (Auto) 10.0-50.0 % Monocytes (%) (Auto) 0.0-12.0 % Basophils (%) (Auto) 0.0-2.0 % Neutrophils # (Auto) 1.6-8.6 10 ^3/uL Lymphocytes # (Auto) 0.4-5.4 10 ^3/uL Monocytes # (Auto) 0-1.3 10 ^3/uL Differential Total Cells Counted 100.0 100 Neutrophils % (Manual) 73 37.0-80.0 Band Neutrophils % (Manual) 7 Lymphocytes % (Manual) 11 10.0-50.0 Monocytes % (Manual) 9 0-12 Eosinophils % (Manual) 0 0-7 Basophils % (Manual) 0 0.0-2.0 Metamyelocytes % (manual) 0 Myelocytes % (Manual) 0 Promyelocytes % (Manual) 0 Blast Cells % (Manual) 0 Reactive Lymphocytes 0 Platelet Estimate Decreased Ovalocytes Few Ariel Cells Few Prothrombin Time 14.5 H 9.3-11.8 sec Prothrombin Time INR 1.40 H 0.9-1.15 Activated Partial Thromboplast Time 28.0 24.5-34.5 SEC Sodium Level 139 136-145 mmol/L Potassium Level 4.1 3.5-5.1 mmol/L Chloride Level 110 H 98-107 mmol/L Carbon Dioxide Level 12 L 20-31 mmol/L Anion Gap 17 H 5-15 Blood Urea Nitrogen 53 #H 9-23 mg/dL Creatinine 3.33 H 0.550-1.02 mg/dL Glomerular Filtration Rate Calc 14 >90 mL/min BUN/Creatinine Ratio 15.9 10.0-20.0 Serum Glucose 95 74-106 mg/dL Hemoglobin A1c 6.2 H <5.7 % A1C Calcium Level 8.2 L 8.7-10.4 mg/dL Magnesium Level 2.2 1.6-2.6 mg/dL Total Bilirubin 1.2 H 0.2-1.0 mg/dL Aspartate Amino Transferase (AST) 51 H 13-40 U/L Alanine Aminotransferase (ALT) 59 H 7-40 U/L Alkaline Phosphatase 156 H 46-116 U/L Total Protein 6.3 5.7-8.2 g/dL Albumin 3.5 3.2-4.8 g/dL Influenza Type A Antigen Negative Negative Influenza Type B Antigen Negative Negative SARS-CoV-2 Antigen (Rapid) Negative NEGATIVE Test 02/03/24 04:20 02/02/24 20:25 02/02/24 16:20 02/02/24 16:00 Range/Units Eosinophils (%) (Auto) 0.0-7.0 % Blood Gas EPAP 5 Blood Gas IPAP 12 Lactic Acid Level 2.2 *H 0.4-2.0 mmol/L Troponin I High Sensitivity 39 *H </=34 ng/L Urine Color Yellow Yellow Urine Clarity Turbid H Clear Urine pH 5.5 5.0-9.0 Urine Specific [place] 1.013 1.001-1.035 Urine Protein 1+ H Negative Urine Ketones Negative Negative Urine Blood 2+ H Negative /uL Urine Nitrite Negative Negative Urine Bilirubin Negative Negative Urine Urobilinogen Normal Negative mg/dL Urine Leukocyte Esterase 1+ Negative /uL Urine RBC 2 0 - 4 /hpf Urine WBC 24 0 - 5 /hpf Urine Squamous Epithelial Cells Few <5 /hpf Urine Amorphous Crystals Few None Seen /hpf Urine Bacteria Many H None Seen /hpf Urine Glucose Normal Normal mg/dL Test 02/02/24 13:38 Range/Units B-Type Natriuretic Peptide 1080.30 0-100 pg/mL Microbiology Date/Time Source Procedure Growth Status 02/02/24 16:00 Urine - [place] Urine Culture - Final Klebsiella pneumoniae Complete Assessment Syncope, rule out cardiac etiology. NTEMI type II secondary to urosepsis. History of hypertension now with hypotension. Hyperlipidemia. Thrombocytopenia. History of left lower extremity DV. Type 2 diabetes mellitus. Hypothyroidism. Chronic kidney disease. Obesity. Plan/Recommendation I agree with your ongoing assessment and care of plan. Patient has been seen by Maria A Chahal NP on my behalf, her and I discussed the plan with the patient. Transthoracic echocardiogram reveals EF 65% Vasopressors for hemodynamic support Bilateral carotid ultrasound: Negative for stenosis D/C aspirin given thrombocytopenia Cardiac surveillance: Monitor for any ECG changes and notify cardio team immediately Antibiotics per primary care team Additional plan as per the hospital course. Plan discussed with: Patient Date of Service: Feb 04, 2024 Billing Provider: BIBIANA AVILA MD Cardiology Common Codes: [id number] INP/OBS CARE (High) Cardiology Consultation Codes: [id number] CONSULT <45MIN BIBIANA AVILA MD Feb 04, 2024 16:59
[2024-02-05] VITALS (103 sets, daily range): BP systolic 95–131; BP diastolic 20–66; PULSE 81–110; RESP 11–30; TEMP 95.7–99.1; O2SAT 94–100
[2024-02-05 06:20] LABS: Hematocrit 30.9 % (36.0-46.0); Hemoglobin 10.3 g/dL (12.2-16.2); Mean Corpuscular Hemoglobin 30.9 pg (28.0-32.0); Mean Corpuscular Hgb Conc. 33.2 g/dL (32.0-36.0); Mean Corpuscular Volume 93.2 fL (80.0-100.0); Platelet Count (auto) 44 10^3/uL (140-450); Red Blood Cells 3.32 10^6/uL (4.0-5.20); White Blood Cell 16.4 10^3/uL (4.4-10.8)
[2024-02-05 06:33] LABS: Alanine Aminotransferase 39 U/L (7-40); Albumin 3.1 g/dL (3.2-4.8); Alkaline Phosphatase 187 U/L (46-116); Anion Gap 17 (5-15); Aspartate Aminotransferase 26 U/L (13-40); BUN/Creatinine Ratio 22.8 (10.0-20.0); Bilirubin, Total 0.8 mg/dL (0.2-1.0); Blood Urea Nitrogen 61 mg/dL (9-23); Calcium 8.6 mg/dL (8.7-10.4); Carbon Dioxide 13 mmol/L (20-31); Chloride 112 mmol/L (98-107); Cholesterol 78 mg/dL (< 200); Glucose 118 mg/dL (74-106); HDL Cholesterol < 5 mg/dL (40-59); LDL Cholesterol 15 mg/dL (< 100); Magnesium 2.1 mg/dL (1.6-2.6); Potassium 3.6 mmol/L (3.5-5.1); Sodium 142 mmol/L (136-145); Total Protein 5.6 g/dL (5.7-8.2); Triglycerides 241 mg/dL (< 150)
[2024-02-05 06:47] LABS: Basophils % (manual) 0 (0.0-2.0); Blast Cells 0; Eosinophils % (manual) 0 (0-7); Metamyelocytes % 0; Myelocytes % 0; Promyelocytes % 0; Reactive Lymphocytes 0
[2024-02-05 08:01] LABS: Band Neutrophils % (manual) 1; Lymphocytes % (manual) 9 (10.0-50.0); Monocytes % (manual) 1 (0-12)
[2024-02-05 08:02] LABS: Platelet Estimate Decreased
[2024-02-05] MEDS: D5 IV SCH (14:15)
[2024-02-05] MEDS: DOXYCYCLINE 100MG/250ML 250 ML IV SCH (14:15)
[2024-02-05] MEDS: SODIUM BICARB IV SCH (14:15)
[2024-02-05] MEDS: SOD CHLO IV SCH (14:15)
--- NOTE | 2024-02-05 14:16 | DVHPN2 ---
Subjective Confused She is on still on Levophed drip She is on bicarbonate drip The CO2 is still 13 Creatinine is improved Changes from previous H/P or p: Changes Eyes: No Pain, No Vision change, No Conjunctivae inflammation, No Eyelid inflammation, No Other, No Redness ENT: No Ear pain, No Ear discharge, No Nose pain, No Nose discharge, No Nose congestion, No Mouth pain, No Mouth swelling, No Throat pain, No Throat swelling, No Other Cardiovascular: Chest Pain, Palpitations Respiratory: Cough, Shortness of breath Gastrointestinal: No Nausea, No Vomiting, No Abdominal Pain, No Diarrhea, No Constipation, No Melena, No Hematochezia, No Other Genitourinary: No Dysuria, No Frequency, No Incontinence, No Hematuria, No Retention, No Other Musculoskeletal: No other, No neck pain, No shoulder pain, No arm pain, No back pain, No hand pain, No leg pain, No foot pain Skin: No Rash, No Lesions, No Jaundice, No Bruising, No Other Objective Vitals Vital Signs Date Time Temp Pulse Resp B/P (MAP) Pulse Ox O2 Delivery O2 Flow Rate FiO2 02/05/24 14:00 18 99 Nasal Cannula* 2 28 02/05/24 12:49 91 02/05/24 09:45 117/45 (69) 02/05/24 08:00 97.4 97.4 Intake/Output Intake and Output 02/05/24 07:00 Intake Total 2236.25 ml Output Total 900 ml Balance 1336.25 ml Intake Oral 420 ml IV Total 1816.25 ml Output Urine Total 900 ml General Appearance: Alert, Other (somenolent) Lungs: Clear to auscultation, Normal air movement Cardiovascular: Regular rate, Normal S1, Normal S2 Abdomen: Normal bowel sounds, Soft, No tenderness Extremities: No edema Medications Current Medications Medications Dose Ordered Sig/Ariella Route Start Time Stop Time Status Last Admin Dose Admin Ceftriaxone Sodium 50 ml @ 100 mls/hr DAILY IV 02/03/24 10:00 02/05/24 10:21 100 MLS/HR Dextrose 50 ml UD PRN IV 02/02/24 19:15 Al Hydrox/Mg Hydrox/Simethicone 30 ml Q6HP PRN PO 02/02/24 19:15 Acetaminophen 650 mg Q6HP PRN PO 02/02/24 19:15 Ondansetron HCl 4 mg Q4HP PRN IV 02/02/24 19:15 Morphine Sulfate 2 mg Q4HPRN PRN IV 02/02/24 19:15 02/03/24 21:41 2 MG Albuterol 2.5 mg Q4HWA PRN NEB 02/02/24 19:30 02/05/24 09:32 2.5 MG Ipratropium [place] 0.5 mg Q4HWA PRN NEB 02/02/24 19:30 02/05/24 09:32 0.5 MG Norepinephrine Bitartrate 250 ml @ 3.75 mls/hr Q24H IV 02/02/24 23:00 02/05/24 05:07 18.75 MLS/HR Phenylephrine HCl 250 ml @ 30 mls/hr Q8H20M IV 02/03/24 01:45 02/04/24 01:45 48.75 MLS/HR Pantoprazole Sodium 40 mg DAILY IV 02/04/24 10:00 02/05/24 10:21 40 MG Diagnostic Test (Pha) 1 strip ACHS 02/03/24 17:00 02/05/24 13:10 1 STRIP Insulin Human Regular ACHS SC 02/03/24 17:00 Vasopressin 20 units/Sodium Chloride 100 ml @ 9 mls/hr Q11H7M IV 02/04/24 05:30 Sodium Bicarbonate 50 ml/ Sodium Chloride 1,050 ml @ 50 mls/hr Q21H IV 02/04/24 10:00 02/05/24 06:19 50 MLS/HR Enteral Nutritional Formula 240 ml BID PO 02/05/24 22:00 Laboratory Results Laboratory Tests 02/05/24 05:34 Chemistry Test 02/05/24 05:34 Albumin 3.1 g/dL (3.2-4.8) L Calcium Level 8.6 mg/dL (8.7-10.4) L Magnesium Level 2.1 mg/dL (1.6-2.6) Total Protein 5.6 g/dL (5.7-8.2) L Lipid panel Test 02/05/24 05:34 Cholesterol Level 78 mg/dL (< 200) HDL Cholesterol < 5 mg/dL (40-59) L Triglycerides Level 241 mg/dL (< 150) H LFT Test 02/05/24 05:34 Alanine Aminotransferase (ALT) 39 U/L (7-40) Alkaline Phosphatase 187 U/L (46-116) H Aspartate Amino Transferase (AST) 26 U/L (13-40) Total Bilirubin 0.8 mg/dL (0.2-1.0) HgA1c, TSH Test 02/05/24 05:34 Thyroid Stimulating Hormone (TSH) 0.77 uIU/mL (0.55-4.78) Urinalysis Test 02/02/24 16:00 Urine Color Yellow (Yellow) Urine Clarity Turbid (Clear) H Urine pH 5.5 (5.0-9.0) Urine Specific [place] 1.013 (1.001-1.035) Urine Protein 1+ (Negative) H Urine Ketones Negative (Negative) Urine Blood 2+ /uL (Negative) H Urine Nitrite Negative (Negative) Urine Bilirubin Negative (Negative) Urine Urobilinogen Normal mg/dL (Negative) Urine Leukocyte Esterase 1+ /uL (Negative) Urine RBC 2 /hpf (0 - 4) Urine WBC 24 /hpf (0 - 5) Urine Squamous Epithelial Cells Few /hpf (<5) Urine Amorphous Crystals Few /hpf (None Seen) Urine Bacteria Many /hpf (None Seen) H Urine Glucose Normal mg/dL (Normal) Microbiology Microbiology Date/Time Source Procedure Growth Status 02/02/24 16:00 Urine - [place] Urine Culture - Final Klebsiella pneumoniae Complete Assessment/Plan Assessment/Plan МАРИЯ Intractable N/V/D UTI h/o DVT LLE Hypothyroidism DM2 Dyslipidemia PLAN: IV fluids Vasopressors IV antibiotics: Rocephin and Flagyl Protonix Discussed with daughter over the phone DNR DC Lasix DC Metoprolol DC Midodrine 02/04/2024: Continue vasopressors as needed Continue Rocephin IV Continue IV fluids Add sodium bicarbonate drip to correct the metabolic acidosis Nephrology consultation Avoid NSAIDs and contrast and Shlomo or arbs DNR Discussed with the family at the bedside 02/05/2024: Continue Levophed drip Continue IV Rocephin Continue IV fluids with D5 NS with sodium bicarbonate Nephrology consult DNR Add doxycycline IV Plan discussed with: Patient My Orders Orders - XAVIER AIKEN MD Procedure Category Date Status Time Apply Z-Guard DEMETRI 02/04/24 In Process 14:23 Nutritional PHA 02/05/24 In Process Supplements (Nepro 22:00 Npo (Nothing By DIET 02/05/24 Transmitted Mouth) Diet Dinner D5w/Sod Chlo 0.9% PHA 02/05/24 Transmitted (... W/Sodium Bicarb 5 14:15 Date of Service: Feb 05, 2024 Billing Provider: XAVIER AIKEN MD Common Visit Codes: [id number] INP/OBS CARE(HIGH) XAVIER AIKEN MD Feb 05, 2024 14:16
[2024-02-05] MEDS: DOXYCYCLINE 100MG/250ML 250 ML IV ONE (15:44)
[2024-02-05] MEDS: Nepro With Carbsteady Vanilla 8oz Carton PO SCH (16:21)
--- NOTE | 2024-02-05 17:57 | DVHPN2 ---
Progress Note Date Seen: Feb 05, 2024 Medical Necessity Reason Pt with a Central, PICC or Fol: Yes The following are medically ne: [place] Catheter Subjective Review of Systems Pt in ANIKA. Pt alert and oriented x 1. Patient reports: No new complaints Objective vital signs Vital Sign Date Time Temp Pulse Resp B/P (MAP) Pulse Ox O2 Delivery O2 Flow Rate FiO2 02/05/24 17:15 93 20 124/53 (76) 99 02/05/24 16:00 98.0 98.0 02/05/24 14:00 Nasal Cannula* 2 28 Total Intake and Output 02/04/24 02/04/24 02/05/24 15:00 23:00 07:00 Intake Total 525 ml 695 ml 1016.25 ml Output Total 900 ml Balance 525 ml 695 ml 116.25 ml medications Current Medications Medications Dose Ordered Sig/Ariella Route Start Time Stop Time Status Last Admin Dose Admin Ceftriaxone Sodium 50 ml @ 100 mls/hr DAILY IV 02/03/24 10:00 02/05/24 10:21 100 MLS/HR Dextrose 50 ml UD PRN IV 02/02/24 19:15 Al Hydrox/Mg Hydrox/Simethicone 30 ml Q6HP PRN PO 02/02/24 19:15 Acetaminophen 650 mg Q6HP PRN PO 02/02/24 19:15 Ondansetron HCl 4 mg Q4HP PRN IV 02/02/24 19:15 Morphine Sulfate 2 mg Q4HPRN PRN IV 02/02/24 19:15 02/03/24 21:41 2 MG Albuterol 2.5 mg Q4HWA PRN NEB 02/02/24 19:30 02/05/24 09:32 2.5 MG Ipratropium [place] 0.5 mg Q4HWA PRN NEB 02/02/24 19:30 02/05/24 09:32 0.5 MG Norepinephrine Bitartrate 250 ml @ 3.75 mls/hr Q24H IV 02/02/24 23:00 02/05/24 05:07 18.75 MLS/HR Phenylephrine HCl 250 ml @ 30 mls/hr Q8H20M IV 02/03/24 01:45 02/04/24 01:45 48.75 MLS/HR Pantoprazole Sodium 40 mg DAILY IV 02/04/24 10:00 02/05/24 10:21 40 MG Diagnostic Test (Pha) 1 strip ACHS 02/03/24 17:00 02/05/24 15:31 1 STRIP Insulin Human Regular ACHS SC 02/03/24 17:00 Vasopressin 20 units/Sodium Chloride 100 ml @ 9 mls/hr Q11H7M IV 02/04/24 05:30 Enteral Nutritional Formula 240 ml BID PO 02/05/24 22:00 Sodium Bicarbonate 50 ml/ Dextrose/Sodium Chloride 1,050 ml @ 100 mls/hr [id number] IV 02/05/24 14:15 Doxycycline Hyclate 250 ml @ 125 mls/hr Q12H IV 02/05/24 14:15 02/05/24 14:15 125 MLS/HR Examination Gen:Appears stated age, no acute distress noted Pulm: CTA bilaterally CVS: RRR, no rub Abd: normoactive bowel sounds, nontender, soft Ext: No edema Neuro: Alert and oriented x 1 laboratory and microbiology Laboratory Tests 02/05/24 05:34 Test 02/05/24 05:34 Range/Units Serum Glucose 118 H 74-106 mg/dL Microbiology Date/Time Source Procedure Growth Status 02/02/24 16:00 Urine - [place] Urine Culture - Final Klebsiella pneumoniae Complete Labs and/or images reviewed: Labs reviewed by me Problem List/Assessment/Plan Problem List/Assessment/Plan IMP: 1) Hemodynamically mediated МАРИЯ/VMN in the setting of mild volume depletion also possibly component of obstructive uropathy that may be resolving with potential passage of nephrolith.- ongoing improving downtrending creat 2.67, GFR 18 2) CKD stage IIIA 3) diabetes- hgbA1c 6.2 4) hypertension- within target range 5) hypothyroidism CT chest/abd/pelvis IMPRESSION: 1. There is moderate right renal hydronephrosis. There is dilatation of the proximal right ureter. The distal right ureter does not appear dilated. There is no evidence of an obstructing ureteral calculus. Ureteral stricture is not excluded. Further evaluation with CT urogram is recommended. 2. Sigmoid diverticulosis. 3. There is no acute intrathoracic abnormality. REC: - Agree with IVF D5NS with 1 amp of bicarb - Strict I&Os - Serial chemistry panels - Continue avoidance of NSAIDs, IV contrast studies, GAIL or ARB during time course of МАРИЯ - Consider urology eval- for CT chest/abd/pelvis impression - Will continue to follow closely with you Case discussed with Dr. Pham Plan discussed with: Patient, Other (nurse) Dietary Evaluation Review Comments: 1. Continue current diet regime 2. Boomer pt's food preferences 3. Consider add nepro bid (840kcal, 38g pro) for increase PO intake Expected Outcomes/Goals: 1. Pt will consume >75% of estimated needs within 3-5 days PHILIP [place] CLERK Feb 05, 2024 17:57
--- NOTE | 2024-02-05 18:50 | DVHINCON2 ---
Date of service: Feb 05, [address] Dey Reason for Consultation Acute hypoxic respiratory failure, Shock, Wheezing History of Present Illness A 78-year-old woman with past medical history of hypertension, hyperlipidemia, left lower extremity DVT, hypothyroidism, DM, CKD and obesity who presented to the ED on 02/02/24 after a syncopal episode at home. Pt was apparently using the restroom and the next thing she remembers is waking up on the ground face down; positive loss of consciousness, does not remember if she hit her head. Family report pt had nausea, vomiting and diarrhea for a few days prior to admission. Also notes chronic cough x 2 years. Of note, pt has known history of chronic kidney disease, lost to followup with outpatient CKD Clinic. Pt also reported vague abdominal discomfort on presentation. Initial 12-lead electrocardiogram revealed sinus tachycardia without significant ST segment changes. Initial troponin level of 49ng/L with flat trend thereafter. Initial BNP level of 1080.3pg/mL. Patient was noted to have shortness of breath, placed on BiPAP - SOB thought likely secondary to fluid overload. She is on pressors for hemodynamic support. She is wheezing. Pulmonary consultation is called due to shock, hypoxia and septic shock. Review of Systems: 14-point review of systems negative unless otherwise noted above. Past Medical History: CAD, CHF, hypertension, hyperlipidemia, left lower extremity DVT, hypothyroidism, DM, chronic kidney disease, obesity. Past Surgical History: Cholecystectomy. Medications: Reviewed. Allergies: Penicillins. Family History: No family history of premature CAD. No family history of lung disorders. Social History: Nonsmoker. No alcohol or illicit drug use. Allergies: Coded Allergies: Penicillins (Verified Allergy, Unknown, 02/02/24) Home Meds Reported Medications Nitroglycerin (Nitrostat) 0.4 Mg Sub, 0.4 MG SL Q5MIN PRN for FOR CHEST PAIN, INJ DISSOLVE ONE TABLET UNDER THE TONGUE EVERY 5 MINUTES NEEDED FOR CHEST PAIN. DO NOT EXCEED A TOTAL OF 3 DOSES IN 15 MINUTES. IF NO RELIEF, CALL 911 02/03/24 Famotidine (Famotidine) 20 Mg Tab, 20 MG PO BID, MG 02/03/24 Apixaban Base (ELIQUIS) 2.5 Mg Tab, 2.5 MG PO BID, TAB 02/03/24 Lactulose (Lactulose) 10 Gm/15 Ml Rebecca, 15 ML PO DAILY PRN for FOR CONSTIPATION, ML 02/03/24 Semaglutide (Ozempic) 4 Mg/3 Ml Inj, 1 MG SC QWEEKLY, INJ 02/03/24 Cyanocobalamin (Vitamin B-12 Cr) 1,000 Mcg Tab, 1000 MCG PO DAILY, TAB 02/03/24 Levothyroxine Sodium (Synthroid) 75 Mcg Tab, 75 MCG PO QAM, TAB 02/03/24 Lisinopril (Lisinopril) 2.5 Mg Tab, 2.5 MG PO DAILY, MG 02/03/24 Cholecalciferol (Gnp Vitamin D) 1,000 Unit Tab, 1000 UNIT PO DAILY, TAB 02/03/24 Atorvastatin Calcium (ATORVASTATIN CALCIUM) 10 Mg Tab, 10 MG PO HS, TAB 02/03/24 Current Medications Current Medications Medications (Trade) Dose Ordered Sig/Ariella Route PRN Reason Start Time Stop Time Status Last Admin Enteral Nutritional Formula (Nepro With Carbsteady) 240 ml BID PO 02/05/24 22:00 Sodium Bicarbonate 50 ml/ Dextrose/Sodium Chloride 1,050 ml @ 100 mls/hr [id number] IV 02/05/24 14:15 02/05/24 14:15 Doxycycline Hyclate 250 ml @ 125 mls/hr Q12H IV 02/05/24 14:15 02/05/24 14:15 Albuterol (Ventolin Medneb) 2.5 mg Q4HWA [facility] 02/05/24 22:00 UNV Ipratropium [place] (Atrovent Medneb) 0.5 mg Q4HWA [facility] 02/05/24 22:00 UNV Acetylcysteine (Mucomyst Inhalation 20%) 200 mg Q8HR [facility] 02/05/24 22:00 UNV Vital Signs Vital Signs Date Time Temp Pulse Resp B/P (MAP) Pulse Ox O2 Delivery O2 Flow Rate FiO2 02/05/24 18:00 88 17 115/56 (75) 98 02/05/24 16:00 98.0 98.0 02/05/24 14:00 Nasal Cannula* 2 28 Physical Exam Gen.: Patient lying in bed in no apparent distress. On supplemental oxygen. Head: Normocephalic, atraumatic. Eyes: EOMI/PERRLA. Ears: Normal hearing. Normal anatomy. Neck/trachea: Trachea midline, supple. Nose: Normal external anatomy. Mouth: Moist mucous membranes. Chest: Decreased air entry bilaterally. Bilateral wheezing. No rhonchi. Cardiovascular: Positive S1, positive S2. Regular rate and rhythm. Abdomen: Positive bowel sounds in all 4 quadrants. Soft, non-tender, non- distended. : Deferred. Rectal: Deferred. Skin: Warm, dry. Intact. Extremities: 2+ radial pulses bilaterally. No lower extremity edema. Neuro: Awake, alert, oriented x1. Altered. No gross motor or sensory deficits. Cranial nerves II through XII intact. Gait not assessed. Labs/Diagnostic Data Labs Test 02/05/24 16:15 02/05/24 05:34 02/04/24 07:06 02/04/24 04:43 Range/Units POC Glucose 130 H 70-106 mg/dl White Blood Count 16.4 H 4.4-10.8 10^3/uL Red Blood Count 3.32 L 4.0-5.20 10^6/uL Hemoglobin 10.3 #L 12.2-16.2 g/dL Hematocrit 30.9 #L 36.0-46.0 % Mean Corpuscular Volume 93.2 80.0-100.0 fL Mean Corpuscular Hemoglobin 30.9 28.0-32.0 pg Mean Corpuscular Hemoglobin Concent 33.2 32.0-36.0 g/dL Red Cell Distribution Width 18.0 H 11.8-14.3 % Platelet Count 44 L 140-450 10^3/uL Mean Platelet Volume 8.6 6.9-10.8 fL Neutrophils (%) (Auto) 37.0-80.0 % Lymphocytes (%) (Auto) 10.0-50.0 % Monocytes (%) (Auto) 0.0-12.0 % Basophils (%) (Auto) 0.0-2.0 % Neutrophils # (Auto) 1.6-8.6 10 ^3/uL Lymphocytes # (Auto) 0.4-5.4 10 ^3/uL Monocytes # (Auto) 0-1.3 10 ^3/uL Differential Total Cells Counted 100.0 100 Neutrophils % (Manual) 89 H 37.0-80.0 Band Neutrophils % (Manual) 1 Lymphocytes % (Manual) 9 L 10.0-50.0 Monocytes % (Manual) 1 0-12 Eosinophils % (Manual) 0 0-7 Basophils % (Manual) 0 0.0-2.0 Metamyelocytes % (manual) 0 Myelocytes % (Manual) 0 Promyelocytes % (Manual) 0 Blast Cells % (Manual) 0 Reactive Lymphocytes 0 Platelet Estimate Decreased Grant Cells Few Sodium Level 142 136-145 mmol/L Potassium Level 3.6 3.5-5.1 mmol/L Chloride Level 112 H 98-107 mmol/L Carbon Dioxide Level 13 L 20-31 mmol/L Anion Gap 17 H 5-15 Blood Urea Nitrogen 61 H 9-23 mg/dL Creatinine 2.67 H 0.550-1.02 mg/dL Glomerular Filtration Rate Calc 18 >90 mL/min BUN/Creatinine Ratio 22.8 H 10.0-20.0 Serum Glucose 118 H 74-106 mg/dL Calcium Level 8.6 L 8.7-10.4 mg/dL Magnesium Level 2.1 1.6-2.6 mg/dL Total Bilirubin 0.8 0.2-1.0 mg/dL Aspartate Amino Transferase (AST) 26 13-40 U/L Alanine Aminotransferase (ALT) 39 7-40 U/L Alkaline Phosphatase 187 H 46-116 U/L Total Protein 5.6 L 5.7-8.2 g/dL Albumin 3.1 L 3.2-4.8 g/dL Triglycerides Level 241 H < 150 mg/dL Cholesterol Level 78 < 200 mg/dL LDL Cholesterol 15 < 100 mg/dL HDL Cholesterol < 5 L 40-59 mg/dL Thyroid Stimulating Hormone (TSH) 0.77 0.55-4.78 uIU/mL Blood Gas Specimen Type Arterial Blood Gas Sample Site Right radial Blood Gas Patient Temperature 37.0 Arterial Blood Date Drawn [id number] Arterial Blood pH 7.206 *L 7.350-7.450 Arterial Blood Partial Pressure CO2 27.3 L 32.0-45.0 mmHg Arterial Blood Partial Pressure O2 101.0 83.0-108.0 mmHg Arterial Blood HCO3 10.6 L 21.0-28.0 mmol/L Arterial Blood Oxygen Saturation 97.3 94.0-98.0 % Arterial Blood Base Excess -15.8 L -2.0-3.0 mmol/L Arterial Blood Oxyhemoglobin 96.3 94.0-98.0 % Arterial Blood Carboxyhemoglobin 0.4 L 0.5-1.5 % Arterial Blood Methemoglobin 0.6 0.0-1.5 % Gonzalo Test Yes Blood Gas Total Hemoglobin 12.30 12.0-16.0 g/dL Blood Gas Liter Flow 4.00 Blood Gas Modality Nasal cannula FiO2 % 36.0 Blood Gas Critical Value Read Back Yes Blood Gas Notified Whom Gerson banda jonatan Blood Gas Notified Time [id number] Blood Gas Notified By Kirsten law rt Ovalocytes Few Prothrombin Time 14.5 H 9.3-11.8 sec Prothrombin Time INR 1.40 H 0.9-1.15 Activated Partial Thromboplast Time 28.0 24.5-34.5 SEC Hemoglobin A1c 6.2 H <5.7 % A1C Test 02/03/24 14:30 02/03/24 04:20 02/02/24 20:25 02/02/24 16:20 Range/Units Influenza Type A Antigen Negative Negative Influenza Type B Antigen Negative Negative SARS-CoV-2 Antigen (Rapid) Negative NEGATIVE Eosinophils (%) (Auto) 0.0-7.0 % Blood Gas EPAP 5 Blood Gas IPAP 12 Lactic Acid Level 2.2 *H 0.4-2.0 mmol/L Troponin I High Sensitivity 39 *H </=34 ng/L Test 02/02/24 16:00 02/02/24 13:38 Range/Units Urine Color Yellow Yellow Urine Clarity Turbid H Clear Urine pH 5.5 5.0-9.0 Urine Specific [place] 1.013 1.001-1.035 Urine Protein 1+ H Negative Urine Ketones Negative Negative Urine Blood 2+ H Negative /uL Urine Nitrite Negative Negative Urine Bilirubin Negative Negative Urine Urobilinogen Normal Negative mg/dL Urine Leukocyte Esterase 1+ Negative /uL Urine RBC 2 0 - 4 /hpf Urine WBC 24 0 - 5 /hpf Urine Squamous Epithelial Cells Few <5 /hpf Urine Amorphous Crystals Few None Seen /hpf Urine Bacteria Many H None Seen /hpf Urine Glucose Normal Normal mg/dL B-Type Natriuretic Peptide 1080.30 0-100 pg/mL Microbiology Date/Time Source Procedure Growth Status 02/02/24 16:00 Urine - [place] Urine Culture - Final Klebsiella pneumoniae Complete Assessment Impression: Acute hypoxic respiratory failure Acute Exacerbation COPD Shock, likely septic due to UTI CHF exacerbation Metabolic acidosis Acute metabolic encephalopathy Hydronephrosis Wheezing H/o DVT LLE Plan: Supplemental oxygen 2 LPM NC Titrate to keep O2 sats above 92%. Taper O2 as tolerated. On pressors for hemodynamic support Levophed 4 mcg/min, improving pressors requirements. Titrate to keep mean arterial pressure greater than 65 mmHg. Continue bronchodilators. Continue antibiotics Incentive spirometry Bicarb drip. HOB elevation Aspiration precautions Monitor renal function. Monitor electrolytes. Supplement as necessary. Monitor ins and outs. DVT prophylaxis. Prognosis: Poor given patient's multiple co-morbidities. Condition: Critical Rest of plan per hospitalist and other consultants. A total of 35 minutes of critical care time was spent reviewing the patient record, examining the patient, making a diagnostic and therapeutic plan, discussing this plan with the medical personnel, following up on diagnostic medardo dies and following the patient for clinical stability excluding any and all procedures. At least 50% of this time was spent in direct, [id number] contact. Thank you Dr. Isabel Dey MD, for allowing me to participate in this patient's care. Further recommendations will depend on the patient's clinical course. Please do not hesitate to contact me if you have any questions or concerns. This medical document was created using an electronic medical record system with [employer] dictation system. Although these documentations are being carefully reviewed, there may still be some phonetic and typographical changes. The errors are purely typographical, due to imperfection on the software program, and do not reflect any compromise in the patient's medical care. Plan discussed with: Daughter, Other (MAYCOL Kirk, MD Dey) IRIS LOREDO MD Feb 05, 2024 18:50
--- NOTE | 2024-02-05 21:15 | DVHPN2 ---
Progress Note - Dictate Date Seen: Feb 05, 2024 Medical Necessity Reason Pt with a Central, PICC or Fol: Yes Subjective Patient was seen and evaluated in follow up in the ICU. Patient complains of lower abdominal pain and has a productive cough. Patient is currently on pressors. Family at bedside. Echocardiogram shows an EF of 65%. WBC 16.4, BUN 61, [employer] 2.67. vital signs Vital Sign Date Time Temp Pulse Resp B/P (MAP) Pulse Ox O2 Delivery O2 Flow Rate FiO2 02/05/24 15:45 88 14 109/40 (63) 97 02/05/24 15:20 97.9 97.9 02/05/24 14:00 Nasal Cannula* 2 28 Total Intake and Output 02/04/24 02/04/24 02/05/24 15:00 23:00 07:00 Intake Total 525 ml 695 ml 1016.25 ml Output Total 900 ml Balance 525 ml 695 ml 116.25 ml medications Current Medications Medications Dose Ordered Sig/Ariella Route Start Time Stop Time Status Last Admin Dose Admin Ceftriaxone Sodium 50 ml @ 100 mls/hr DAILY IV 02/03/24 10:00 02/05/24 10:21 100 MLS/HR Dextrose 50 ml UD PRN IV 02/02/24 19:15 Al Hydrox/Mg Hydrox/Simethicone 30 ml Q6HP PRN PO 02/02/24 19:15 Acetaminophen 650 mg Q6HP PRN PO 02/02/24 19:15 Ondansetron HCl 4 mg Q4HP PRN IV 02/02/24 19:15 Morphine Sulfate 2 mg Q4HPRN PRN IV 02/02/24 19:15 02/03/24 21:41 2 MG Albuterol 2.5 mg Q4HWA PRN NEB 02/02/24 19:30 02/05/24 09:32 2.5 MG Ipratropium [place] 0.5 mg Q4HWA PRN NEB 02/02/24 19:30 02/05/24 09:32 0.5 MG Norepinephrine Bitartrate 250 ml @ 3.75 mls/hr Q24H IV 02/02/24 23:00 02/05/24 05:07 18.75 MLS/HR Phenylephrine HCl 250 ml @ 30 mls/hr Q8H20M IV 02/03/24 01:45 02/04/24 01:45 48.75 MLS/HR Pantoprazole Sodium 40 mg DAILY IV 02/04/24 10:00 02/05/24 10:21 40 MG Diagnostic Test (Pha) 1 strip ACHS 02/03/24 17:00 02/05/24 15:31 1 STRIP Insulin Human Regular ACHS SC 02/03/24 17:00 Vasopressin 20 units/Sodium Chloride 100 ml @ 9 mls/hr Q11H7M IV 02/04/24 05:30 Enteral Nutritional Formula 240 ml BID PO 02/05/24 22:00 Sodium Bicarbonate 50 ml/ Dextrose/Sodium Chloride 1,050 ml @ 100 mls/hr [id number] IV 02/05/24 14:15 Doxycycline Hyclate 250 ml @ 125 mls/hr Q12H IV 02/05/24 14:15 02/05/24 14:15 125 MLS/HR objective GENERAL: Awake, alert, oriented. Morbidly obese. LUNGS: Clear. CARDIOVASCULAR: Heart sounds are good. ABDOMEN: Soft. laboratory and microbiology Laboratory Tests 02/05/24 05:34 Test 02/05/24 05:34 Range/Units Serum Glucose 118 H 74-106 mg/dL Problem List Syncope, rule out cardiac etiology. NTEMI type II secondary to urosepsis. History of hypertension now with hypotension. Hyperlipidemia. Thrombocytopenia. History of left lower extremity DV. Type 2 diabetes mellitus. Hypothyroidism. Chronic kidney disease. Obesity. Assessment/Plan Continued all current supportive medical care. IV antibiotics as ordered. GI prophylactics. Vasopressors for hemodynamic support. Morphine for pain management. Additional plan as per the hospital course. Critical care time of 45 minutes provided to include time spent evaluation of the patient at bedside, when appropriate patient/family education of diagnosis, treatment plan, review of pertinent medical information and discussion of care with specialty providers and PCP. Dietary Evaluation Review Comments: 1. Continue current diet regime 2. [place] pt's food preferences 3. Consider add nepro bid (840kcal, 38g pro) for increase PO intake Expected Outcomes/Goals: 1. Pt will consume >75% of estimated needs within 3-5 days Plan discussed with: BIBIANA Fatima MD Feb 05, 2024 16:51
[2024-02-05] MEDS: BUDESONIDE (INHALATION) 0.5 MG/2 ML NEB NEB SCH (21:54)
[2024-02-05] MEDS ORDERED: LEVALBUTEROL HCL 1.25 MG/3 ML NEB NEB SCH (22:00)
[2024-02-05] MEDS ORDERED: ALBUTEROL SULF 2.5 MG/0.5ML(0.5%) NEB SOLN NEB SCH (22:00)
[2024-02-05] MEDS ORDERED: IPRATROPIUM BROM 0.5 MG/2.5ML INH SOL NEB SCH (22:00)
[2024-02-06] VITALS (68 sets, daily range): BP systolic 84–132; BP diastolic 34–72; PULSE 80–105; RESP 11–50; TEMP 97.8–99.6; O2SAT 92–100
[2024-02-06] MEDS: IPRATROPIUM BROM 0.5 MG/2.5ML INH SOL NEB SCH
[2024-02-06] MEDS ORDERED: LEVALBUTEROL HCL 1.25 MG/3 ML NEB NEB SCH
[2024-02-06] MEDS: LEVALBUTEROL HCL 1.25 MG/3 ML NEB NEB SCH
[2024-02-06] MEDS: ACETYLCYSTEINE 20%(200MG/ML) SOL 4ML NEB SCH
[2024-02-06 06:04] LABS: Basophils # (auto) 0 10 ^3/uL (0-0.2); Basophils % (auto) 0.1 % (0.0-2.0); Hemoglobin 9.2 g/dL (12.2-16.2); Mean Corpuscular Volume 91.6 fL (80.0-100.0); Monocytes # (auto) 0.5 10 ^3/uL (0-1.3)
[2024-02-06 06:07] LABS: Eosinophils # (auto) 0 10 ^3/uL (0-0.8); Eosinophils % (auto) 0.4 % (0.0-7.0); Hematocrit 26.9 % (36.0-46.0); Lymphocytes # (auto) 0.5 10 ^3/uL (0.4-5.4); Lymphocytes % (auto) 4.8 % (10.0-50.0); Mean Corpuscular Hemoglobin 31.5 pg (28.0-32.0); Mean Corpuscular Hgb Conc. 34.3 g/dL (32.0-36.0); Monocytes % (auto) 5.3 % (0.0-12.0); Neutrophils # (auto) 8.5 10 ^3/uL (1.6-8.6); Neutrophils % (auto) 89.4 % (37.0-80.0); Platelet Count (auto) 33 10^3/uL (140-450); Red Blood Cells 2.94 10^6/uL (4.0-5.20); Red Cell Distribution Width 17.9 % (11.8-14.3); White Blood Cell 9.5 10^3/uL (4.4-10.8)
[2024-02-06 06:19] LABS: Chloride 115 mmol/L (98-107); Sodium 146 mmol/L (136-145)
[2024-02-06 06:20] LABS: Anion Gap 11 (5-15); Calcium 8.4 mg/dL (8.7-10.4); Carbon Dioxide 20 mmol/L (20-31)
[2024-02-06 06:25] LABS: BUN/Creatinine Ratio 27.6 (10.0-20.0); Glucose 199 mg/dL (74-106)
[2024-02-06 06:26] LABS: Magnesium 1.9 mg/dL (1.6-2.6)
[2024-02-06 06:38] LABS: Blood Urea Nitrogen 50 mg/dL (9-23)
[2024-02-06 08:26] LABS: Ovalocytes FEW; Platelet Estimate Decreased
--- NOTE | 2024-02-06 10:37 | DVHPN2 ---
Progress Note Date Seen: Feb 06, 2024 Medical Necessity Reason Pt with a Central, PICC or Fol: Yes The following are medically ne: [place] Catheter Subjective Other Systems: Patient seen and examined by myself on follow-up today Objective vital signs Vital Sign Date Time Temp Pulse Resp B/P (MAP) Pulse Ox O2 Delivery O2 Flow Rate FiO2 02/06/24 09:00 97 23 132/53 (79) 92 02/06/24 08:00 99.3 99.3 02/06/24 08:00 Nasal Cannula* 1 24 Total Intake and Output 02/05/24 02/05/24 02/06/24 15:00 23:00 07:00 Intake Total 551.25 ml 1010.0 ml 1216.25 ml Output Total 900 ml 1250 ml Balance 551.25 ml 110.0 ml -33.75 ml medications Current Medications Medications Dose Ordered Sig/Ariella Route Start Time Stop Time Status Last Admin Dose Admin Ceftriaxone Sodium 50 ml @ 100 mls/hr DAILY IV 02/03/24 10:00 02/05/24 10:21 100 MLS/HR Dextrose 50 ml UD PRN IV 02/02/24 19:15 Al Hydrox/Mg Hydrox/Simethicone 30 ml Q6HP PRN PO 02/02/24 19:15 Acetaminophen 650 mg Q6HP PRN PO 02/02/24 19:15 Ondansetron HCl 4 mg Q4HP PRN IV 02/02/24 19:15 Morphine Sulfate 2 mg Q4HPRN PRN IV 02/02/24 19:15 02/03/24 21:41 2 MG Norepinephrine Bitartrate 250 ml @ 3.75 mls/hr Q24H IV 02/02/24 23:00 02/06/24 04:37 3.75 MLS/HR Phenylephrine HCl 250 ml @ 30 mls/hr Q8H20M IV 02/03/24 01:45 02/04/24 01:45 48.75 MLS/HR Pantoprazole Sodium 40 mg DAILY IV 02/04/24 10:00 02/05/24 10:21 40 MG Diagnostic Test (Pha) 1 strip ACHS 02/03/24 17:00 02/06/24 05:52 1 STRIP Insulin Human Regular ACHS SC 02/03/24 17:00 02/06/24 05:57 3 UNITS Vasopressin 20 units/Sodium Chloride 100 ml @ 9 mls/hr Q11H7M IV 02/04/24 05:30 Enteral Nutritional Formula 240 ml BID PO 02/05/24 22:00 Sodium Bicarbonate 50 ml/ Dextrose/Sodium Chloride 1,050 ml @ 100 mls/hr [id number] IV 02/05/24 14:15 02/06/24 04:33 100 MLS/HR Doxycycline Hyclate 250 ml @ 125 mls/hr Q12H IV 02/05/24 14:15 02/06/24 02:23 125 MLS/HR Acetylcysteine 200 mg Q8HR NEB 02/05/24 22:00 02/06/24 06:15 200 MG Budesonide 0.5 mg BID NEB 02/05/24 22:00 02/06/24 06:15 0.5 MG Ipratropium [place] 0.5 mg Q6HR NEB 02/06/24 00:00 02/06/24 06:15 0.5 MG Levalbuterol HCl 1.25 mg Q6HR NEB 02/06/24 00:00 02/06/24 06:15 1.25 MG Examination: LUNGS:Normal, CVS:Normal, MSK:Normal laboratory and microbiology Laboratory Tests 02/06/24 05:08 02/06/24 05:06 Test 02/06/24 05:06 Range/Units Serum Glucose 199 H 74-106 mg/dL Microbiology Date/Time Source Procedure Growth Status 02/02/24 16:00 Urine - [place] Urine Culture - Final Klebsiella pneumoniae Complete Problem List/Assessment/Plan Problem List/Assessment/Plan Hemodynamically mediated МАРИЯ/VMN in the setting of mild volume depletion also possibly component of obstructive uropathy CKD stage IIIA Diabetes mellitus type 2 Hypertension Hypothyroidism Metabolic acidosis Urinary tract infections Recommendations Kidney function is improving Increased urine output Strict I&Os IVF with sodium bicarb Check kidney ultrasound Check urine electrolytes and urine protein excretion We will continue to follow Plan discussed with: Patient My Orders My Orders Orders - LINA JACOSBEN MD Procedure Category Date Status Time D5w/Sod Chlo 0.9% PHA 02/06/24 Transmitted (... W/Sodium Bicarb 5 10:45 Kidney US 02/06/24 Transmitted 10:32 Vitamin D, 25-Hydroxy LAB 02/06/24 Transmitted 10:32 Urine Sodium LAB 02/06/24 Transmitted 10:32 Urine LAB 02/06/24 Transmitted Protein/Creatinine Urine Creatinine LAB 02/06/24 Transmitted 10:32 Urinalysis LAB 02/06/24 Transmitted 10:32 Phosphorus LAB 02/06/24 Transmitted 10:32 Magnesium LAB 02/06/24 Transmitted 10:32 Parathyroid Hormone LAB 02/06/24 Transmitted Intact 10:32 Dietary Evaluation Review Comments: 1. Continue current diet regime 2. [place] pt's food preferences 3. Consider add nepro bid (840kcal, 38g pro) for increase PO intake Expected Outcomes/Goals: 1. Pt will consume >75% of estimated needs within 3-5 days LINA JACOBSEN MD Feb 06, 2024 10:36
[2024-02-06] MEDS: SOD CHLO IV SCH (10:45)
[2024-02-06] MEDS: SODIUM BICARB IV SCH (10:45)
[2024-02-06] MEDS: D5 IV SCH (10:45)
--- NOTE | 2024-02-06 11:01 | DVHPN2 ---
Subjective Confused She is on still on Levophed drip She is on bicarbonate drip The CO2 is still 13 Creatinine is improved Changes from previous H/P or p: Changes Eyes: No Pain, No Vision change, No Conjunctivae inflammation, No Eyelid inflammation, No Other, No Redness ENT: No Ear pain, No Ear discharge, No Nose pain, No Nose discharge, No Nose congestion, No Mouth pain, No Mouth swelling, No Throat pain, No Throat swelling, No Other Cardiovascular: Chest Pain, Palpitations Respiratory: Cough, Shortness of breath Gastrointestinal: No Nausea, No Vomiting, No Abdominal Pain, No Diarrhea, No Constipation, No Melena, No Hematochezia, No Other Genitourinary: No Dysuria, No Frequency, No Incontinence, No Hematuria, No Retention, No Other Musculoskeletal: No other, No neck pain, No shoulder pain, No arm pain, No back pain, No hand pain, No leg pain, No foot pain Skin: No Rash, No Lesions, No Jaundice, No Bruising, No Other Objective Vitals Vital Signs Date Time Temp Pulse Resp B/P (MAP) Pulse Ox O2 Delivery O2 Flow Rate FiO2 02/06/24 09:00 97 23 132/53 (79) 92 02/06/24 08:00 99.3 99.3 02/06/24 08:00 Nasal Cannula* 1 24 Intake/Output Intake and Output 02/06/24 07:00 Intake Total 2777.50 ml Output Total 2150 ml Balance 627.50 ml Intake Oral 0 ml IV Total 2777.50 ml Output Urine Total 2150 ml General Appearance: Alert, Other (somenolent) Lungs: Clear to auscultation, Normal air movement Cardiovascular: Regular rate, Normal S1, Normal S2 Abdomen: Normal bowel sounds, Soft, No tenderness Extremities: No edema Medications Current Medications Medications Dose Ordered Sig/Ariella Route Start Time Stop Time Status Last Admin Dose Admin Ceftriaxone Sodium 50 ml @ 100 mls/hr DAILY IV 02/03/24 10:00 02/05/24 10:21 100 MLS/HR Dextrose 50 ml UD PRN IV 02/02/24 19:15 Al Hydrox/Mg Hydrox/Simethicone 30 ml Q6HP PRN PO 02/02/24 19:15 Acetaminophen 650 mg Q6HP PRN PO 02/02/24 19:15 Ondansetron HCl 4 mg Q4HP PRN IV 02/02/24 19:15 Morphine Sulfate 2 mg Q4HPRN PRN IV 02/02/24 19:15 02/03/24 21:41 2 MG Norepinephrine Bitartrate 250 ml @ 3.75 mls/hr Q24H IV 02/02/24 23:00 02/06/24 04:37 3.75 MLS/HR Phenylephrine HCl 250 ml @ 30 mls/hr Q8H20M IV 02/03/24 01:45 02/04/24 01:45 48.75 MLS/HR Pantoprazole Sodium 40 mg DAILY IV 02/04/24 10:00 02/05/24 10:21 40 MG Diagnostic Test (Pha) 1 strip ACHS 02/03/24 17:00 02/06/24 05:52 1 STRIP Insulin Human Regular ACHS SC 02/03/24 17:00 02/06/24 05:57 3 UNITS Vasopressin 20 units/Sodium Chloride 100 ml @ 9 mls/hr Q11H7M IV 02/04/24 05:30 Enteral Nutritional Formula 240 ml BID PO 02/05/24 22:00 Doxycycline Hyclate 250 ml @ 125 mls/hr Q12H IV 02/05/24 14:15 02/06/24 02:23 125 MLS/HR Acetylcysteine 200 mg Q8HR NEB 02/05/24 22:00 02/06/24 06:15 200 MG Budesonide 0.5 mg BID NEB 02/05/24 22:00 02/06/24 06:15 0.5 MG Ipratropium [place] 0.5 mg Q6HR NEB 02/06/24 00:00 02/06/24 06:15 0.5 MG Levalbuterol HCl 1.25 mg Q6HR NEB 02/06/24 00:00 02/06/24 06:15 1.25 MG Sodium Bicarbonate 100 ml/Dextrose/ Sodium Chloride 1,100 ml @ 100 mls/hr Q11H IV 02/06/24 10:45 Laboratory Results Laboratory Tests 02/06/24 05:06 02/06/24 05:08 Chemistry Test 02/06/24 05:06 02/06/24 10:38 Calcium Level 8.4 mg/dL (8.7-10.4) L Magnesium Level 1.9 mg/dL (1.6-2.6) Pending Phosphorus Level Pending Urinalysis Test 02/02/24 16:00 Urine Color Yellow (Yellow) Urine Clarity Turbid (Clear) H Urine pH 5.5 (5.0-9.0) Urine Specific [place] 1.013 (1.001-1.035) Urine Protein 1+ (Negative) H Urine Ketones Negative (Negative) Urine Blood 2+ /uL (Negative) H Urine Nitrite Negative (Negative) Urine Bilirubin Negative (Negative) Urine Urobilinogen Normal mg/dL (Negative) Urine Leukocyte Esterase 1+ /uL (Negative) Urine RBC 2 /hpf (0 - 4) Urine WBC 24 /hpf (0 - 5) Urine Squamous Epithelial Cells Few /hpf (<5) Urine Amorphous Crystals Few /hpf (None Seen) Urine Bacteria Many /hpf (None Seen) H Urine Glucose Normal mg/dL (Normal) Microbiology Microbiology Date/Time Source Procedure Growth Status 02/02/24 16:00 Urine - [place] Urine Culture - Final Klebsiella pneumoniae Complete Assessment/Plan Assessment/Plan МАРИЯ Intractable N/V/D UTI h/o DVT LLE Hypothyroidism DM2 Dyslipidemia PLAN: IV fluids Vasopressors IV antibiotics: Rocephin and Flagyl Protonix Discussed with daughter over the phone DNR DC Lasix DC Metoprolol DC Midodrine 02/04/2024: Continue vasopressors as needed Continue Rocephin IV Continue IV fluids Add sodium bicarbonate drip to correct the metabolic acidosis Nephrology consultation Avoid NSAIDs and contrast and Shlomo or arbs DNR Discussed with the family at the bedside 02/05/2024: Continue Levophed drip Continue IV Rocephin Continue IV fluids with D5 NS with sodium bicarbonate Nephrology consult DNR Add doxycycline IV 02/06/24: More alert Replace K+ and Mg Check BLE venous doppler Continue IV fluids with sodium bicarbonate Levophed drip as needed IV Rocephin and doxycycline DNR Kidney ultrasound UTI with Klebsiella pneumoniae Plan discussed with: Patient, Daughter, Other My Orders Orders - XAVIER AIKEN MD Procedure Category Date Status Time Nutritional PHA 02/05/24 In Process Supplements (Nepro 22:00 Npo (Nothing By DIET 02/05/24 Transmitted Mouth) Diet Dinner Doxycycline PHA 02/05/24 In Process 100mg/250ml 14:15 Mrsa Screen CA 02/05/24 In Process 15:43 Potassium Chl PHA 02/06/24 In Process 20meq/100ml 10:15 Magnesium Sulfate PHA 02/06/24 In Process 1gm/100ml 10:15 Parathyroid Hormone LAB 02/06/24 In Process Intact 10:36 Date of Service: Feb 06, 2024 Billing Provider: XAVIER AIKEN MD Common Visit Codes: NOT BILLABLE XAVIER AIKEN MD Feb 06, 2024 11:01
--- NOTE | 2024-02-06 11:26 | DVH ---
INDICATION: cori TECHNIQUE: Multiple real-time sonographic images of the kidneys and bladder were obtained. COMPARISON: CT chest abdomen pelvis 02/02/2024 FINDINGS: RIGHT kidney measures 12.2 cm in length. Right renal cyst measuring up to 2.2 cm. Moderate right-sided hydronephrosis. LEFT kidney measures 11.3 cm in length. Left renal cyst measuring up to 1.0 cm. No hydronephrosis. No large intraluminal masses are seen in the bladder. Lehman catheter in place. IMPRESSION: 1. Moderate right-sided hydronephrosis. 2. Bilateral simple appearing renal cysts. 3. Lehman catheter in place. HS:Y
[2024-02-06] MEDS: POTASSIUM CHL 20MEQ/100ML 100 ML IV ONE ×2 (11:39→20:01)
[2024-02-06] MEDS: MAGNESIUM SULFATE 1GM/100ML 100 ML IV ONE (11:39)
--- NOTE | 2024-02-06 11:47 | DVH ---
Bilateral lower extremity venous duplex Clinical History: edema Comparison: None Technique: Duplex Doppler evaluation of the deep venous systems of both lower extremities from the common femora l veins to the popliteal veins including color Doppler and spectral/pulsed waveform analysis was perf ormed. Findings: RIGHT SIDE: The common femoral vein demonstrates appropriate compressibility and waveform variability. There is compressibility/patency of the great saphenous vein at the proximal thigh. The femoral vein demonstrates appropriate compressibility and waveform variability. The deep femoral vein demonstrates appropriate compressibility and waveform variability. The popliteal vein demonstrates appropriate compressibility and waveform variability. There is normal compressibility at the tibioperoneal trunk. LEFT SIDE: The common femoral vein demonstrates appropriate compressibility and waveform variability. There is compressibility/patency of the great saphenous vein at the proximal thigh. The femoral vein demonstrates appropriate compressibility and waveform variability. The deep femoral vein demonstrates appropriate compressibility and waveform variability. The popliteal vein demonstrates appropriate compressibility and waveform variability. There is normal compressibility at the tibioperoneal trunk. Left popliteal fossa probable salas cyst measuring up to 4.5 cm. Impression: 1. No right or left femoropopliteal venous thrombosis. HS:Y
[2024-02-06 12:04] LABS: Magnesium 1.8 mg/dL (1.6-2.6)
[2024-02-06 12:06] LABS: Phosphorus 1.6 mg/dL (2.4-5.1)
[2024-02-06 16:04] LABS: Potassium 3.2 mmol/L (3.5-5.1)
[2024-02-06 16:11] LABS: Magnesium 1.9 mg/dL (1.6-2.6)
--- NOTE | 2024-02-06 18:34 | DVHPN2 ---
Progress Note - Dictate Date Seen: Feb 06, 2024 Medical Necessity Reason Pt with a Central, PICC or Fol: Yes The following are medically ne: Lehman Catheter Subjective Patient was seen and evaluated in follow up in the ICU. Patient is complaining of lower abdominal discomfort. Patient has increased urine output. Renal US shows moderated right-sided hydronephrosis. Bilateral simple appearing renal cysts. Bilateral lower extremity venous duplex is negative for DVT. K 3.2, Phos 1.6. Electrolytes were replaced. vital signs Vital Sign Date Time Temp Pulse Resp B/P (MAP) Pulse Ox O2 Delivery O2 Flow Rate FiO2 02/06/24 18:00 87 16 96/43 (60) 97 02/06/24 16:30 99.6 99.6 02/06/24 12:05 Nasal Cannula* 1 24 Total Intake and Output 02/05/24 02/05/24 02/06/24 15:00 23:00 07:00 Intake Total 551.25 ml 1010.0 ml 1316.25 ml Output Total 900 ml 1250 ml Balance 551.25 ml 110.0 ml 66.25 ml medications Current Medications Medications Dose Ordered Sig/Ariella Route Start Time Stop Time Status Last Admin Dose Admin Ceftriaxone Sodium 50 ml @ 100 mls/hr DAILY IV 02/03/24 10:00 02/06/24 11:38 100 MLS/HR Dextrose 50 ml UD PRN IV 02/02/24 19:15 Al Hydrox/Mg Hydrox/Simethicone 30 ml Q6HP PRN PO 02/02/24 19:15 Acetaminophen 650 mg Q6HP PRN PO 02/02/24 19:15 Ondansetron HCl 4 mg Q4HP PRN IV 02/02/24 19:15 Morphine Sulfate 2 mg Q4HPRN PRN IV 02/02/24 19:15 02/06/24 11:42 2 MG Norepinephrine Bitartrate 250 ml @ 3.75 mls/hr Q24H IV 02/02/24 23:00 02/06/24 04:37 3.75 MLS/HR Phenylephrine HCl 250 ml @ 30 mls/hr Q8H20M IV 02/03/24 01:45 02/04/24 01:45 48.75 MLS/HR Pantoprazole Sodium 40 mg DAILY IV 02/04/24 10:00 02/06/24 11:38 40 MG Diagnostic Test (Pha) 1 strip ACHS 02/03/24 17:00 02/06/24 17:00 1 STRIP Insulin Human Regular ACHS SC 02/03/24 17:00 02/06/24 17:44 4 UNITS Vasopressin 20 units/Sodium Chloride 100 ml @ 9 mls/hr Q11H7M IV 02/04/24 05:30 Enteral Nutritional Formula 240 ml BID PO 02/05/24 22:00 Doxycycline Hyclate 250 ml @ 125 mls/hr Q12H IV 02/05/24 14:15 02/06/24 14:35 125 MLS/HR Acetylcysteine 200 mg Q8HR NEB 02/05/24 22:00 02/06/24 12:05 200 MG Budesonide 0.5 mg BID NEB 02/05/24 22:00 02/06/24 06:15 0.5 MG Ipratropium [place] 0.5 mg Q6HR NEB 02/06/24 00:00 02/06/24 12:05 0.5 MG Levalbuterol HCl 1.25 mg Q6HR NEB 02/06/24 00:00 02/06/24 12:05 1.25 MG Sodium Bicarbonate 100 ml/Dextrose/ Sodium Chloride 1,100 ml @ 100 mls/hr Q11H IV 02/06/24 10:45 02/06/24 14:36 100 MLS/HR Mupirocin 1 applic BID EACHNOSTRI 02/06/24 22:00 02/11/24 22:00 Magnesium Sulfate/ Dextrose 100 ml @ 100 mls/hr Q1HR IV 02/06/24 18:00 02/06/24 19:59 objective GENERAL: Awake, alert, oriented. Morbidly obese. LUNGS: Clear. CARDIOVASCULAR: Heart sounds are good. ABDOMEN: Soft. laboratory and microbiology Laboratory Tests 02/06/24 15:45 02/06/24 05:08 02/06/24 05:06 Test 02/06/24 05:06 Range/Units Serum Glucose 199 H 74-106 mg/dL Problem List Syncope, rule out cardiac etiology. NTEMI type II secondary to urosepsis. History of hypertension now with hypotension. Hyperlipidemia. Thrombocytopenia. History of left lower extremity DV. Type 2 diabetes mellitus. Hypothyroidism. Chronic kidney disease. Obesity. Assessment/Plan Continued all current supportive medical care. IV antibiotics as ordered. GI prophylactics. Vasopressors for hemodynamic support. Morphine for pain management. Additional plan as per the hospital course. Critical care time of 45 minutes provided to include time spent evaluation of the patient at bedside, when appropriate patient/family education of diagnosis, treatment plan, review of pertinent medical information and discussion of care with specialty providers and PCP. Dietary Evaluation Review Comments: 1. Continue current diet regime 2. [place] pt's food preferences 3. Consider add nepro bid (840kcal, 38g pro) for increase PO intake Expected Outcomes/Goals: 1. Pt will consume >75% of estimated needs within 3-5 days Plan discussed with: Patient BIBIANA AVILA MD Feb 06, 2024 18:34
[2024-02-06] MEDS: MAGNESIUM SULFATE 1GM/100ML 100 ML IV SCH (18:36)
[2024-02-06] MEDS: MUPIROCIN 2% OINT 15gm or 22gm FOR MRSA NARES EACHNOSTRI SCH (21:44)
--- NOTE | 2024-02-06 23:59 | DVHPN2 ---
Progress Note - Dictate Date Seen: Feb 06, 2024 Medical Necessity Reason Pt with a Central, PICC or Fol: Yes The following are medically ne: Frey Catheter Reason for frey catheter: Strict I&O Subjective Patient seen and examined at bedside. Remains on supplemental oxygen Overnight events reviewed. vital signs Vital Sign Date Time Temp Pulse Resp B/P (MAP) Pulse Ox O2 Delivery O2 Flow Rate FiO2 02/06/24 22:00 88 02/06/24 21:30 14 106/43 (64) 96 02/06/24 20:00 99.1 99.1 02/06/24 20:00 Nasal Cannula* 1 24 Total Intake and Output 02/05/24 02/05/24 02/06/24 15:00 23:00 07:00 Intake Total 551.25 ml 1010.0 ml 1316.25 ml Output Total 900 ml 1250 ml Balance 551.25 ml 110.0 ml 66.25 ml medications Current Medications Medications Dose Ordered Sig/Ariella Route Start Time Stop Time Status Last Admin Dose Admin Ceftriaxone Sodium 50 ml @ 100 mls/hr DAILY IV 02/03/24 10:00 02/06/24 11:38 100 MLS/HR Dextrose 50 ml UD PRN IV 02/02/24 19:15 Al Hydrox/Mg Hydrox/Simethicone 30 ml Q6HP PRN PO 02/02/24 19:15 Acetaminophen 650 mg Q6HP PRN PO 02/02/24 19:15 Ondansetron HCl 4 mg Q4HP PRN IV 02/02/24 19:15 Morphine Sulfate 2 mg Q4HPRN PRN IV 02/02/24 19:15 02/06/24 11:42 2 MG Norepinephrine Bitartrate 250 ml @ 3.75 mls/hr Q24H IV 02/02/24 23:00 02/06/24 04:37 3.75 MLS/HR Phenylephrine HCl 250 ml @ 30 mls/hr Q8H20M IV 02/03/24 01:45 02/04/24 01:45 48.75 MLS/HR Pantoprazole Sodium 40 mg DAILY IV 02/04/24 10:00 02/06/24 11:38 40 MG Diagnostic Test (Pha) 1 strip ACHS 02/03/24 17:00 02/06/24 21:48 1 STRIP Insulin Human Regular ACHS SC 02/03/24 17:00 02/06/24 21:43 3 UNITS Vasopressin 20 units/Sodium Chloride 100 ml @ 9 mls/hr Q11H7M IV 02/04/24 05:30 Enteral Nutritional Formula 240 ml BID PO 02/05/24 22:00 Doxycycline Hyclate 250 ml @ 125 mls/hr Q12H IV 02/05/24 14:15 02/06/24 14:35 125 MLS/HR Acetylcysteine 200 mg Q8HR NEB 02/05/24 22:00 02/06/24 12:05 200 MG Budesonide 0.5 mg BID NEB 02/05/24 22:00 02/06/24 18:29 0.5 MG Ipratropium [place] 0.5 mg Q6HR NEB 02/06/24 00:00 02/06/24 18:29 0.5 MG Levalbuterol HCl 1.25 mg Q6HR NEB 02/06/24 00:00 02/06/24 18:29 1.25 MG Sodium Bicarbonate 100 ml/Dextrose/ Sodium Chloride 1,100 ml @ 100 mls/hr Q11H IV 02/06/24 10:45 02/06/24 14:36 100 MLS/HR Mupirocin 1 applic BID EACHNOSTRI 02/06/24 22:00 02/11/24 22:00 02/06/24 21:44 1 APPLIC objective Gen.: Patient lying in bed in no apparent distress. On supplemental oxygen. Head: Normocephalic, atraumatic. Eyes: EOMI/PERRLA. Ears: Normal hearing. Normal anatomy. Neck/trachea: Trachea midline, supple. Nose: Normal external anatomy. Mouth: Moist mucous membranes. Chest: Decreased air entry bilaterally. No wheezing or rhonchi. Cardiovascular: Positive S1, positive S2. Regular rate and rhythm. Abdomen: Positive bowel sounds in all 4 quadrants. Soft, non-tender, non- distended. : Deferred. Rectal: Deferred. Skin: Warm, dry. Intact. Extremities: 2+ radial pulses bilaterally. No lower extremity edema. Neuro: Awake, alert, oriented x3. No gross motor or sensory deficits. Cranial nerves II through XII intact. Gait not assessed. laboratory and microbiology Laboratory Tests 02/06/24 05:08 02/06/24 05:06 Test 02/06/24 05:06 Range/Units Serum Glucose 199 H 74-106 mg/dL Assessment/Plan Impression: Acute hypoxic respiratory failure Acute Exacerbation COPD Shock, likely septic due to UTI CHF exacerbation Metabolic acidosis Acute metabolic encephalopathy Hydronephrosis Wheezing H/o DVT LLE Events: Remains on supplemental oxygen, 2 LPM NC Taper O2 as tolerated Off Levophed since 2 AM on 02/06/24 - hemodynamically stable. Continue antibiotics Head of bed elevation Aspiration precautions Continue bicarb drip - 2 amps 100 ml/hr. Potassium supplementation Check magnesium Monitor renal function Labs and imaging reviewed. Rest of plan as noted below. Plan: Supplemental oxygen 2 LPM NC Titrate to keep O2 sats above 92%. Taper O2 as tolerated. Pressors as necessary for hemodynamic support - currently off Titrate to keep mean arterial pressure greater than 65 mmHg. Continue bronchodilators. Continue antibiotics Incentive spirometry Bicarb drip. HOB elevation Aspiration precautions Monitor renal function. Monitor electrolytes. Supplement as necessary. Monitor ins and outs. DVT prophylaxis. Prognosis: Poor given patient's multiple co-morbidities. Condition: Critical Rest of plan per hospitalist and other consultants. A total of 35 minutes of critical care time was spent reviewing the patient record, examining the patient, making a diagnostic and therapeutic plan, discussing this plan with the medical personnel, following up on diagnostic studies and following the patient for clinical stability excluding any and all procedures. At least 50% of this time was spent in direct, [id number] contact. Thank you Dr. Isabel Dey MD, for allowing me to participate in this patient's care. Further recommendations will depend on the patient's clinical course. Please do not hesitate to contact me if you have any questions or concerns. This medical document was created using an electronic medical record system with [employer] dictation system. Although these documentations are being carefully reviewed, there may still be some phonetic and typographical changes. The errors are purely typographical, due to imperfection on the software program, and do not reflect any compromise in the patient's medical care. Dietary Evaluation Review Comments: 1. Continue current diet regime 2. [place] pt's food preferences 3. Consider add nepro bid (840kcal, 38g pro) for increase PO intake Expected Outcomes/Goals: 1. Pt will consume >75% of estimated needs within 3-5 days Plan discussed with: Other (MAYCOL Grubbs) Critical Care Time(min): 35 IRIS LOREDO MD Feb 06, 2024 23:59
[2024-02-07] VITALS (30 sets, daily range): BP systolic 102–127; BP diastolic 37–53; PULSE 82–100; RESP 11–36; TEMP 97.6–99; O2SAT 88–100
[2024-02-07] MEDS: POTASSIUM CHL 20MEQ/100ML 100 ML IV SCH (01:06)
[2024-02-07 05:12] LABS: Basophils # (auto) 0 10 ^3/uL (0-0.2); Basophils % (auto) 0.1 % (0.0-2.0); Lymphocytes # (auto) 0.6 10 ^3/uL (0.4-5.4); Platelet Count (auto) 32 10^3/uL (140-450); White Blood Cell 7.6 10^3/uL (4.4-10.8)
[2024-02-07 05:20] LABS: Eosinophils # (auto) 0.2 10 ^3/uL (0-0.8); Eosinophils % (auto) 2.3 % (0.0-7.0); Hematocrit 26.3 % (36.0-46.0); Hemoglobin 8.9 g/dL (12.2-16.2); Mean Corpuscular Hgb Conc. 33.8 g/dL (32.0-36.0); Mean Corpuscular Volume 91.8 fL (80.0-100.0); Monocytes # (auto) 0.5 10 ^3/uL (0-1.3); Monocytes % (auto) 6.7 % (0.0-12.0); Neutrophils # (auto) 6.3 10 ^3/uL (1.6-8.6); Neutrophils % (auto) 82.9 % (37.0-80.0); Red Blood Cells 2.87 10^6/uL (4.0-5.20); Red Cell Distribution Width 18.8 % (11.8-14.3)
[2024-02-07 05:27] LABS: Alanine Aminotransferase 20 U/L (7-40); Albumin 2.4 g/dL (3.2-4.8); Alkaline Phosphatase 166 U/L (46-116); Anion Gap 7 (5-15); Aspartate Aminotransferase 12 U/L (13-40); BUN/Creatinine Ratio 30.5 (10.0-20.0); Calcium 8.3 mg/dL (8.7-10.4); Carbon Dioxide 25 mmol/L (20-31); Chloride 119 mmol/L (98-107); Glucose 161 mg/dL (74-106); Magnesium 2.3 mg/dL (1.6-2.6); Potassium 3.6 mmol/L (3.5-5.1)
[2024-02-07 05:28] LABS: Bilirubin, Total 0.5 mg/dL (0.2-1.0); Blood Urea Nitrogen 39 mg/dL (9-23); Sodium 151 mmol/L (136-145); Total Protein 4.6 g/dL (5.7-8.2)
[2024-02-07] MEDS: D5W/SOD CHL 0.45% 1,000 ML IV SCH (10:45)
--- NOTE | 2024-02-07 12:47 | DVHPN2 ---
Progress Note Date Seen: Feb 07, 2024 Medical Necessity Reason Pt with a Central, PICC or Fol: Yes The following are medically ne: Frey Catheter Reason for frey catheter: Strict I&O Subjective Patient reports: No new complaints Other Systems: Patient seen and examined by myself today in follow-up Objective vital signs Vital Sign Date Time Temp Pulse Resp B/P (MAP) Pulse Ox O2 Delivery O2 Flow Rate FiO2 02/07/24 08:53 97.6 91 18 126/51 (76) 93 97.6 02/07/24 06:07 Nasal Cannula* 1 24 Total Intake and Output 02/06/24 02/06/24 02/07/24 15:00 23:00 07:00 Intake Total 1175 ml 1125 ml 1150 ml Output Total 625 ml 500 ml Balance 1175 ml 500 ml 650 ml medications Current Medications Medications Dose Ordered Sig/Ariella Route Start Time Stop Time Status Last Admin Dose Admin Ceftriaxone Sodium 50 ml @ 100 mls/hr DAILY IV 02/03/24 10:00 02/07/24 10:40 100 MLS/HR Dextrose 50 ml UD PRN IV 02/02/24 19:15 Al Hydrox/Mg Hydrox/Simethicone 30 ml Q6HP PRN PO 02/02/24 19:15 Acetaminophen 650 mg Q6HP PRN PO 02/02/24 19:15 Ondansetron HCl 4 mg Q4HP PRN IV 02/02/24 19:15 Morphine Sulfate 2 mg Q4HPRN PRN IV 02/02/24 19:15 02/06/24 11:42 2 MG Pantoprazole Sodium 40 mg DAILY IV 02/04/24 10:00 02/07/24 10:41 40 MG Diagnostic Test (Pha) 1 strip ACHS 02/03/24 17:00 02/07/24 10:57 1 STRIP Insulin Human Regular ACHS SC 02/03/24 17:00 02/07/24 06:41 2 UNITS Vasopressin 20 units/Sodium Chloride 100 ml @ 9 mls/hr Q11H7M IV 02/04/24 05:30 Enteral Nutritional Formula 240 ml BID PO 02/05/24 22:00 Doxycycline Hyclate 250 ml @ 125 mls/hr Q12H IV 02/05/24 14:15 02/07/24 02:14 125 MLS/HR Acetylcysteine 200 mg Q8HR NEB 02/05/24 22:00 02/07/24 06:07 200 MG Budesonide 0.5 mg BID NEB 02/05/24 22:00 02/07/24 06:07 0.5 MG Ipratropium [place] 0.5 mg Q6HR NEB 02/06/24 00:00 02/07/24 06:07 0.5 MG Levalbuterol HCl 1.25 mg Q6HR NEB 02/06/24 00:00 02/07/24 06:07 1.25 MG Mupirocin 1 applic BID EACHNOSTRI 02/06/24 22:00 02/11/24 22:00 02/06/24 21:44 1 APPLIC Dextrose/Sodium Chloride 1,000 ml @ 100 mls/hr Q10H IV 02/07/24 10:45 Examination: LUNGS:Normal, CVS:Normal, MSK:Normal laboratory and microbiology Laboratory Tests 02/07/24 04:49 Test 02/07/24 04:49 Range/Units Serum Glucose 161 H 74-106 mg/dL Microbiology Date/Time Source Procedure Growth Status 02/05/24 15:43 Nose MRSA Screen - Final Methicillin Resistant S.aureus Complete 02/05/24 13:05 Blood Blood Culture - Preliminary NO GROWTH AFTER 24 HOURS OF INCUBATION. Resulted 02/02/24 16:00 Urine - [place] Urine Culture - Final Klebsiella pneumoniae Complete Problem List/Assessment/Plan Problem List/Assessment/Plan Hemodynamically mediated МАРИЯ/VMN in the setting of mild volume depletion also possibly component of obstructive uropathy CKD stage IIIA Diabetes mellitus type 2 Hypertension Hypothyroidism Metabolic acidosis Urinary tract infections Hyponatremia due to dehydration Right hydronephrosis Recommendations Kidney function is improving Increased urine output Strict I&Os Change IV fluid to D5 half NS at 100 cc/hour kidney ultrasound reported right hydronephrosis Check urine electrolytes and urine protein excretion Urology consult We will continue to follow Plan discussed with: Patient My Orders My Orders Orders - LINA JACOBSEN MD Procedure Category Date Status Time D5w/Sod Chl 0.45% PHA 02/07/24 In Process (D5w 1/2ns) 10:45 Dietary Evaluation Review Comments: 1. Continue current diet regime 2. [place] pt's food preferences 3. Consider add nepro bid (840kcal, 38g pro) for increase PO intake Expected Outcomes/Goals: 1. Pt will consume >75% of estimated needs within 3-5 days LINA JACOBSEN MD Feb 07, 2024 12:47
--- NOTE | 2024-02-07 13:32 | DVHPN2 ---
Subjective Confused She is on still on Levophed drip She is on bicarbonate drip The CO2 is still 13 Creatinine is improved Changes from previous H/P or p: Changes Eyes: No Pain, No Vision change, No Conjunctivae inflammation, No Eyelid inflammation, No Other, No Redness ENT: No Ear pain, No Ear discharge, No Nose pain, No Nose discharge, No Nose congestion, No Mouth pain, No Mouth swelling, No Throat pain, No Throat swelling, No Other Cardiovascular: Chest Pain, Palpitations Respiratory: Cough, Shortness of breath Gastrointestinal: No Nausea, No Vomiting, No Abdominal Pain, No Diarrhea, No Constipation, No Melena, No Hematochezia, No Other Genitourinary: No Dysuria, No Frequency, No Incontinence, No Hematuria, No Retention, No Other Musculoskeletal: No other, No neck pain, No shoulder pain, No arm pain, No back pain, No hand pain, No leg pain, No foot pain Skin: No Rash, No Lesions, No Jaundice, No Bruising, No Other Objective Vitals Vital Signs Date Time Temp Pulse Resp B/P (MAP) Pulse Ox O2 Delivery O2 Flow Rate FiO2 02/07/24 13:19 91 18 99 02/07/24 13:11 Nasal Cannula 1.0 02/07/24 13:11 24 02/07/24 08:53 97.6 126/51 (76) 97.6 Intake/Output Intake and Output 02/07/24 07:00 Intake Total 3450 ml Output Total 1125 ml Balance 2325 ml Intake Oral 0 ml IV Total 3450 ml Output Urine Total 1125 ml General Appearance: Alert, Other (somenolent) Lungs: Clear to auscultation, Normal air movement Cardiovascular: Regular rate, Normal S1, Normal S2 Abdomen: Normal bowel sounds, Soft, No tenderness Extremities: No edema Medications Current Medications Medications Dose Ordered Sig/Ariella Route Start Time Stop Time Status Last Admin Dose Admin Ceftriaxone Sodium 50 ml @ 100 mls/hr DAILY IV 02/03/24 10:00 02/07/24 10:40 100 MLS/HR Dextrose 50 ml UD PRN IV 02/02/24 19:15 Al Hydrox/Mg Hydrox/Simethicone 30 ml Q6HP PRN PO 02/02/24 19:15 Acetaminophen 650 mg Q6HP PRN PO 02/02/24 19:15 Ondansetron HCl 4 mg Q4HP PRN IV 02/02/24 19:15 Morphine Sulfate 2 mg Q4HPRN PRN IV 02/02/24 19:15 02/06/24 11:42 2 MG Pantoprazole Sodium 40 mg DAILY IV 02/04/24 10:00 02/07/24 10:41 40 MG Diagnostic Test (Pha) 1 strip ACHS 02/03/24 17:00 02/07/24 10:57 1 STRIP Insulin Human Regular ACHS SC 02/03/24 17:00 02/07/24 06:41 2 UNITS Vasopressin 20 units/Sodium Chloride 100 ml @ 9 mls/hr Q11H7M IV 02/04/24 05:30 Enteral Nutritional Formula 240 ml BID PO 02/05/24 22:00 Doxycycline Hyclate 250 ml @ 125 mls/hr Q12H IV 02/05/24 14:15 02/07/24 02:14 125 MLS/HR Acetylcysteine 200 mg Q8HR NEB 02/05/24 22:00 02/07/24 13:11 200 MG Budesonide 0.5 mg BID NEB 02/05/24 22:00 02/07/24 06:07 0.5 MG Ipratropium [place] 0.5 mg Q6HR NEB 02/06/24 00:00 02/07/24 13:11 0.5 MG Levalbuterol HCl 1.25 mg Q6HR NEB 02/06/24 00:00 02/07/24 13:11 1.25 MG Mupirocin 1 applic BID EACHNOSTRI 02/06/24 22:00 02/11/24 22:00 02/06/24 21:44 1 APPLIC Dextrose/Sodium Chloride 1,000 ml @ 100 mls/hr Q10H IV 02/07/24 10:45 Laboratory Results Laboratory Tests 02/07/24 04:49 Chemistry Test 02/06/24 15:45 02/07/24 04:49 Magnesium Level 1.9 mg/dL (1.6-2.6) 2.3 mg/dL (1.6-2.6) Albumin 2.4 g/dL (3.2-4.8) L Calcium Level 8.3 mg/dL (8.7-10.4) L Total Protein 4.6 g/dL (5.7-8.2) L LFT Test 02/07/24 04:49 Alanine Aminotransferase (ALT) 20 U/L (7-40) Alkaline Phosphatase 166 U/L (46-116) H Aspartate Amino Transferase (AST) 12 U/L (13-40) L Total Bilirubin 0.5 mg/dL (0.2-1.0) Urinalysis Test 02/02/24 16:00 Urine Color Yellow (Yellow) Urine Clarity Turbid (Clear) H Urine pH 5.5 (5.0-9.0) Urine Specific [place] 1.013 (1.001-1.035) Urine Protein 1+ (Negative) H Urine Ketones Negative (Negative) Urine Blood 2+ /uL (Negative) H Urine Nitrite Negative (Negative) Urine Bilirubin Negative (Negative) Urine Urobilinogen Normal mg/dL (Negative) Urine Leukocyte Esterase 1+ /uL (Negative) Urine RBC 2 /hpf (0 - 4) Urine WBC 24 /hpf (0 - 5) Urine Squamous Epithelial Cells Few /hpf (<5) Urine Amorphous Crystals Few /hpf (None Seen) Urine Bacteria Many /hpf (None Seen) H Urine Glucose Normal mg/dL (Normal) Microbiology Microbiology Date/Time Source Procedure Growth Status 02/05/24 15:43 Nose MRSA Screen - Final Methicillin Resistant S.aureus Complete 02/05/24 13:05 Blood Blood Culture - Preliminary NO GROWTH AFTER 48 HOURS OF INCUBATION. Resulted 02/02/24 16:00 Urine - [place] Urine Culture - Final Klebsiella pneumoniae Complete Assessment/Plan Assessment/Plan МАРИЯ Intractable N/V/D UTI h/o DVT LLE Hypothyroidism DM2 Dyslipidemia Thrombocytopenia PLAN: IV fluids Vasopressors IV antibiotics: Rocephin and Flagyl Protonix Discussed with daughter over the phone DNR DC Lasix DC Metoprolol DC Midodrine 02/04/2024: Continue vasopressors as needed Continue Rocephin IV Continue IV fluids Add sodium bicarbonate drip to correct the metabolic acidosis Nephrology consultation Avoid NSAIDs and contrast and Shlomo or arbs DNR Discussed with the family at the bedside 02/05/2024: Continue Levophed drip Continue IV Rocephin Continue IV fluids with D5 NS with sodium bicarbonate Nephrology consult DNR Add doxycycline IV 02/06/24: More alert Replace K+ and Mg Check BLE venous doppler Continue IV fluids with sodium bicarbonate Levophed drip as needed IV Rocephin and doxycycline DNR Kidney ultrasound UTI with Klebsiella pneumoniae 02/07/2024: Kidney function is improving Continue IV fluids Swallow eval Start diet when the swallow eval is done She is much more alert and oriented Physical therapy Thrombocytopenia due to sepsis Sepsis Order home health physical therapy Hypernatremia: Change IV fluids to half NS, starts p.o. intake Discussed with the family at the bedside Plan discussed with: Patient My Orders Orders - XAVIER AIKEN MD Procedure Category Date Status Time Mupirocin 2% Oint PHA 02/06/24 In Process Mrsa Nares (Bactroban 22:00 Date of Service: Feb 07, 2024 Billing Provider: XAVIER AIKEN MD Common Visit Codes: NOT BILLABLE XAVIER AIKEN MD Feb 07, 2024 13:32
[2024-02-07 16:05] LABS: Urine Bacteria FEW /hpf (None Seen); Urine Blood 3+ /uL (Negative); Urine Clarity Turbid (Clear); Urine Color Yellow (Yellow); Urine Mucus FEW (None Seen); Urine Protein, UAD 1+ (Negative); Urine Specific Gravity 1.018 (1.001-1.035); Urine Urobilinogen Normal (Negative); Urine WBC 126 /hpf (0 - 5); Urine pH 5.5 (5.0-9.0)
[2024-02-07 16:11] LABS: Protein, Urine 127.8 mg/dL (1-14)
[2024-02-07 16:13] LABS: Creatinine, Urine 70.94 mg/dL (30.0-125.0); Urine Protein/Creatinine Ratio 1.8
--- NOTE | 2024-02-07 18:40 | DVHPN2 ---
Progress Note - Dictate Date Seen: Feb 07, 2024 Medical Necessity Reason Pt with a Central, PICC or Fol: Yes The following are medically ne: Frey Catheter Reason for frey catheter: Strict I&O Subjective Patient seen and examined at bedside. Remains on supplemental oxygen Overnight events reviewed. vital signs Vital Sign Date Time Temp Pulse Resp B/P (MAP) Pulse Ox O2 Delivery O2 Flow Rate FiO2 02/07/24 18:20 84 18 99 02/07/24 18:12 Room Air* 0 21 02/07/24 17:00 98.2 127/46 (73) 98.2 Total Intake and Output 02/06/24 02/06/24 02/07/24 15:00 23:00 07:00 Intake Total 1175 ml 1125 ml 1150 ml Output Total 625 ml 500 ml Balance 1175 ml 500 ml 650 ml medications Current Medications Medications Dose Ordered Sig/Ariella Route Start Time Stop Time Status Last Admin Dose Admin Ceftriaxone Sodium 50 ml @ 100 mls/hr DAILY IV 02/03/24 10:00 02/07/24 10:40 100 MLS/HR Dextrose 50 ml UD PRN IV 02/02/24 19:15 Al Hydrox/Mg Hydrox/Simethicone 30 ml Q6HP PRN PO 02/02/24 19:15 Acetaminophen 650 mg Q6HP PRN PO 02/02/24 19:15 Ondansetron HCl 4 mg Q4HP PRN IV 02/02/24 19:15 Morphine Sulfate 2 mg Q4HPRN PRN IV 02/02/24 19:15 02/06/24 11:42 2 MG Pantoprazole Sodium 40 mg DAILY IV 02/04/24 10:00 02/07/24 10:41 40 MG Diagnostic Test (Pha) 1 strip ACHS 02/03/24 17:00 02/07/24 17:29 1 STRIP Insulin Human Regular ACHS SC 02/03/24 17:00 02/07/24 17:29 3 UNITS Vasopressin 20 units/Sodium Chloride 100 ml @ 9 mls/hr Q11H7M IV 02/04/24 05:30 Enteral Nutritional Formula 240 ml BID PO 02/05/24 22:00 Doxycycline Hyclate 250 ml @ 125 mls/hr Q12H IV 02/05/24 14:15 02/07/24 15:21 125 MLS/HR Acetylcysteine 200 mg Q8HR NEB 02/05/24 22:00 02/07/24 13:11 200 MG Budesonide 0.5 mg BID NEB 02/05/24 22:00 02/07/24 06:07 0.5 MG Ipratropium [place] 0.5 mg Q6HR NEB 02/06/24 00:00 02/07/24 18:12 0.5 MG Levalbuterol HCl 1.25 mg Q6HR NEB 02/06/24 00:00 02/07/24 18:12 1.25 MG Mupirocin 1 applic BID EACHNOSTRI 02/06/24 22:00 02/11/24 22:00 02/07/24 15:22 1 APPLIC Dextrose/Sodium Chloride 1,000 ml @ 100 mls/hr Q10H IV 02/07/24 10:45 02/07/24 10:45 100 MLS/HR objective Gen.: Patient lying in bed in no apparent distress. On supplemental oxygen. Head: Normocephalic, atraumatic. Eyes: EOMI/PERRLA. Ears: Normal hearing. Normal anatomy. Neck/trachea: Trachea midline, supple. Nose: Normal external anatomy. Mouth: Moist mucous membranes. Chest: Decreased air entry bilaterally. No wheezing or rhonchi. Cardiovascular: Positive S1, positive S2. Regular rate and rhythm. Abdomen: Positive bowel sounds in all 4 quadrants. Soft, non-tender, non- distended. : Deferred. Rectal: Deferred. Skin: Warm, dry. Intact. Extremities: 2+ radial pulses bilaterally. No lower extremity edema. Neuro: Awake, alert, oriented x3. No gross motor or sensory deficits. Cranial nerves II through XII intact. Gait not assessed. laboratory and microbiology Laboratory Tests 02/07/24 04:49 Test 02/07/24 04:49 Range/Units Serum Glucose 161 H 74-106 mg/dL Assessment/Plan Impression: Acute hypoxic respiratory failure Acute Exacerbation COPD Shock, likely septic due to UTI CHF exacerbation Metabolic acidosis Acute metabolic encephalopathy Hydronephrosis Wheezing H/o DVT LLE Events: Remains on supplemental oxygen, 1 LPM NC Taper O2 as tolerated Off Levophed, hemodynamically stable. Continue antibiotics Incentive spirometry Head of bed elevation Aspiration precautions Passed swallow eval - on mechanical soft diet. Continue bicarb drip - 2 amps 100 ml/hr. Potassium, magnesium supplementation Monitor renal function IV fluids at 100 ml/hr. Consider central line removal. Patient is out of bed to chair. Labs and imaging reviewed. Rest of plan as noted below. Plan: Supplemental oxygen 1 LPM NC Titrate to keep O2 sats above 92%. Taper O2 as tolerated. Pressors as necessary for hemodynamic support - currently off Titrate to keep mean arterial pressure greater than 65 mmHg. Continue bronchodilators. Continue antibiotics Incentive spirometry Bicarb drip. HOB elevation Aspiration precautions Monitor renal function. Monitor electrolytes. Supplement as necessary. Monitor ins and outs. DVT prophylaxis. Prognosis: Poor given patient's multiple co-morbidities. Rest of plan per hospitalist and other consultants. Thank you Dr. Isabel Dye MD, for allowing me to participate in this patient's care. Further recommendations will depend on the patient's clinical course. Please do not hesitate to contact me if you have any questions or concerns. This medical document was created using an electronic medical record system with [employer] dictation system. Although these documentations are being carefully reviewed, there may still be some phonetic and typographical changes. The errors are purely typographical, due to imperfection on the software program, and do not reflect any compromise in the patient's medical care. Dietary Evaluation Review Comments: 1. Continue current diet regime 2. [place] pt's food preferences 3. Consider add nepro bid (840kcal, 38g pro) for increase PO intake Expected Outcomes/Goals: 1. Pt will consume >75% of estimated needs within 3-5 days Plan discussed with: Patient, Other (RN Summer) IRIS LOREDO MD Feb 07, 2024 18:40
--- NOTE | 2024-02-07 23:04 | DVHPN2 ---
Progress Note - Dictate Date Seen: Feb 07, 2024 Medical Necessity Reason Pt with a Central, PICC or Fol: Yes The following are medically ne: Frey Catheter Reason for frey catheter: Strict I&O Subjective Patient was seen and evaluated in follow up. The patient was downgraded. Patient remains on supplemental O2. HGB 8.9, HCT 26.3, NA 151, BUN 39, Cheese Sprayer 1.28. Patients electrolytes were replaced. vital signs Vital Sign Date Time Temp Pulse Resp B/P (MAP) Pulse Ox O2 Delivery O2 Flow Rate FiO2 02/07/24 22:41 94 22 100 02/07/24 22:25 Nasal Cannula 1.0 02/07/24 22:25 24 02/07/24 21:00 98.8 125/53 (77) 98.8 Total Intake and Output 02/06/24 02/06/24 02/07/24 15:00 23:00 07:00 Intake Total 1175 ml 1125 ml 1150 ml Output Total 625 ml 500 ml Balance 1175 ml 500 ml 650 ml medications Current Medications Medications Dose Ordered Sig/Ariella Route Start Time Stop Time Status Last Admin Dose Admin Ceftriaxone Sodium 50 ml @ 100 mls/hr DAILY IV 02/03/24 10:00 02/07/24 10:40 100 MLS/HR Dextrose 50 ml UD PRN IV 02/02/24 19:15 Al Hydrox/Mg Hydrox/Simethicone 30 ml Q6HP PRN PO 02/02/24 19:15 Acetaminophen 650 mg Q6HP PRN PO 02/02/24 19:15 Ondansetron HCl 4 mg Q4HP PRN IV 02/02/24 19:15 Morphine Sulfate 2 mg Q4HPRN PRN IV 02/02/24 19:15 02/06/24 11:42 2 MG Pantoprazole Sodium 40 mg DAILY IV 02/04/24 10:00 02/07/24 10:41 40 MG Diagnostic Test (Pha) 1 strip ACHS 02/03/24 17:00 02/07/24 22:01 1 STRIP Insulin Human Regular ACHS SC 02/03/24 17:00 02/07/24 22:04 3 UNITS Vasopressin 20 units/Sodium Chloride 100 ml @ 9 mls/hr Q11H7M IV 02/04/24 05:30 Enteral Nutritional Formula 240 ml BID PO 02/05/24 22:00 Doxycycline Hyclate 250 ml @ 125 mls/hr Q12H IV 02/05/24 14:15 02/07/24 15:21 125 MLS/HR Acetylcysteine 200 mg Q8HR NEB 02/05/24 22:00 02/07/24 22:24 200 MG Budesonide 0.5 mg BID NEB 02/05/24 22:00 02/07/24 22:24 0.5 MG Ipratropium [place] 0.5 mg Q6HR NEB 02/06/24 00:00 02/07/24 22:24 0.5 MG Levalbuterol HCl 1.25 mg Q6HR NEB 02/06/24 00:00 02/07/24 22:24 1.25 MG Mupirocin 1 applic BID EACHNOSTRI 02/06/24 22:00 02/11/24 22:00 02/07/24 22:10 1 APPLIC Dextrose/Sodium Chloride 1,000 ml @ 100 mls/hr Q10H IV 02/07/24 10:45 02/07/24 10:45 100 MLS/HR objective GENERAL: Awake, alert, oriented. Morbidly obese. LUNGS: Clear. CARDIOVASCULAR: Heart sounds are good. ABDOMEN: Soft. laboratory and microbiology Laboratory Tests 02/07/24 04:49 Test 02/07/24 04:49 Range/Units Serum Glucose 161 H 74-106 mg/dL Problem List Syncope, rule out cardiac etiology. NTEMI type II secondary to urosepsis. History of hypertension now with hypotension. Hyperlipidemia. Thrombocytopenia. History of left lower extremity DV. Type 2 diabetes mellitus. Hypothyroidism. Chronic kidney disease. Obesity. Assessment/Plan Continued all current supportive medical care. IV antibiotics as ordered. GI prophylactics. Vasopressors for hemodynamic support. Morphine for pain management. Additional plan as per the hospital course. Critical care time of 45 minutes provided to include time spent evaluation of the patient at bedside, when appropriate patient/family education of diagnosis, treatment plan, review of pertinent medical information and discussion of care with specialty providers and PCP. Dietary Evaluation Review Comments: 1. Continue current diet regime 2. [place] pt's food preferences 3. Consider add nepro bid (840kcal, 38g pro) for increase PO intake Expected Outcomes/Goals: 1. Pt will consume >75% of estimated needs within 3-5 days Plan discussed with: Patient BIBIANA AVILA MD Feb 07, 2024 23:04
[2024-02-08] VITALS (15 sets, daily range): BP systolic 117–130; BP diastolic 48–54; PULSE 75–98; RESP 16–20; TEMP 98–98.9; O2SAT 94–100
[2024-02-08] MEDS: ACETAMINOPHEN 325 MG TAB PO PRN (02:05)
[2024-02-08 08:12] LABS: Chloride 116 mmol/L (98-107); Potassium 3.5 mmol/L (3.5-5.1); Sodium 148 mmol/L (136-145)
[2024-02-08 08:13] LABS: Anion Gap 8 (5-15); Calcium 8.3 mg/dL (8.7-10.4); Carbon Dioxide 24 mmol/L (20-31)
[2024-02-08 08:18] LABS: BUN/Creatinine Ratio 27.7 (10.0-20.0); Blood Urea Nitrogen 31 mg/dL (9-23); Glucose 152 mg/dL (74-106)
[2024-02-08 08:19] LABS: Magnesium 1.8 mg/dL (1.6-2.6)
--- NOTE | 2024-02-08 10:01 | DVHPN2 ---
Subjective Better She has not been seen by Physical therapy yet She is eating Sodium is better Changes from previous H/P or p: Changes Eyes: No Pain, No Vision change, No Conjunctivae inflammation, No Eyelid inflammation, No Other, No Redness ENT: No Ear pain, No Ear discharge, No Nose pain, No Nose discharge, No Nose congestion, No Mouth pain, No Mouth swelling, No Throat pain, No Throat swelling, No Other Cardiovascular: Chest Pain, Palpitations Respiratory: Cough, Shortness of breath Gastrointestinal: No Nausea, No Vomiting, No Abdominal Pain, No Diarrhea, No Constipation, No Melena, No Hematochezia, No Other Genitourinary: No Dysuria, No Frequency, No Incontinence, No Hematuria, No Retention, No Other Musculoskeletal: No other, No neck pain, No shoulder pain, No arm pain, No back pain, No hand pain, No leg pain, No foot pain Skin: No Rash, No Lesions, No Jaundice, No Bruising, No Other Objective Vitals Vital Signs Date Time Temp Pulse Resp B/P (MAP) Pulse Ox O2 Delivery O2 Flow Rate FiO2 02/08/24 08:34 98.2 82 18 130/54 (79) 97 98.2 02/08/24 07:06 Nasal Cannula* 3 32 Intake/Output Intake and Output 02/08/24 07:00 Intake Total 2480 ml Output Total 990 ml Balance 1490 ml Intake Oral 930 ml IV Total 1550 ml Output Urine Total 990 ml # Bowel Movements 1 General Appearance: Alert, Other (somenolent) Lungs: Clear to auscultation, Normal air movement Cardiovascular: Regular rate, Normal S1, Normal S2 Abdomen: Normal bowel sounds, Soft, No tenderness Extremities: No edema Medications Current Medications Medications Dose Ordered Sig/Ariella Route Start Time Stop Time Status Last Admin Dose Admin Ceftriaxone Sodium 50 ml @ 100 mls/hr DAILY IV 02/03/24 10:00 02/08/24 09:51 100 MLS/HR Dextrose 50 ml UD PRN IV 02/02/24 19:15 Al Hydrox/Mg Hydrox/Simethicone 30 ml Q6HP PRN PO 02/02/24 19:15 Acetaminophen 650 mg Q6HP PRN PO 02/02/24 19:15 02/08/24 02:05 650 MG Ondansetron HCl 4 mg Q4HP PRN IV 02/02/24 19:15 Morphine Sulfate 2 mg Q4HPRN PRN IV 02/02/24 19:15 02/06/24 11:42 2 MG Pantoprazole Sodium 40 mg DAILY IV 02/04/24 10:00 02/08/24 09:51 40 MG Diagnostic Test (Pha) 1 strip ACHS 02/03/24 17:00 02/08/24 06:08 1 STRIP Insulin Human Regular ACHS SC 02/03/24 17:00 02/08/24 06:17 3 UNITS Vasopressin 20 units/Sodium Chloride 100 ml @ 9 mls/hr Q11H7M IV 02/04/24 05:30 Enteral Nutritional Formula 240 ml BID PO 02/05/24 22:00 02/08/24 09:51 240 ML Doxycycline Hyclate 250 ml @ 125 mls/hr Q12H IV 02/05/24 14:15 02/08/24 01:31 125 MLS/HR Acetylcysteine 200 mg Q8HR NEB 02/05/24 22:00 02/08/24 07:06 200 MG Budesonide 0.5 mg BID NEB 02/05/24 22:00 02/08/24 07:06 0.5 MG Ipratropium [place] 0.5 mg Q6HR NEB 02/06/24 00:00 02/08/24 07:06 0.5 MG Levalbuterol HCl 1.25 mg Q6HR NEB 02/06/24 00:00 02/08/24 07:06 1.25 MG Mupirocin 1 applic BID EACHNOSTRI 02/06/24 22:00 02/11/24 22:00 02/08/24 09:51 1 APPLIC Dextrose/Sodium Chloride 1,000 ml @ 100 mls/hr Q10H IV 02/07/24 10:45 02/08/24 01:30 100 MLS/HR Laboratory Results Laboratory Tests 02/07/24 04:49 02/08/24 07:53 Chemistry Test 02/08/24 07:53 Calcium Level 8.3 mg/dL (8.7-10.4) L Magnesium Level 1.8 mg/dL (1.6-2.6) Urinalysis Test 02/02/24 16:00 02/07/24 13:56 Urine Amorphous Crystals Few /hpf (None Seen) Urine Color Yellow (Yellow) Urine Clarity Turbid (Clear) H Urine pH 5.5 (5.0-9.0) Urine Specific [place] 1.018 (1.001-1.035) Urine Protein 1+ (Negative) H Urine Ketones Negative (Negative) Urine Blood 3+ /uL (Negative) H Urine Nitrite Negative (Negative) Urine Bilirubin Negative (Negative) Urine Urobilinogen Normal mg/dL (Negative) Urine Leukocyte Esterase 3+ /uL (Negative) Urine RBC 98 /hpf (0 - 4) Urine WBC 126 /hpf (0 - 5) Urine Squamous Epithelial Cells Few /hpf (<5) Urine Bacteria Few /hpf (None Seen) H Urine Mucus Few (None Seen) Urine Creatinine 70.94 mg/dL (30.0-125.0) Urine Protein/Creatinine Ratio 1.80 Urine Sodium 60 mmol/L (40-220) Urine Glucose Normal mg/dL (Normal) Urine Total Protein 127.8 mg/dL (1-14) H Microbiology Microbiology Date/Time Source Procedure Growth Status 02/05/24 15:43 Nose MRSA Screen - Final Methicillin Resistant S.aureus Complete 02/05/24 13:05 Blood Blood Culture - Preliminary NO GROWTH AFTER 48 HOURS OF INCUBATION. Resulted 02/02/24 16:00 Urine - [place] Urine Culture - Final Klebsiella pneumoniae Complete Assessment/Plan Assessment/Plan МАРИЯ Intractable N/V/D UTI h/o DVT LLE Hypothyroidism DM2 Dyslipidemia Thrombocytopenia PLAN: IV fluids Vasopressors IV antibiotics: Rocephin and Flagyl Protonix Discussed with daughter over the phone DNR DC Lasix DC Metoprolol DC Midodrine 02/04/2024: Continue vasopressors as needed Continue Rocephin IV Continue IV fluids Add sodium bicarbonate drip to correct the metabolic acidosis Nephrology consultation Avoid NSAIDs and contrast and Shlomo or arbs DNR Discussed with the family at the bedside 02/05/2024: Continue Levophed drip Continue IV Rocephin Continue IV fluids with D5 NS with sodium bicarbonate Nephrology consult DNR Add doxycycline IV 02/06/24: More alert Replace K+ and Mg Check BLE venous doppler Continue IV fluids with sodium bicarbonate Levophed drip as needed IV Rocephin and doxycycline DNR Kidney ultrasound UTI with Klebsiella pneumoniae 02/07/2024: Kidney function is improving Continue IV fluids Swallow eval Start diet when the swallow eval is done She is much more alert and oriented Physical therapy Thrombocytopenia due to sepsis Sepsis Order home health physical therapy Hypernatremia: Change IV fluids to half NS, starts p.o. intake Discussed with the family at the bedside 02/08/2024: Physical therapy today Out of bed as tolerated Plan to go home in 1-2 days once she is out of bed Discontinue the central line Keep the [place] catheter in for now Plan discussed with: Patient My Orders Orders - XAVIER AIKEN MD Procedure Category Date Status Time * Electrical Systems Design Engineer CONS 02/07/24 Transmitted Consult Pt Request For Service PT 02/07/24 Logged 13:29 Mechanical Soft Diet DIET 02/07/24 Transmitted Dinner Date of Service: Feb 08, 2024 Billing Provider: XAVIER AIKEN MD Common Visit Codes: NOT BILLABLE XAVIER AIKEN MD Feb 08, 2024 10:01
--- NOTE | 2024-02-08 11:39 | DVHPN2 ---
Progress Note Date Seen: Feb 08, 2024 Medical Necessity Reason Pt with a Central, PICC or Fol: Yes The following are medically ne: Frey Catheter Reason for frey catheter: Strict I&O Subjective Patient reports: No new complaints Other Systems: Patient seen and examined by myself today in follow-up Objective vital signs Vital Sign Date Time Temp Pulse Resp B/P (MAP) Pulse Ox O2 Delivery O2 Flow Rate FiO2 02/08/24 08:34 98.2 82 18 130/54 (79) 97 98.2 02/08/24 07:06 Nasal Cannula* 3 32 Total Intake and Output 02/07/24 02/07/24 02/08/24 15:00 23:00 07:00 Intake Total 50 ml 900 ml 1530 ml Output Total 540 ml 450 ml Balance 50 ml 360 ml 1080 ml medications Current Medications Medications Dose Ordered Sig/Ariella Route Start Time Stop Time Status Last Admin Dose Admin Ceftriaxone Sodium 50 ml @ 100 mls/hr DAILY IV 02/03/24 10:00 02/08/24 09:51 100 MLS/HR Dextrose 50 ml UD PRN IV 02/02/24 19:15 Al Hydrox/Mg Hydrox/Simethicone 30 ml Q6HP PRN PO 02/02/24 19:15 Acetaminophen 650 mg Q6HP PRN PO 02/02/24 19:15 02/08/24 02:05 650 MG Ondansetron HCl 4 mg Q4HP PRN IV 02/02/24 19:15 Morphine Sulfate 2 mg Q4HPRN PRN IV 02/02/24 19:15 02/06/24 11:42 2 MG Pantoprazole Sodium 40 mg DAILY IV 02/04/24 10:00 02/08/24 09:51 40 MG Diagnostic Test (Pha) 1 strip ACHS 02/03/24 17:00 02/08/24 11:34 1 STRIP Insulin Human Regular ACHS SC 02/03/24 17:00 02/08/24 11:35 2 UNITS Vasopressin 20 units/Sodium Chloride 100 ml @ 9 mls/hr Q11H7M IV 02/04/24 05:30 Enteral Nutritional Formula 240 ml BID PO 02/05/24 22:00 02/08/24 09:51 240 ML Doxycycline Hyclate 250 ml @ 125 mls/hr Q12H IV 02/05/24 14:15 02/08/24 01:31 125 MLS/HR Acetylcysteine 200 mg Q8HR NEB 02/05/24 22:00 02/08/24 07:06 200 MG Budesonide 0.5 mg BID NEB 02/05/24 22:00 02/08/24 07:06 0.5 MG Ipratropium [place] 0.5 mg Q6HR NEB 02/06/24 00:00 02/08/24 07:06 0.5 MG Levalbuterol HCl 1.25 mg Q6HR NEB 02/06/24 00:00 02/08/24 07:06 1.25 MG Mupirocin 1 applic BID EACHNOSTRI 02/06/24 22:00 02/11/24 22:00 02/08/24 09:51 1 APPLIC Dextrose/Sodium Chloride 1,000 ml @ 100 mls/hr Q10H IV 02/07/24 10:45 02/08/24 01:30 100 MLS/HR Examination: LUNGS:Normal, CVS:Normal, MSK:Normal laboratory and microbiology Laboratory Tests 02/08/24 07:53 02/07/24 04:49 Test 02/08/24 07:53 Range/Units Serum Glucose 152 H 74-106 mg/dL Microbiology Date/Time Source Procedure Growth Status 02/05/24 15:43 Nose MRSA Screen - Final Methicillin Resistant S.aureus Complete 02/05/24 13:05 Blood Blood Culture - Preliminary NO GROWTH AFTER 48 HOURS OF INCUBATION. Resulted 02/02/24 16:00 Urine - [place] Urine Culture - Final Klebsiella pneumoniae Complete Problem List/Assessment/Plan Problem List/Assessment/Plan Hemodynamically mediated МАРИЯ/VMN in the setting of mild volume depletion also possibly component of obstructive uropathy CKD stage IIIA Diabetes mellitus type 2 Hypertension Hypothyroidism Metabolic acidosis Urinary tract infections Hyponatremia due to dehydration Right hydronephrosis Recommendations Kidney function is improving Increased urine output Strict I&Os Change IV fluid to D5 half NS at 100 cc/hour kidney ultrasound reported right hydronephrosis Check urine electrolytes and urine protein excretion Urology consult I will sign off this case please reconsult as needed Thank you for the consult Plan discussed with: Patient My Orders My Orders Orders - LINA JACOBSEN MD Procedure Category Date Status Time Communication Order ORDERS 02/07/24 Transmitted 12:47 Dietary Evaluation Review Comments: 1. Continue current diet regime 2. [place] pt's food preferences 3. Consider add nepro bid (840kcal, 38g pro) for increase PO intake Expected Outcomes/Goals: 1. Pt will consume >75% of estimated needs within 3-5 days LINA JACOBSEN MD Feb 08, 2024 11:39
--- NOTE | 2024-02-08 11:42 | CONS ---
Pharmacy Clinical Information: From [facility] Heart Failure Fallout Report, Mahi Mckinley is a 78 year old female with PMH of CAD, CHF, DM, thyroid disease, and hyperlipidemia. Her home medications include atorvastatin 10 mg PO QD. According to the 2018 blood cholesterol guidelines, it is reasonable to continue statin therapy in adults over the age of 75 with diabetes who were already on statin therapy. Consider reinitiating home statin therapy when LFTs normalize and if patient is able to tolerate PO. NNAMDI MCCRAY PHARMACIST Feb 08, 2024 11:42
--- NOTE | 2024-02-08 20:30 | DVHPN2 ---
Progress Note - Dictate Date Seen: Feb 08, 2024 Medical Necessity Reason Pt with a Central, PICC or Fol: Yes The following are medically ne: Frey Catheter Reason for frey catheter: Strict I&O Subjective Patient was seen and evaluated in follow up. Patient complains of generalized pain. Patient reports feeling better since admission. Patient is tolerating current diet. NA 148, BUN 31, FOOD PRODUCTION WORKER 1.12, CA 8.3. Pending PT eval. vital signs Vital Sign Date Time Temp Pulse Resp B/P (MAP) Pulse Ox O2 Delivery O2 Flow Rate FiO2 02/08/24 13:36 80 18 100 02/08/24 13:29 Nasal Cannula* 3 32 02/08/24 12:55 98.0 119/53 (75) 98.0 Total Intake and Output 02/07/24 02/07/24 02/08/24 15:00 23:00 07:00 Intake Total 50 ml 900 ml 1530 ml Output Total 540 ml 450 ml Balance 50 ml 360 ml 1080 ml medications Current Medications Medications Dose Ordered Sig/Ariella Route Start Time Stop Time Status Last Admin Dose Admin Ceftriaxone Sodium 50 ml @ 100 mls/hr DAILY IV 02/03/24 10:00 02/08/24 09:51 100 MLS/HR Dextrose 50 ml UD PRN IV 02/02/24 19:15 Al Hydrox/Mg Hydrox/Simethicone 30 ml Q6HP PRN PO 02/02/24 19:15 Acetaminophen 650 mg Q6HP PRN PO 02/02/24 19:15 02/08/24 02:05 650 MG Ondansetron HCl 4 mg Q4HP PRN IV 02/02/24 19:15 Morphine Sulfate 2 mg Q4HPRN PRN IV 02/02/24 19:15 02/06/24 11:42 2 MG Pantoprazole Sodium 40 mg DAILY IV 02/04/24 10:00 02/08/24 09:51 40 MG Diagnostic Test (Pha) 1 strip ACHS 02/03/24 17:00 02/08/24 11:34 1 STRIP Insulin Human Regular ACHS SC 02/03/24 17:00 02/08/24 11:35 2 UNITS Enteral Nutritional Formula 240 ml BID PO 02/05/24 22:00 02/08/24 09:51 240 ML Doxycycline Hyclate 250 ml @ 125 mls/hr Q12H IV 02/05/24 14:15 02/08/24 13:41 125 MLS/HR Acetylcysteine 200 mg Q8HR NEB 02/05/24 22:00 02/08/24 13:29 200 MG Budesonide 0.5 mg BID NEB 02/05/24 22:00 02/08/24 07:06 0.5 MG Ipratropium [place] 0.5 mg Q6HR NEB 02/06/24 00:00 02/08/24 13:28 0.5 MG Levalbuterol HCl 1.25 mg Q6HR NEB 02/06/24 00:00 02/08/24 13:29 1.25 MG Mupirocin 1 applic BID EACHNOSTRI 02/06/24 22:00 02/11/24 22:00 02/08/24 09:51 1 APPLIC Dextrose/Sodium Chloride 1,000 ml @ 100 mls/hr Q10H IV 02/07/24 10:45 02/08/24 01:30 100 MLS/HR objective GENERAL: Awake, alert, oriented. Morbidly obese. LUNGS: Clear. CARDIOVASCULAR: Heart sounds are good. ABDOMEN: Soft. laboratory and microbiology Laboratory Tests 02/08/24 07:53 02/07/24 04:49 Test 02/08/24 07:53 Range/Units Serum Glucose 152 H 74-106 mg/dL Problem List Syncope, rule out cardiac etiology. NTEMI type II secondary to urosepsis. History of hypertension now with hypotension. Hyperlipidemia. Thrombocytopenia. History of left lower extremity DV. Type 2 diabetes mellitus. Hypothyroidism. Chronic kidney disease. Obesity. Assessment/Plan Continued all current supportive medical care. IV antibiotics as ordered. GI prophylactics. Vasopressors for hemodynamic support. Morphine for pain management. Additional plan as per the hospital course. Critical care time of 45 minutes provided to include time spent evaluation of the patient at bedside, when appropriate patient/family education of diagnosis, treatment plan, review of pertinent medical information and discussion of care with specialty providers and PCP. Dietary Evaluation Review Comments: 1. Continue current diet regime 2. [place] pt's food preferences 3. Consider add nepro bid (840kcal, 38g pro) for increase PO intake Expected Outcomes/Goals: 1. Pt will consume >75% of estimated needs within 3-5 days Plan discussed with: Patient BIBIANA AVILA MD 27, 2024 13:55
--- NOTE | 2024-02-08 23:13 | DVHPN2 ---
Progress Note - Dictate Date Seen: Feb 08, 2024 Medical Necessity Reason Pt with a Central, PICC or Fol: Yes The following are medically ne: Frey Catheter Reason for frey catheter: Strict I&O Subjective Patient seen and examined at bedside. Remains on supplemental oxygen Overnight events reviewed. vital signs Vital Sign Date Time Temp Pulse Resp B/P (MAP) Pulse Ox O2 Delivery O2 Flow Rate FiO2 02/08/24 21:00 98.3 83 18 122/48 (72) 98 98.3 02/08/24 19:33 3.0 32 02/08/24 19:15 Nasal Cannula Total Intake and Output 02/07/24 02/07/24 02/08/24 15:00 23:00 07:00 Intake Total 50 ml 900 ml 1530 ml Output Total 540 ml 450 ml Balance 50 ml 360 ml 1080 ml medications Current Medications Medications Dose Ordered Sig/Ariella Route Start Time Stop Time Status Last Admin Dose Admin Ceftriaxone Sodium 50 ml @ 100 mls/hr DAILY IV 02/03/24 10:00 02/08/24 09:51 100 MLS/HR Dextrose 50 ml UD PRN IV 02/02/24 19:15 Al Hydrox/Mg Hydrox/Simethicone 30 ml Q6HP PRN PO 02/02/24 19:15 Acetaminophen 650 mg Q6HP PRN PO 02/02/24 19:15 02/08/24 17:06 650 MG Ondansetron HCl 4 mg Q4HP PRN IV 02/02/24 19:15 Morphine Sulfate 2 mg Q4HPRN PRN IV 02/02/24 19:15 02/06/24 11:42 2 MG Pantoprazole Sodium 40 mg DAILY IV 02/04/24 10:00 02/08/24 09:51 40 MG Diagnostic Test (Pha) 1 strip ACHS 02/03/24 17:00 02/08/24 22:33 1 STRIP Insulin Human Regular ACHS SC 02/03/24 17:00 02/08/24 22:35 3 UNITS Enteral Nutritional Formula 240 ml BID PO 02/05/24 22:00 02/08/24 22:22 240 ML Doxycycline Hyclate 250 ml @ 125 mls/hr Q12H IV 02/05/24 14:15 02/08/24 13:41 125 MLS/HR Acetylcysteine 200 mg Q8HR NEB 02/05/24 22:00 02/08/24 13:29 200 MG Budesonide 0.5 mg BID NEB 02/05/24 22:00 02/08/24 19:14 0.5 MG Ipratropium [place] 0.5 mg Q6HR NEB 02/06/24 00:00 02/08/24 19:15 0.5 MG Levalbuterol HCl 1.25 mg Q6HR NEB 02/06/24 00:00 02/08/24 19:15 1.25 MG Mupirocin 1 applic BID EACHNOSTRI 02/06/24 22:00 02/11/24 22:00 02/08/24 22:22 1 APPLIC Dextrose/Sodium Chloride 1,000 ml @ 100 mls/hr Q10H IV 02/07/24 10:45 02/08/24 17:06 100 MLS/HR objective Gen.: Patient lying in bed in no apparent distress. On supplemental oxygen. Head: Normocephalic, atraumatic. Eyes: EOMI/PERRLA. Ears: Normal hearing. Normal anatomy. Neck/trachea: Trachea midline, supple. Nose: Normal external anatomy. Mouth: Moist mucous membranes. Chest: Decreased air entry bilaterally. No wheezing or rhonchi. Cardiovascular: Positive S1, positive S2. Regular rate and rhythm. Abdomen: Positive bowel sounds in all 4 quadrants. Soft, non-tender, non- distended. : Deferred. Rectal: Deferred. Skin: Warm, dry. Intact. Extremities: 2+ radial pulses bilaterally. No lower extremity edema. Neuro: Awake, alert, oriented x3. No gross motor or sensory deficits. Cranial nerves II through XII intact. Gait not assessed. laboratory and microbiology Laboratory Tests 02/08/24 07:53 02/07/24 04:49 Test 02/08/24 07:53 Range/Units Serum Glucose 152 H 74-106 mg/dL Assessment/Plan Impression: Acute hypoxic respiratory failure Acute Exacerbation COPD Shock, likely septic due to UTI CHF exacerbation Metabolic acidosis Acute metabolic encephalopathy Hydronephrosis Wheezing H/o DVT LLE Events: Remains on supplemental oxygen, 1 LPM NC Taper O2 as tolerated Continue antibiotics Incentive spirometry Head of bed elevation Aspiration precautions Monitor renal function IV fluids at 100 ml/hr. Poor peripheral access due to vein quality. Continue central line - monitor daily and assess for removal. Continue PT. Labs and imaging reviewed. Rest of plan as noted below. Plan: Supplemental oxygen 1 LPM NC Titrate to keep O2 sats above 92%. Taper O2 as tolerated. Pressors as necessary for hemodynamic support - currently off Titrate to keep mean arterial pressure greater than 65 mmHg. Continue bronchodilators. Continue antibiotics Incentive spirometry HOB elevation Aspiration precautions Monitor renal function. Monitor electrolytes. Supplement as necessary. Monitor ins and outs. DVT prophylaxis. Prognosis: Poor given patient's multiple co-morbidities. Rest of plan per hospitalist and other consultants. Thank you Dr. Isabel Dey MD, for allowing me to participate in this patient's care. Further recommendations will depend on the patient's clinical course. Please do not hesitate to contact me if you have any questions or concerns. This medical document was created using an electronic medical record system with [employer] dictation system. Although these documentations are being carefully reviewed, there may still be some phonetic and typographical changes. The errors are purely typographical, due to imperfection on the software program, and do not reflect any compromise in the patient's medical care. Dietary Evaluation Review Comments: 1. Continue current diet regime 2. [place] pt's food preferences 3. Consider add nepro bid (840kcal, 38g pro) for increase PO intake Expected Outcomes/Goals: 1. Pt will consume >75% of estimated needs within 3-5 days Plan discussed with: Patient, Other (RN Summer) IRIS LOREDO MD Feb 08, 2024 23:13
[2024-02-09] VITALS (17 sets, daily range): BP systolic 107–125; BP diastolic 47–65; PULSE 78–91; RESP 14–19; TEMP 97.9–98.5; O2SAT 95–100
[2024-02-09 06:04] LABS: Basophils # (auto) 0 10 ^3/uL (0-0.2); Eosinophils # (auto) 0.2 10 ^3/uL (0-0.8); Hemoglobin 8.6 g/dL (12.2-16.2); Monocytes # (auto) 0.4 10 ^3/uL (0-1.3); Neutrophils # (auto) 5.8 10 ^3/uL (1.6-8.6); White Blood Cell 7.1 10^3/uL (4.4-10.8)
[2024-02-09 06:06] LABS: Basophils % (auto) 0.3 % (0.0-2.0); Eosinophils % (auto) 2.4 % (0.0-7.0); Hematocrit 25.5 % (36.0-46.0); Lymphocytes # (auto) 0.7 10 ^3/uL (0.4-5.4); Lymphocytes % (auto) 10.3 % (10.0-50.0); Mean Corpuscular Hemoglobin 31.3 pg (28.0-32.0); Mean Corpuscular Hgb Conc. 33.7 g/dL (32.0-36.0); Mean Corpuscular Volume 92.9 fL (80.0-100.0); Monocytes % (auto) 5.8 % (0.0-12.0); Neutrophils % (auto) 81.2 % (37.0-80.0); Platelet Count (auto) 63 10^3/uL (140-450); Red Blood Cells 2.75 10^6/uL (4.0-5.20); Red Cell Distribution Width 18.3 % (11.8-14.3)
[2024-02-09 06:26] LABS: Alanine Aminotransferase 17 U/L (7-40); Anion Gap 9 (5-15); Aspartate Aminotransferase 18 U/L (13-40); Carbon Dioxide 24 mmol/L (20-31); Sodium 145 mmol/L (136-145)
[2024-02-09 06:28] LABS: Bilirubin, Total 0.5 mg/dL (0.2-1.0)
[2024-02-09 06:50] LABS: Albumin 2.5 g/dL (3.2-4.8); Alkaline Phosphatase 181 U/L (46-116); Blood Urea Nitrogen 24 mg/dL (9-23); Calcium 8.1 mg/dL (8.7-10.4); Chloride 112 mmol/L (98-107); Glucose 141 mg/dL (74-106); Magnesium 1.6 mg/dL (1.6-2.6); Total Protein 4.9 g/dL (5.7-8.2)
--- NOTE | 2024-02-09 12:31 | DVHPN2 ---
Subjective Complains of weakness Platelets are better as 63 Hemoglobin 8.6 The white count is better The kidney function is stable Changes from previous H/P or p: Changes Eyes: No Pain, No Vision change, No Conjunctivae inflammation, No Eyelid inflammation, No Other, No Redness ENT: No Ear pain, No Ear discharge, No Nose pain, No Nose discharge, No Nose congestion, No Mouth pain, No Mouth swelling, No Throat pain, No Throat swelling, No Other Cardiovascular: Chest Pain, Palpitations Respiratory: Cough, Shortness of breath Gastrointestinal: No Nausea, No Vomiting, No Abdominal Pain, No Diarrhea, No Constipation, No Melena, No Hematochezia, No Other Genitourinary: No Dysuria, No Frequency, No Incontinence, No Hematuria, No Retention, No Other Musculoskeletal: No other, No neck pain, No shoulder pain, No arm pain, No back pain, No hand pain, No leg pain, No foot pain Skin: No Rash, No Lesions, No Jaundice, No Bruising, No Other Objective Vitals Vital Signs Date Time Temp Pulse Resp B/P (MAP) Pulse Ox O2 Delivery O2 Flow Rate FiO2 02/09/24 08:39 98.1 79 15 119/54 (75) 95 98.1 02/09/24 07:40 Nasal Cannula* 1 24 Intake/Output Intake and Output 02/09/24 07:00 Intake Total 1800 ml Output Total 700 ml Balance 1100 ml Intake Oral 1250 ml IV Total 550 ml Output Urine Total 700 ml # Voids 6 # Bowel Movements 1 General Appearance: Alert, Other (somenolent) Lungs: Clear to auscultation, Normal air movement Cardiovascular: Regular rate, Normal S1, Normal S2 Abdomen: Normal bowel sounds, Soft, No tenderness Extremities: No edema Medications Current Medications Medications Dose Ordered Sig/Ariella Route Start Time Stop Time Status Last Admin Dose Admin Ceftriaxone Sodium 50 ml @ 100 mls/hr DAILY IV 02/03/24 10:00 02/09/24 09:10 100 MLS/HR Dextrose 50 ml UD PRN IV 02/02/24 19:15 Al Hydrox/Mg Hydrox/Simethicone 30 ml Q6HP PRN PO 02/02/24 19:15 Acetaminophen 650 mg Q6HP PRN PO 02/02/24 19:15 02/09/24 11:53 650 MG Ondansetron HCl 4 mg Q4HP PRN IV 02/02/24 19:15 Morphine Sulfate 2 mg Q4HPRN PRN IV 02/02/24 19:15 02/06/24 11:42 2 MG Pantoprazole Sodium 40 mg DAILY IV 02/04/24 10:00 02/09/24 09:10 40 MG Diagnostic Test (Pha) 1 strip ACHS 02/03/24 17:00 02/09/24 11:18 1 STRIP Insulin Human Regular ACHS SC 02/03/24 17:00 02/09/24 11:54 2 UNITS Enteral Nutritional Formula 240 ml BID PO 02/05/24 22:00 02/09/24 09:11 240 ML Doxycycline Hyclate 250 ml @ 125 mls/hr Q12H IV 02/05/24 14:15 02/09/24 02:33 125 MLS/HR Acetylcysteine 200 mg Q8HR NEB 02/05/24 22:00 02/09/24 07:07 200 MG Budesonide 0.5 mg BID NEB 02/05/24 22:00 02/09/24 07:07 0.5 MG Ipratropium [place] 0.5 mg Q6HR NEB 02/06/24 00:00 02/09/24 07:07 0.5 MG Levalbuterol HCl 1.25 mg Q6HR NEB 02/06/24 00:00 02/09/24 07:07 1.25 MG Mupirocin 1 applic BID EACHNOSTRI 02/06/24 22:00 02/11/24 22:00 02/09/24 09:11 1 APPLIC Dextrose/Sodium Chloride 1,000 ml @ 100 mls/hr Q10H IV 02/07/24 10:45 02/09/24 02:35 100 MLS/HR Laboratory Results Laboratory Tests 02/09/24 04:52 Chemistry Test 02/09/24 04:52 Albumin 2.5 g/dL (3.2-4.8) L Calcium Level 8.1 mg/dL (8.7-10.4) L Magnesium Level 1.6 mg/dL (1.6-2.6) Total Protein 4.9 g/dL (5.7-8.2) L LFT Test 02/09/24 04:52 Alanine Aminotransferase (ALT) 17 U/L (7-40) Alkaline Phosphatase 181 U/L (46-116) H Aspartate Amino Transferase (AST) 18 U/L (13-40) Total Bilirubin 0.5 mg/dL (0.2-1.0) Urinalysis Test 02/02/24 16:00 02/07/24 13:56 Urine Amorphous Crystals Few /hpf (None Seen) Urine Color Yellow (Yellow) Urine Clarity Turbid (Clear) H Urine pH 5.5 (5.0-9.0) Urine Specific [place] 1.018 (1.001-1.035) Urine Protein 1+ (Negative) H Urine Ketones Negative (Negative) Urine Blood 3+ /uL (Negative) H Urine Nitrite Negative (Negative) Urine Bilirubin Negative (Negative) Urine Urobilinogen Normal mg/dL (Negative) Urine Leukocyte Esterase 3+ /uL (Negative) Urine RBC 98 /hpf (0 - 4) Urine WBC 126 /hpf (0 - 5) Urine Squamous Epithelial Cells Few /hpf (<5) Urine Bacteria Few /hpf (None Seen) H Urine Mucus Few (None Seen) Urine Creatinine 70.94 mg/dL (30.0-125.0) Urine Protein/Creatinine Ratio 1.80 Urine Sodium 60 mmol/L (40-220) Urine Glucose Normal mg/dL (Normal) Urine Total Protein 127.8 mg/dL (1-14) H Microbiology Microbiology Date/Time Source Procedure Growth Status 02/05/24 15:43 Nose MRSA Screen - Final Methicillin Resistant S.aureus Complete 02/05/24 13:05 Blood Blood Culture - Preliminary NO GROWTH AFTER 72 HOURS OF INCUBATION. Resulted 02/02/24 16:00 Urine - [place] Urine Culture - Final Klebsiella pneumoniae Complete Assessment/Plan Assessment/Plan МАРИЯ Intractable N/V/D UTI h/o DVT LLE Hypothyroidism DM2 Dyslipidemia Thrombocytopenia PLAN: IV fluids Vasopressors IV antibiotics: Rocephin and Flagyl Protonix Discussed with daughter over the phone DNR DC Lasix DC Metoprolol DC Midodrine 02/04/2024: Continue vasopressors as needed Continue Rocephin IV Continue IV fluids Add sodium bicarbonate drip to correct the metabolic acidosis Nephrology consultation Avoid NSAIDs and contrast and Shlomo or arbs DNR Discussed with the family at the bedside 02/05/2024: Continue Levophed drip Continue IV Rocephin Continue IV fluids with D5 NS with sodium bicarbonate Nephrology consult DNR Add doxycycline IV 02/06/24: More alert Replace K+ and Mg Check BLE venous doppler Continue IV fluids with sodium bicarbonate Levophed drip as needed IV Rocephin and doxycycline DNR Kidney ultrasound UTI with Klebsiella pneumoniae 02/07/2024: Kidney function is improving Continue IV fluids Swallow eval Start diet when the swallow eval is done She is much more alert and oriented Physical therapy Thrombocytopenia due to sepsis Sepsis Order home health physical therapy Hypernatremia: Change IV fluids to half NS, starts p.o. intake Discussed with the family at the bedside 02/08/2024: Physical therapy today Out of bed as tolerated Plan to go home in 1-2 days once she is out of bed Discontinue the central line Keep the [place] catheter in for now 02/09/2024: Continue physical therapy Continue to monitor the thrombocytopenia Continue Rocephin and doxycycline Discontinue the IV fluids Plan discussed with: Patient Date of Service: Feb 09, 2024 Billing Provider: XAVIER AIKEN MD Common Visit Codes: NOT BILLABLE XAVIER AIKEN MD Feb 09, 2024 12:30
--- NOTE | 2024-02-09 20:28 | DVHPN2 ---
Progress Note - Dictate Date Seen: Feb 09, 2024 Medical Necessity Reason Pt with a Central, PICC or Fol: Yes The following are medically ne: Frey Catheter Reason for frey catheter: Strict I&O Subjective Patient seen and examined at bedside. Remains on supplemental oxygen Overnight events reviewed. vital signs Vital Sign Date Time Temp Pulse Resp B/P (MAP) Pulse Ox O2 Delivery O2 Flow Rate FiO2 02/09/24 19:55 85 18 100 02/09/24 19:44 Nasal Cannula* 2 02/09/24 17:10 97.9 111/57 (75) 97.9 Total Intake and Output 02/08/24 02/08/24 02/09/24 15:00 23:00 07:00 Intake Total 50 ml 950 ml 800 ml Output Total 700 ml Balance 50 ml 950 ml 100 ml medications Current Medications Medications Dose Ordered Sig/Ariella Route Start Time Stop Time Status Last Admin Dose Admin Ceftriaxone Sodium 50 ml @ 100 mls/hr DAILY IV 02/03/24 10:00 02/09/24 09:10 100 MLS/HR Dextrose 50 ml UD PRN IV 02/02/24 19:15 Al Hydrox/Mg Hydrox/Simethicone 30 ml Q6HP PRN PO 02/02/24 19:15 Acetaminophen 650 mg Q6HP PRN PO 02/02/24 19:15 02/09/24 11:53 650 MG Ondansetron HCl 4 mg Q4HP PRN IV 02/02/24 19:15 Morphine Sulfate 2 mg Q4HPRN PRN IV 02/02/24 19:15 02/06/24 11:42 2 MG Pantoprazole Sodium 40 mg DAILY IV 02/04/24 10:00 02/09/24 09:10 40 MG Diagnostic Test (Pha) 1 strip ACHS 02/03/24 17:00 02/09/24 16:57 1 STRIP Insulin Human Regular ACHS SC 02/03/24 17:00 02/09/24 17:24 3 UNITS Enteral Nutritional Formula 240 ml BID PO 02/05/24 22:00 02/09/24 09:11 240 ML Doxycycline Hyclate 250 ml @ 125 mls/hr Q12H IV 02/05/24 14:15 02/09/24 13:36 125 MLS/HR Acetylcysteine 200 mg Q8HR NEB 02/05/24 22:00 02/09/24 13:46 200 MG Budesonide 0.5 mg BID NEB 02/05/24 22:00 02/09/24 19:46 0.5 MG Ipratropium [place] 0.5 mg Q6HR NEB 02/06/24 00:00 02/09/24 19:46 0.5 MG Levalbuterol HCl 1.25 mg Q6HR NEB 02/06/24 00:00 02/09/24 19:45 1.25 MG Mupirocin 1 applic BID EACHNOSTRI 02/06/24 22:00 02/11/24 22:00 02/09/24 09:11 1 APPLIC objective Gen.: Patient lying in bed in no apparent distress. On supplemental oxygen. Head: Normocephalic, atraumatic. Eyes: EOMI/PERRLA. Ears: Normal hearing. Normal anatomy. Neck/trachea: Trachea midline, supple. Nose: Normal external anatomy. Mouth: Moist mucous membranes. Chest: Decreased air entry bilaterally. No wheezing or rhonchi. Cardiovascular: Positive S1, positive S2. Regular rate and rhythm. Abdomen: Positive bowel sounds in all 4 quadrants. Soft, non-tender, non- distended. : Deferred. Rectal: Deferred. Skin: Warm, dry. Intact. Extremities: 2+ radial pulses bilaterally. No lower extremity edema. Neuro: Awake, alert, oriented x3. No gross motor or sensory deficits. Cranial nerves II through XII intact. Gait not assessed. laboratory and microbiology Laboratory Tests 02/09/24 04:52 Test 02/09/24 04:52 Range/Units Serum Glucose 141 H 74-106 mg/dL Assessment/Plan Impression: Acute hypoxic respiratory failure Acute Exacerbation COPD Shock, likely septic due to UTI CHF exacerbation Metabolic acidosis Acute metabolic encephalopathy Hydronephrosis Wheezing H/o DVT LLE Events: Remains on supplemental oxygen, 2 LPM NC Taper O2 as tolerated Continue bronchodilators Continue antibiotics Incentive spirometry Head of bed elevation Aspiration precautions Continue PT. Disposition per hospitalist. Labs and imaging reviewed. Rest of plan as noted below. Plan: Supplemental oxygen Titrate to keep O2 sats above 92%. Pressors as necessary for hemodynamic support - currently off Titrate to keep mean arterial pressure greater than 65 mmHg. Continue bronchodilators. Continue antibiotics Incentive spirometry HOB elevation Aspiration precautions Monitor renal function. Monitor electrolytes. Supplement as necessary. Monitor ins and outs. DVT prophylaxis. Prognosis: Poor given patient's multiple co-morbidities. Rest of plan per hospitalist and other consultants. Thank you Dr. Isabel Dey MD, for allowing me to participate in this patient's care. Further recommendations will depend on the patient's clinical course. Please do not hesitate to contact me if you have any questions or concerns. This medical document was created using an electronic medical record system with [employer] dictation system. Although these documentations are being carefully reviewed, there may still be some phonetic and typographical changes. The errors are purely typographical, due to imperfection on the software program, and do not reflect any compromise in the patient's medical care. Dietary Evaluation Review Comments: 1. Continue current diet regime 2. [place] pt's food preferences 3. Consider add nepro bid (840kcal, 38g pro) for increase PO intake Expected Outcomes/Goals: 1. Pt will consume >75% of estimated needs within 3-5 days Plan discussed with: Patient, Other (MAYCOL Wang) IRSI LOREDO MD Feb 09, 2024 20:28
--- NOTE | 2024-02-09 21:00 | DVHPN2 ---
Progress Note - Dictate Date Seen: Feb 09, 2024 Medical Necessity Reason Pt with a Central, PICC or Fol: Yes The following are medically ne: Frey Catheter Reason for frey catheter: Strict I&O Subjective Patient was seen and evaluated in follow up. Patient complains of generalized pain and a productive cough. HGB 8.6, HCT 25.5, CL 112, BUN 24, GLUC 145, CA 8.1. vital signs Vital Sign Date Time Temp Pulse Resp B/P (MAP) Pulse Ox O2 Delivery O2 Flow Rate FiO2 02/09/24 08:39 98.1 79 15 119/54 (75) 95 98.1 02/09/24 07:40 Nasal Cannula* 1 24 Total Intake and Output 02/08/24 02/08/24 02/09/24 15:00 23:00 07:00 Intake Total 50 ml 950 ml 800 ml Output Total 700 ml Balance 50 ml 950 ml 100 ml medications Current Medications Medications Dose Ordered Sig/Ariella Route Start Time Stop Time Status Last Admin Dose Admin Ceftriaxone Sodium 50 ml @ 100 mls/hr DAILY IV 02/03/24 10:00 02/09/24 09:10 100 MLS/HR Dextrose 50 ml UD PRN IV 02/02/24 19:15 Al Hydrox/Mg Hydrox/Simethicone 30 ml Q6HP PRN PO 02/02/24 19:15 Acetaminophen 650 mg Q6HP PRN PO 02/02/24 19:15 02/09/24 02:26 650 MG Ondansetron HCl 4 mg Q4HP PRN IV 02/02/24 19:15 Morphine Sulfate 2 mg Q4HPRN PRN IV 02/02/24 19:15 02/06/24 11:42 2 MG Pantoprazole Sodium 40 mg DAILY IV 02/04/24 10:00 02/09/24 09:10 40 MG Diagnostic Test (Pha) 1 strip ACHS 02/03/24 17:00 02/09/24 11:18 1 STRIP Insulin Human Regular ACHS SC 02/03/24 17:00 02/09/24 06:49 2 UNITS Enteral Nutritional Formula 240 ml BID PO 02/05/24 22:00 02/09/24 09:11 240 ML Doxycycline Hyclate 250 ml @ 125 mls/hr Q12H IV 02/05/24 14:15 02/09/24 02:33 125 MLS/HR Acetylcysteine 200 mg Q8HR NEB 02/05/24 22:00 02/09/24 07:07 200 MG Budesonide 0.5 mg BID NEB 02/05/24 22:00 02/09/24 07:07 0.5 MG Ipratropium [place] 0.5 mg Q6HR NEB 02/06/24 00:00 02/09/24 07:07 0.5 MG Levalbuterol HCl 1.25 mg Q6HR NEB 02/06/24 00:00 02/09/24 07:07 1.25 MG Mupirocin 1 applic BID EACHNOSTRI 02/06/24 22:00 02/11/24 22:00 02/09/24 09:11 1 APPLIC Dextrose/Sodium Chloride 1,000 ml @ 100 mls/hr Q10H IV 02/07/24 10:45 02/09/24 02:35 100 MLS/HR objective GENERAL: Awake, alert, oriented. Morbidly obese. LUNGS: Clear. CARDIOVASCULAR: Heart sounds are good. ABDOMEN: Soft. laboratory and microbiology Laboratory Tests 02/09/24 04:52 Test 02/09/24 04:52 Range/Units Serum Glucose 141 H 74-106 mg/dL Problem List Syncope, rule out cardiac etiology. NTEMI type II secondary to urosepsis. History of hypertension now with hypotension. Hyperlipidemia. Thrombocytopenia. History of left lower extremity DV. Type 2 diabetes mellitus. Hypothyroidism. Chronic kidney disease. Obesity. Assessment/Plan Continued all current supportive medical care. IV antibiotics as ordered. GI prophylactics. Vasopressors for hemodynamic support. Morphine for pain management. Additional plan as per the hospital course. Critical care time of 45 minutes provided to include time spent evaluation of the patient at bedside, when appropriate patient/family education of diagnosis, treatment plan, review of pertinent medical information and discussion of care with specialty providers and PCP. Dietary Evaluation Review Comments: 1. Continue current diet regime 2. [place] pt's food preferences 3. Consider add nepro bid (840kcal, 38g pro) for increase PO intake Expected Outcomes/Goals: 1. Pt will consume >75% of estimated needs within 3-5 days Plan discussed with: Patient BIBIANA AVILA MD Feb 09, 2024 11:35
[2024-02-10] VITALS (14 sets, daily range): BP systolic 127–136; BP diastolic 47–58; PULSE 78–107; RESP 14–20; TEMP 97.9–98.9; O2SAT 95–100
[2024-02-10 06:17] LABS: Basophils # (auto) 0 10 ^3/uL (0-0.2); Basophils % (auto) 0.2 % (0.0-2.0); Eosinophils # (auto) 0.1 10 ^3/uL (0-0.8); Eosinophils % (auto) 1.9 % (0.0-7.0); Hematocrit 25.9 % (36.0-46.0); Hemoglobin 8.6 g/dL (12.2-16.2); Lymphocytes # (auto) 0.9 10 ^3/uL (0.4-5.4); Lymphocytes % (auto) 14.2 % (10.0-50.0); Mean Corpuscular Hgb Conc. 33.3 g/dL (32.0-36.0); Mean Corpuscular Volume 93.3 fL (80.0-100.0); Monocytes # (auto) 0.4 10 ^3/uL (0-1.3); Monocytes % (auto) 6.1 % (0.0-12.0); Neutrophils # (auto) 4.8 10 ^3/uL (1.6-8.6); Neutrophils % (auto) 77.6 % (37.0-80.0); Platelet Count (auto) 72 10^3/uL (140-450); Red Blood Cells 2.78 10^6/uL (4.0-5.20); Red Cell Distribution Width 18.1 % (11.8-14.3); White Blood Cell 6.2 10^3/uL (4.4-10.8)
[2024-02-10 06:26] LABS: Anion Gap 8 (5-15); Carbon Dioxide 25 mmol/L (20-31); Potassium 3.7 mmol/L (3.5-5.1); Sodium 143 mmol/L (136-145)
[2024-02-10 06:32] LABS: BUN/Creatinine Ratio 22.4 (10.0-20.0); Blood Urea Nitrogen 22 mg/dL (9-23)
[2024-02-10 06:36] LABS: Calcium 8.6 mg/dL (8.7-10.4); Chloride 110 mmol/L (98-107); Glucose 156 mg/dL (74-106)
--- NOTE | 2024-02-10 11:59 | DVHPN2 ---
Subjective The patient is seen and examined at bedside. No complaint today. Very tired, the patient did not get out of bed and ambulate today. She claimed that she be very tired Reviewed: Care Plan, H&P, Labs, Previous Orders, Radiology Changes from previous H/P or p: No Changes Eyes: No Pain, No Vision change, No Conjunctivae inflammation, No Eyelid inflammation, No Other, No Redness ENT: No Ear pain, No Ear discharge, No Nose pain, No Nose discharge, No Nose congestion, No Mouth pain, No Mouth swelling, No Throat pain, No Throat swelling, No Other Cardiovascular: Chest Pain, Palpitations Respiratory: Cough, Shortness of breath Gastrointestinal: No Nausea, No Vomiting, No Abdominal Pain, No Diarrhea, No Constipation, No Melena, No Hematochezia, No Other Genitourinary: No Dysuria, No Frequency, No Incontinence, No Hematuria, No Retention, No Other Musculoskeletal: No other, No neck pain, No shoulder pain, No arm pain, No back pain, No hand pain, No leg pain, No foot pain Skin: No Rash, No Lesions, No Jaundice, No Bruising, No Other Objective Vitals Vital Signs Date Time Temp Pulse Resp B/P (MAP) Pulse Ox O2 Delivery O2 Flow Rate FiO2 02/10/24 09:00 97.9 85 17 129/49 (75) 95 97.9 02/10/24 07:19 Nasal Cannula 2.0 02/09/24 20:00 24 Intake/Output Intake and Output 02/10/24 07:00 Intake Total 1350 ml Output Total 1800 ml Balance -450 ml Intake Oral 1050 ml IV Total 300 ml Output Urine Total 1800 ml Stool Total 0 ml # Bowel Movements 1 General Appearance: Alert, Other (somenolent) Lungs: Clear to auscultation, Normal air movement Cardiovascular: Regular rate, Normal S1, Normal S2 Abdomen: Normal bowel sounds, Soft, No tenderness Extremities: No edema Medications Current Medications Medications Dose Ordered Sig/Ariella Route Start Time Stop Time Status Last Admin Dose Admin Ceftriaxone Sodium 50 ml @ 100 mls/hr DAILY IV 02/03/24 10:00 02/10/24 10:00 100 MLS/HR Dextrose 50 ml UD PRN IV 02/02/24 19:15 Al Hydrox/Mg Hydrox/Simethicone 30 ml Q6HP PRN PO 02/02/24 19:15 Acetaminophen 650 mg Q6HP PRN PO 02/02/24 19:15 02/09/24 22:34 650 MG Ondansetron HCl 4 mg Q4HP PRN IV 02/02/24 19:15 Morphine Sulfate 2 mg Q4HPRN PRN IV 02/02/24 19:15 02/06/24 11:42 2 MG Pantoprazole Sodium 40 mg DAILY IV 02/04/24 10:00 02/10/24 10:00 40 MG Diagnostic Test (Pha) 1 strip ACHS 02/03/24 17:00 02/10/24 06:03 1 STRIP Insulin Human Regular ACHS SC 02/03/24 17:00 02/10/24 06:10 2 UNITS Enteral Nutritional Formula 240 ml BID PO 02/05/24 22:00 02/10/24 09:52 240 ML Doxycycline Hyclate 250 ml @ 125 mls/hr Q12H IV 02/05/24 14:15 02/10/24 02:08 125 MLS/HR Acetylcysteine 200 mg Q8HR NEB 02/05/24 22:00 02/10/24 07:18 200 MG Budesonide 0.5 mg BID NEB 02/05/24 22:00 02/10/24 07:19 0.5 MG Ipratropium [place] 0.5 mg Q6HR NEB 02/06/24 00:00 02/10/24 07:18 0.5 MG Levalbuterol HCl 1.25 mg Q6HR NEB 02/06/24 00:00 02/10/24 07:18 1.25 MG Mupirocin 1 applic BID EACHNOSTRI 02/06/24 22:00 02/11/24 22:00 02/10/24 10:37 1 APPLIC Laboratory Results Laboratory Tests 02/10/24 04:29 Chemistry Test 02/10/24 04:29 Calcium Level 8.6 mg/dL (8.7-10.4) L Urinalysis Test 02/02/24 16:00 02/07/24 13:56 Urine Amorphous Crystals Few /hpf (None Seen) Urine Color Yellow (Yellow) Urine Clarity Turbid (Clear) H Urine pH 5.5 (5.0-9.0) Urine Specific [place] 1.018 (1.001-1.035) Urine Protein 1+ (Negative) H Urine Ketones Negative (Negative) Urine Blood 3+ /uL (Negative) H Urine Nitrite Negative (Negative) Urine Bilirubin Negative (Negative) Urine Urobilinogen Normal mg/dL (Negative) Urine Leukocyte Esterase 3+ /uL (Negative) Urine RBC 98 /hpf (0 - 4) Urine WBC 126 /hpf (0 - 5) Urine Squamous Epithelial Cells Few /hpf (<5) Urine Bacteria Few /hpf (None Seen) H Urine Mucus Few (None Seen) Urine Creatinine 70.94 mg/dL (30.0-125.0) Urine Protein/Creatinine Ratio 1.80 Urine Sodium 60 mmol/L (40-220) Urine Glucose Normal mg/dL (Normal) Urine Total Protein 127.8 mg/dL (1-14) H Microbiology Microbiology Date/Time Source Procedure Growth Status 02/05/24 15:43 Nose MRSA Screen - Final Methicillin Resistant S.aureus Complete 02/05/24 13:05 Blood Blood Culture - Preliminary NO GROWTH AFTER 72 HOURS OF INCUBATION. Resulted 02/02/24 16:00 Urine - [place] Urine Culture - Final Klebsiella pneumoniae Complete Labs and/or images reviewed: Labs reviewed by me Assessment/Plan Assessment/Plan МАРИЯ Intractable N/V/D UTI h/o DVT LLE Hypothyroidism DM2 Dyslipidemia Thrombocytopenia UTI with Klebsiella pneumoniae Sepsis Electrolyte imbalance with hypokalemia and hypo magnesia Plan: Continuing current management. Continuing with IV antibiotic Rocephin and doxycycline Continuing sliding scale insulin Continuing to monitor kidney function Encouraged the patient to be out of bed and ambulate Replace electrolytes as needed Continuing Zofran p.r.n. Plan discussed with: Patient Date of Service: Feb 10, 2024 Billing Provider: BABS SMITH MD Common Visit Codes: [id number] INP/OBS CARE(HIGH) BABS SMITH MD Feb 10, 2024 11:59
--- NOTE | 2024-02-10 19:31 | DVHPN2 ---
Progress Note - Dictate Date Seen: Feb 10, 2024 Medical Necessity Reason Pt with a Central, PICC or Fol: Yes The following are medically ne: Frey Catheter Reason for frey catheter: Strict I&O Subjective Patient was seen and evaluated in follow up. Patient is complaining of back and neck pain. HGB 8.6, HCT 25.9, GLUC 176. vital signs Vital Sign Date Time Temp Pulse Resp B/P (MAP) Pulse Ox O2 Delivery O2 Flow Rate FiO2 02/10/24 09:00 97.9 85 17 129/49 (75) 95 97.9 02/10/24 07:19 Nasal Cannula 2.0 02/09/24 20:00 24 Total Intake and Output 02/09/24 02/09/24 02/10/24 15:00 23:00 07:00 Intake Total 50 ml 850 ml 450 ml Output Total 900 ml 900 ml Balance 50 ml -50 ml -450 ml medications Current Medications Medications Dose Ordered Sig/Ariella Route Start Time Stop Time Status Last Admin Dose Admin Ceftriaxone Sodium 50 ml @ 100 mls/hr DAILY IV 02/03/24 10:00 02/10/24 10:00 100 MLS/HR Dextrose 50 ml UD PRN IV 02/02/24 19:15 Al Hydrox/Mg Hydrox/Simethicone 30 ml Q6HP PRN PO 02/02/24 19:15 Acetaminophen 650 mg Q6HP PRN PO 02/02/24 19:15 02/09/24 22:34 650 MG Ondansetron HCl 4 mg Q4HP PRN IV 02/02/24 19:15 Morphine Sulfate 2 mg Q4HPRN PRN IV 02/02/24 19:15 02/06/24 11:42 2 MG Pantoprazole Sodium 40 mg DAILY IV 02/04/24 10:00 02/10/24 10:00 40 MG Diagnostic Test (Pha) 1 strip ACHS 02/03/24 17:00 02/10/24 11:30 1 STRIP Insulin Human Regular ACHS SC 02/03/24 17:00 02/10/24 12:19 3 UNITS Enteral Nutritional Formula 240 ml BID PO 02/05/24 22:00 02/10/24 09:52 240 ML Doxycycline Hyclate 250 ml @ 125 mls/hr Q12H IV 02/05/24 14:15 02/10/24 02:08 125 MLS/HR Acetylcysteine 200 mg Q8HR NEB 02/05/24 22:00 02/10/24 07:18 200 MG Budesonide 0.5 mg BID NEB 02/05/24 22:00 02/10/24 07:19 0.5 MG Ipratropium [place] 0.5 mg Q6HR NEB 02/06/24 00:00 02/10/24 07:18 0.5 MG Levalbuterol HCl 1.25 mg Q6HR NEB 02/06/24 00:00 02/10/24 07:18 1.25 MG Mupirocin 1 applic BID EACHNOSTRI 02/06/24 22:00 02/11/24 22:00 02/10/24 10:37 1 APPLIC objective GENERAL: Awake, alert, oriented. Morbidly obese. LUNGS: Clear. CARDIOVASCULAR: Heart sounds are good. ABDOMEN: Soft. laboratory and microbiology Laboratory Tests 02/10/24 04:29 Test 02/10/24 04:29 Range/Units Serum Glucose 156 H 74-106 mg/dL Problem List Syncope, rule out cardiac etiology. NTEMI type II secondary to urosepsis. History of hypertension now with hypotension. Hyperlipidemia. Thrombocytopenia. History of left lower extremity DV. Type 2 diabetes mellitus. Hypothyroidism. Chronic kidney disease. Obesity. Assessment/Plan Continued all current supportive medical care. IV antibiotics as ordered. GI prophylactics. Morphine for pain management. Additional plan as per the hospital course. Dietary Evaluation Review Comments: 1. Continue current diet regime 2. [place] pt's food preferences 3. Consider add nepro bid (840kcal, 38g pro) for increase PO intake Expected Outcomes/Goals: 1. Pt will consume >75% of estimated needs within 3-5 days Plan discussed with: Patient BIBIANA AVILA MD Feb 10, 2024 12:23
--- NOTE | 2024-02-10 23:00 | DVHPN2 ---
Progress Note - Dictate Date Seen: Feb 10, 2024 Medical Necessity Reason Pt with a Central, PICC or Fol: Yes The following are medically ne: Frey Catheter Reason for frey catheter: Strict I&O Subjective Patient seen and examined at bedside. Remains on supplemental oxygen Overnight events reviewed. vital signs Vital Sign Date Time Temp Pulse Resp B/P (MAP) Pulse Ox O2 Delivery O2 Flow Rate FiO2 02/10/24 22:08 98.9 104 18 130/51 (77) 99 98.9 02/10/24 19:51 Room Air* 0 21 Total Intake and Output 02/09/24 02/09/24 02/10/24 15:00 23:00 07:00 Intake Total 50 ml 850 ml 450 ml Output Total 900 ml 900 ml Balance 50 ml -50 ml -450 ml medications Current Medications Medications Dose Ordered Sig/Ariella Route Start Time Stop Time Status Last Admin Dose Admin Ceftriaxone Sodium 50 ml @ 100 mls/hr DAILY IV 02/03/24 10:00 02/10/24 10:00 100 MLS/HR Dextrose 50 ml UD PRN IV 02/02/24 19:15 Al Hydrox/Mg Hydrox/Simethicone 30 ml Q6HP PRN PO 02/02/24 19:15 Acetaminophen 650 mg Q6HP PRN PO 02/02/24 19:15 02/10/24 17:59 650 MG Ondansetron HCl 4 mg Q4HP PRN IV 02/02/24 19:15 Morphine Sulfate 2 mg Q4HPRN PRN IV 02/02/24 19:15 02/06/24 11:42 2 MG Pantoprazole Sodium 40 mg DAILY IV 02/04/24 10:00 02/10/24 10:00 40 MG Diagnostic Test (Pha) 1 strip ACHS 02/03/24 17:00 02/10/24 21:45 1 STRIP Insulin Human Regular ACHS SC 02/03/24 17:00 02/10/24 21:48 2 UNITS Enteral Nutritional Formula 240 ml BID PO 02/05/24 22:00 02/10/24 21:44 240 ML Doxycycline Hyclate 250 ml @ 125 mls/hr Q12H IV 02/05/24 14:15 02/10/24 14:36 125 MLS/HR Acetylcysteine 200 mg Q8HR NEB 02/05/24 22:00 02/10/24 19:51 200 MG Budesonide 0.5 mg BID NEB 02/05/24 22:00 02/10/24 19:51 0.5 MG Ipratropium [place] 0.5 mg Q6HR NEB 02/06/24 00:00 02/10/24 19:51 0.5 MG Levalbuterol HCl 1.25 mg Q6HR NEB 02/06/24 00:00 02/10/24 19:51 1.25 MG Mupirocin 1 applic BID EACHNOSTRI 02/06/24 22:00 02/11/24 22:00 02/10/24 21:43 1 APPLIC objective Gen.: Patient lying in bed in no apparent distress. On supplemental oxygen. Head: Normocephalic, atraumatic. Eyes: EOMI/PERRLA. Ears: Normal hearing. Normal anatomy. Neck/trachea: Trachea midline, supple. Nose: Normal external anatomy. Mouth: Moist mucous membranes. Chest: Decreased air entry bilaterally. No wheezing or rhonchi. Cardiovascular: Positive S1, positive S2. Regular rate and rhythm. Abdomen: Positive bowel sounds in all 4 quadrants. Soft, non-tender, non- distended. : Deferred. Rectal: Deferred. Skin: Warm, dry. Intact. Extremities: 2+ radial pulses bilaterally. No lower extremity edema. Neuro: Awake, alert, oriented x3. No gross motor or sensory deficits. Cranial nerves II through XII intact. Gait not assessed. laboratory and microbiology Laboratory Tests 02/10/24 04:29 Test 02/10/24 04:29 Range/Units Serum Glucose 156 H 74-106 mg/dL Assessment/Plan Impression: Acute hypoxic respiratory failure Acute Exacerbation COPD Shock, likely septic due to UTI CHF exacerbation Metabolic acidosis Acute metabolic encephalopathy Hydronephrosis Wheezing H/o DVT LLE Events: Remains on supplemental oxygen, 2 LPM NC Taper O2 as tolerated Continue bronchodilators Continue antibiotics Incentive spirometry Head of bed elevation Aspiration precautions Continue PT. Disposition per hospitalist. Labs and imaging reviewed. Rest of plan as noted below. Plan: Supplemental oxygen Titrate to keep O2 sats above 92%. Pressors as necessary for hemodynamic support - currently off Titrate to keep mean arterial pressure greater than 65 mmHg. Continue bronchodilators. Continue antibiotics Incentive spirometry HOB elevation Aspiration precautions Monitor renal function. Monitor electrolytes. Supplement as necessary. Monitor ins and outs. DVT prophylaxis. Prognosis: Poor given patient's multiple co-morbidities. Rest of plan per hospitalist and other consultants. Thank you Dr. Isabel Dey MD, for allowing me to participate in this patient's care. Further recommendations will depend on the patient's clinical course. Please do not hesitate to contact me if you have any questions or concerns. This medical document was created using an electronic medical record system with [employer] dictation system. Although these documentations are being carefully reviewed, there may still be some phonetic and typographical changes. The errors are purely typographical, due to imperfection on the software program, and do not reflect any compromise in the patient's medical care. Dietary Evaluation Review Comments: 1. Continue current diet regime 2. [place] pt's food preferences 3. Consider add nepro bid (840kcal, 38g pro) for increase PO intake Expected Outcomes/Goals: 1. Pt will consume >75% of estimated needs within 3-5 days Plan discussed with: Patient, Other ([employer]) IRIS LOREDO MD Feb 10, 2024 23:00
[2024-02-11] VITALS (17 sets, daily range): BP systolic 107–135; BP diastolic 42–45; PULSE 76–109; RESP 17–22; TEMP 97.2–98.8; O2SAT 93–100
[2024-02-11] MEDS: ONDANSETRON HCL 4 MG/2 ML VIAL IV PRN (02:26)
--- NOTE | 2024-02-11 12:56 | MEDREC ---
[facility] ASP Intervention Section I [facility] ASP Intervention: Review courses of therapy (PATIENT HAS COMPLETED WITH DOXYCYCLINE COURSE FOR 7 DAYS (02/04-NOW) FOR ACUTE COPD EXACERBATION. PLEASE CONSIDER D/C DOXYCYCLINE IF THERE IS NO MORE CONCERN FOR OTHER TYPES OF INFECTION) NOE ESTRELLA Feb 11, 2024 12:56
--- NOTE | 2024-02-11 13:48 | DVHPN2 ---
Subjective The patient is seen and examined at bedside. Still complain of being very tired. Reviewed: Care Plan, H&P, Labs, Medications, Previous Orders, Radiology Changes from previous H/P or p: No Changes Eyes: No Pain, No Vision change, No Conjunctivae inflammation, No Eyelid inflammation, No Other, No Redness ENT: No Ear pain, No Ear discharge, No Nose pain, No Nose discharge, No Nose congestion, No Mouth pain, No Mouth swelling, No Throat pain, No Throat swelling, No Other Cardiovascular: Chest Pain, Palpitations Respiratory: Cough, Shortness of breath Gastrointestinal: No Nausea, No Vomiting, No Abdominal Pain, No Diarrhea, No Constipation, No Melena, No Hematochezia, No Other Genitourinary: No Dysuria, No Frequency, No Incontinence, No Hematuria, No Retention, No Other Musculoskeletal: No other, No neck pain, No shoulder pain, No arm pain, No back pain, No hand pain, No leg pain, No foot pain Skin: No Rash, No Lesions, No Jaundice, No Bruising, No Other Objective Vitals Vital Signs Date Time Temp Pulse Resp B/P (MAP) Pulse Ox O2 Delivery O2 Flow Rate FiO2 02/11/24 13:26 99 18 100 02/11/24 13:18 Room Air 0.0 02/11/24 13:18 21 02/11/24 09:00 97.8 115/44 (67) 97.8 Intake/Output Intake and Output 02/11/24 06:59 Intake Total 2350 ml Output Total 2250 ml Balance 100 ml Intake Oral 2350 ml Output Urine Total 2250 ml # Bowel Movements 1 General Appearance: Alert, Other (somenolent) Lungs: Clear to auscultation, Normal air movement Cardiovascular: Regular rate, Normal S1, Normal S2 Abdomen: Normal bowel sounds, Soft, No tenderness Extremities: No edema Medications Current Medications Medications Dose Ordered Sig/Ariella Route Start Time Stop Time Status Last Admin Dose Admin Ceftriaxone Sodium 50 ml @ 100 mls/hr DAILY IV 02/03/24 10:00 02/11/24 10:59 100 MLS/HR Dextrose 50 ml UD PRN IV 02/02/24 19:15 Al Hydrox/Mg Hydrox/Simethicone 30 ml Q6HP PRN PO 02/02/24 19:15 Acetaminophen 650 mg Q6HP PRN PO 02/02/24 19:15 02/10/24 17:59 650 MG Ondansetron HCl 4 mg Q4HP PRN IV 02/02/24 19:15 02/11/24 02:26 4 MG Morphine Sulfate 2 mg Q4HPRN PRN IV 02/02/24 19:15 02/06/24 11:42 2 MG Pantoprazole Sodium 40 mg DAILY IV 02/04/24 10:00 02/11/24 10:59 40 MG Diagnostic Test (Pha) 1 strip ACHS 02/03/24 17:00 02/11/24 12:12 1 STRIP Insulin Human Regular ACHS SC 02/03/24 17:00 02/11/24 06:21 2 UNITS Enteral Nutritional Formula 240 ml BID PO 02/05/24 22:00 02/11/24 12:12 240 ML Doxycycline Hyclate 250 ml @ 125 mls/hr Q12H IV 02/05/24 14:15 02/11/24 02:00 125 MLS/HR Acetylcysteine 200 mg Q8HR NEB 02/05/24 22:00 02/11/24 13:18 200 MG Budesonide 0.5 mg BID NEB 02/05/24 22:00 02/11/24 07:35 0.5 MG Ipratropium [place] 0.5 mg Q6HR NEB 02/06/24 00:00 02/11/24 13:18 0.5 MG Levalbuterol HCl 1.25 mg Q6HR NEB 02/06/24 00:00 02/11/24 13:18 1.25 MG Mupirocin 1 applic BID EACHNOSTRI 02/06/24 22:00 02/11/24 22:00 02/11/24 11:00 1 APPLIC Laboratory Results Laboratory Tests 02/10/24 04:29 Urinalysis Test 02/02/24 16:00 02/07/24 13:56 Urine Amorphous Crystals Few /hpf (None Seen) Urine Color Yellow (Yellow) Urine Clarity Turbid (Clear) H Urine pH 5.5 (5.0-9.0) Urine Specific [place] 1.018 (1.001-1.035) Urine Protein 1+ (Negative) H Urine Ketones Negative (Negative) Urine Blood 3+ /uL (Negative) H Urine Nitrite Negative (Negative) Urine Bilirubin Negative (Negative) Urine Urobilinogen Normal mg/dL (Negative) Urine Leukocyte Esterase 3+ /uL (Negative) Urine RBC 98 /hpf (0 - 4) Urine WBC 126 /hpf (0 - 5) Urine Squamous Epithelial Cells Few /hpf (<5) Urine Bacteria Few /hpf (None Seen) H Urine Mucus Few (None Seen) Urine Creatinine 70.94 mg/dL (30.0-125.0) Urine Protein/Creatinine Ratio 1.80 Urine Sodium 60 mmol/L (40-220) Urine Glucose Normal mg/dL (Normal) Urine Total Protein 127.8 mg/dL (1-14) H Microbiology Microbiology Date/Time Source Procedure Growth Status 02/05/24 15:43 Nose MRSA Screen - Final Methicillin Resistant S.aureus Complete 02/05/24 13:05 Blood Blood Culture - Final NO GROWTH AFTER 5 DAYS OF INCUBATION. Complete 02/02/24 16:00 Urine - [place] Urine Culture - Final Klebsiella pneumoniae Complete Labs and/or images reviewed: Labs reviewed by me Assessment/Plan Assessment/Plan МАРИЯ Intractable N/V/D UTI h/o DVT LLE Hypothyroidism DM2 Dyslipidemia Thrombocytopenia UTI with Klebsiella pneumoniae Sepsis Electrolyte imbalance with hypokalemia and hypo magnesia Plan: Continuing current management. Continuing with IV antibiotic Rocephin and doxycycline Continuing sliding scale insulin Continuing to monitor kidney function Encouraged the patient to be out of bed and ambulate Replace electrolytes as needed Continuing Zofran p.r.n. Plan discussed with: Patient Date of Service: Feb 11, 2024 Billing Provider: BABS SMITH MD Common Visit Codes: [id number] INP/OBS CARE(HIGH) BABS SMITH MD Feb 11, 2024 13:48
--- NOTE | 2024-02-11 14:27 | DVHPN2 ---
Progress Note - Dictate Date Seen: Feb 11, 2024 Medical Necessity Reason Pt with a Central, PICC or Fol: Yes The following are medically ne: Frey Catheter Reason for frey catheter: Strict I&O Subjective Patient was seen and evaluated in follow up. Patient denies any pain or discomfort. Patient now on room air. Patient receiving nebulized breathing treatments. No labs 02/11/24. vital signs Vital Sign Date Time Temp Pulse Resp B/P (MAP) Pulse Ox O2 Delivery O2 Flow Rate FiO2 02/11/24 09:00 97.8 78 17 115/44 (67) 98 97.8 02/11/24 08:00 Nasal Cannula* 1 24 Total Intake and Output 02/10/24 02/10/24 02/11/24 15:00 23:00 07:00 Intake Total 1450 ml 900 ml Output Total 1600 ml 650 ml Balance -150 ml 250 ml medications Current Medications Medications Dose Ordered Sig/[place] Route Start Time Stop Time Status Last Admin Dose Admin Ceftriaxone Sodium 50 ml @ 100 mls/hr DAILY IV 02/03/24 10:00 02/11/24 10:59 100 MLS/HR Dextrose 50 ml UD PRN IV 02/02/24 19:15 Al Hydrox/Mg Hydrox/Simethicone 30 ml Q6HP PRN PO 02/02/24 19:15 Acetaminophen 650 mg Q6HP PRN PO 02/02/24 19:15 02/10/24 17:59 650 MG Ondansetron HCl 4 mg Q4HP PRN IV 02/02/24 19:15 02/11/24 02:26 4 MG Morphine Sulfate 2 mg Q4HPRN PRN IV 02/02/24 19:15 02/06/24 11:42 2 MG Pantoprazole Sodium 40 mg DAILY IV 02/04/24 10:00 02/11/24 10:59 40 MG Diagnostic Test (Pha) 1 strip ACHS 02/03/24 17:00 02/11/24 06:23 1 STRIP Insulin Human Regular ACHS SC 02/03/24 17:00 02/11/24 06:21 2 UNITS Enteral Nutritional Formula 240 ml BID PO 02/05/24 22:00 02/10/24 21:44 240 ML Doxycycline Hyclate 250 ml @ 125 mls/hr Q12H IV 02/05/24 14:15 02/11/24 02:00 125 MLS/HR Acetylcysteine 200 mg Q8HR NEB 02/05/24 22:00 02/11/24 07:35 200 MG Budesonide 0.5 mg BID NEB 02/05/24 22:00 02/11/24 07:35 0.5 MG Ipratropium [place] 0.5 mg Q6HR NEB 02/06/24 00:00 02/11/24 07:34 0.5 MG Levalbuterol HCl 1.25 mg Q6HR NEB 02/06/24 00:00 02/11/24 07:35 1.25 MG Mupirocin 1 applic BID EACHNOSTRI 02/06/24 22:00 02/11/24 22:00 02/11/24 11:00 1 APPLIC objective GENERAL: Awake, alert, oriented. Morbidly obese. LUNGS: Clear. CARDIOVASCULAR: Heart sounds are good. ABDOMEN: Soft. laboratory and microbiology Laboratory Tests 02/10/24 04:29 Test 02/10/24 04:29 Range/Units Serum Glucose 156 H 74-106 mg/dL Problem List Syncope, rule out cardiac etiology. NTEMI type II secondary to urosepsis. History of hypertension now with hypotension. Hyperlipidemia. Thrombocytopenia. History of left lower extremity DV. Type 2 diabetes mellitus. Hypothyroidism. Chronic kidney disease. Obesity. Assessment/Plan Continued all current supportive medical care. IV antibiotics as ordered. GI prophylactics. Morphine for pain management. Additional plan as per the hospital course. Dietary Evaluation Review Comments: 1. Continue current diet regime 2. [place] pt's food preferences 3. Consider add nepro bid (840kcal, 38g pro) for increase PO intake Expected Outcomes/Goals: 1. Pt will consume >75% of estimated needs within 3-5 days Plan discussed with: Patient BIBIANA AVILA MD Feb 11, 2024 12:07
--- NOTE | 2024-02-11 23:39 | DVHPN2 ---
Progress Note - Dictate Date Seen: Feb 11, 2024 Medical Necessity Reason Pt with a Central, PICC or Fol: Yes The following are medically ne: Frey Catheter Reason for frey catheter: Strict I&O Subjective Patient seen and examined at bedside. Remains on supplemental oxygen Overnight events reviewed. vital signs Vital Sign Date Time Temp Pulse Resp B/P (MAP) Pulse Ox O2 Delivery O2 Flow Rate FiO2 02/11/24 22:20 82 18 100 02/11/24 21:00 98.2 117/42 (67) 98.2 02/11/24 20:00 Room Air 0.0 02/11/24 20:00 21 Total Intake and Output 02/10/24 02/10/24 02/11/24 15:00 23:00 07:00 Intake Total 1450 ml 900 ml Output Total 1600 ml 650 ml Balance -150 ml 250 ml medications Current Medications Medications Dose Ordered Sig/Ariella Route Start Time Stop Time Status Last Admin Dose Admin Ceftriaxone Sodium 50 ml @ 100 mls/hr DAILY IV 02/03/24 10:00 02/11/24 10:59 100 MLS/HR Dextrose 50 ml UD PRN IV 02/02/24 19:15 Al Hydrox/Mg Hydrox/Simethicone 30 ml Q6HP PRN PO 02/02/24 19:15 Acetaminophen 650 mg Q6HP PRN PO 02/02/24 19:15 02/11/24 20:03 650 MG Ondansetron HCl 4 mg Q4HP PRN IV 02/02/24 19:15 02/11/24 02:26 4 MG Pantoprazole Sodium 40 mg DAILY IV 02/04/24 10:00 02/11/24 10:59 40 MG Diagnostic Test (Pha) 1 strip ACHS 02/03/24 17:00 02/11/24 22:11 1 STRIP Insulin Human Regular ACHS SC 02/03/24 17:00 02/11/24 22:11 2 UNITS Enteral Nutritional Formula 240 ml BID PO 02/05/24 22:00 02/11/24 22:15 240 ML Doxycycline Hyclate 250 ml @ 125 mls/hr Q12H IV 02/05/24 14:15 02/11/24 14:18 125 MLS/HR Acetylcysteine 200 mg Q8HR NEB 02/05/24 22:00 02/11/24 22:16 200 MG Budesonide 0.5 mg BID NEB 02/05/24 22:00 02/11/24 22:16 0.5 MG Ipratropium [place] 0.5 mg Q6HR NEB 02/06/24 00:00 02/11/24 20:12 0.5 MG Levalbuterol HCl 1.25 mg Q6HR NEB 02/06/24 00:00 02/11/24 20:11 1.25 MG objective Gen.: Patient lying in bed in no apparent distress. On supplemental oxygen. Head: Normocephalic, atraumatic. Eyes: EOMI/PERRLA. Ears: Normal hearing. Normal anatomy. Neck/trachea: Trachea midline, supple. Nose: Normal external anatomy. Mouth: Moist mucous membranes. Chest: Decreased air entry bilaterally. No wheezing or rhonchi. Cardiovascular: Positive S1, positive S2. Regular rate and rhythm. Abdomen: Positive bowel sounds in all 4 quadrants. Soft, non-tender, non- distended. : Deferred. Rectal: Deferred. Skin: Warm, dry. Intact. Extremities: 2+ radial pulses bilaterally. No lower extremity edema. Neuro: Awake, alert, oriented x3. No gross motor or sensory deficits. Cranial nerves II through XII intact. Gait not assessed. laboratory and microbiology Laboratory Tests 02/10/24 04:29 Test 02/10/24 04:29 Range/Units Serum Glucose 156 H 74-106 mg/dL Assessment/Plan Impression: Acute hypoxic respiratory failure Acute Exacerbation COPD Shock, likely septic due to UTI CHF exacerbation Metabolic acidosis Acute metabolic encephalopathy Hydronephrosis Wheezing H/o DVT LLE Events: Remains on supplemental oxygen, 1 LPM NC Taper O2 as tolerated Continue bronchodilators/Mucomyst/Pulmicort Continue antibiotics Incentive spirometry Accu-Cheks, ISS. Pain control Avoid oversedation Head of bed elevation Aspiration precautions Continue PT. Disposition per hospitalist. Labs and imaging reviewed. Rest of plan as noted below. Plan: Supplemental oxygen Titrate to keep O2 sats above 92%. Pressors as necessary for hemodynamic support - currently off Titrate to keep mean arterial pressure greater than 65 mmHg. Continue bronchodilators. Continue antibiotics Incentive spirometry HOB elevation Aspiration precautions Monitor renal function. Monitor electrolytes. Supplement as necessary. Monitor ins and outs. DVT prophylaxis. Prognosis: Poor given patient's multiple co-morbidities. Rest of plan per hospitalist and other consultants. Thank you Dr. Isabel Dey MD, for allowing me to participate in this patient's care. Further recommendations will depend on the patient's clinical course. Please do not hesitate to contact me if you have any questions or concerns. This medical document was created using an electronic medical record system with [employer] dictation system. Although these documentations are being carefully reviewed, there may still be some phonetic and typographical changes. The errors are purely typographical, due to imperfection on the software program, and do not reflect any compromise in the patient's medical care. Dietary Evaluation Review Comments: 1. Continue current diet regime 2. [place] pt's food preferences 3. Consider add nepro bid (840kcal, 38g pro) for increase PO intake Expected Outcomes/Goals: 1. Pt will consume >75% of estimated needs within 3-5 days Plan discussed with: Patient, Other (MAYCOL Tesfaye) IRIS LOREDO MD Feb 11, 2024 23:38
[2024-02-12] VITALS (14 sets, daily range): BP systolic 92–128; BP diastolic 32–51; PULSE 61–96; RESP 16–22; TEMP 97.6–99.1; O2SAT 92–100
--- NOTE | 2024-02-12 08:24 | DVHPN2 ---
Subjective The patient is seen and examined at bedside. The patient is very tired and weak. Patient does tried to work with physical therapy. Reviewed: Care Plan, H&P, Labs, Medications, Previous Orders, Radiology Changes from previous H/P or p: No Changes Eyes: No Pain, No Vision change, No Conjunctivae inflammation, No Eyelid inflammation, No Other, No Redness ENT: No Ear pain, No Ear discharge, No Nose pain, No Nose discharge, No Nose congestion, No Mouth pain, No Mouth swelling, No Throat pain, No Throat swelling, No Other Cardiovascular: Chest Pain, Palpitations Respiratory: Cough, Shortness of breath Gastrointestinal: No Nausea, No Vomiting, No Abdominal Pain, No Diarrhea, No Constipation, No Melena, No Hematochezia, No Other Genitourinary: No Dysuria, No Frequency, No Incontinence, No Hematuria, No Retention, No Other Musculoskeletal: No other, No neck pain, No shoulder pain, No arm pain, No back pain, No hand pain, No leg pain, No foot pain Skin: No Rash, No Lesions, No Jaundice, No Bruising, No Other Objective Vitals Vital Signs Date Time Temp Pulse Resp B/P (MAP) Pulse Ox O2 Delivery O2 Flow Rate FiO2 02/12/24 06:50 79 18 100 02/12/24 06:38 Nasal Cannula 4.0 02/12/24 06:38 36 02/12/24 05:00 97.6 122/51 (74) 97.6 Intake/Output Intake and Output 02/12/24 07:00 Intake Total 2297 ml Output Total 2750 ml Balance -453 ml Intake Oral 2047 ml IV Total 250 ml Output Urine Total 2750 ml # Bowel Movements 3 General Appearance: Alert, Other (somenolent) Lungs: Clear to auscultation, Normal air movement Cardiovascular: Regular rate, Normal S1, Normal S2 Abdomen: Normal bowel sounds, Soft, No tenderness Extremities: No edema Medications Current Medications Medications Dose Ordered Sig/Ariella Route Start Time Stop Time Status Last Admin Dose Admin Ceftriaxone Sodium 50 ml @ 100 mls/hr DAILY IV 02/03/24 10:00 02/11/24 10:59 100 MLS/HR Dextrose 50 ml UD PRN IV 02/02/24 19:15 Al Hydrox/Mg Hydrox/Simethicone 30 ml Q6HP PRN PO 02/02/24 19:15 Acetaminophen 650 mg Q6HP PRN PO 02/02/24 19:15 02/11/24 20:03 650 MG Ondansetron HCl 4 mg Q4HP PRN IV 02/02/24 19:15 02/11/24 02:26 4 MG Pantoprazole Sodium 40 mg DAILY IV 02/04/24 10:00 02/11/24 10:59 40 MG Diagnostic Test (Pha) 1 strip ACHS 02/03/24 17:00 02/12/24 06:27 1 STRIP Insulin Human Regular ACHS SC 02/03/24 17:00 02/12/24 06:25 2 UNITS Enteral Nutritional Formula 240 ml BID PO 02/05/24 22:00 02/11/24 22:15 240 ML Doxycycline Hyclate 250 ml @ 125 mls/hr Q12H IV 02/05/24 14:15 02/12/24 02:26 125 MLS/HR Acetylcysteine 200 mg Q8HR NEB 02/05/24 22:00 02/12/24 06:38 200 MG Budesonide 0.5 mg BID NEB 02/05/24 22:00 02/12/24 06:38 0.5 MG Ipratropium [place] 0.5 mg Q6HR NEB 02/06/24 00:00 02/12/24 06:38 0.5 MG Levalbuterol HCl 1.25 mg Q6HR NEB 02/06/24 00:00 02/12/24 06:38 1.25 MG Laboratory Results Laboratory Tests 02/10/24 04:29 Urinalysis Test 02/02/24 16:00 02/07/24 13:56 Urine Amorphous Crystals Few /hpf (None Seen) Urine Color Yellow (Yellow) Urine Clarity Turbid (Clear) H Urine pH 5.5 (5.0-9.0) Urine Specific [place] 1.018 (1.001-1.035) Urine Protein 1+ (Negative) H Urine Ketones Negative (Negative) Urine Blood 3+ /uL (Negative) H Urine Nitrite Negative (Negative) Urine Bilirubin Negative (Negative) Urine Urobilinogen Normal mg/dL (Negative) Urine Leukocyte Esterase 3+ /uL (Negative) Urine RBC 98 /hpf (0 - 4) Urine WBC 126 /hpf (0 - 5) Urine Squamous Epithelial Cells Few /hpf (<5) Urine Bacteria Few /hpf (None Seen) H Urine Mucus Few (None Seen) Urine Creatinine 70.94 mg/dL (30.0-125.0) Urine Protein/Creatinine Ratio 1.80 Urine Sodium 60 mmol/L (40-220) Urine Glucose Normal mg/dL (Normal) Urine Total Protein 127.8 mg/dL (1-14) H Microbiology Microbiology Date/Time Source Procedure Growth Status 02/05/24 15:43 Nose MRSA Screen - Final Methicillin Resistant S.aureus Complete 02/05/24 13:05 Blood Blood Culture - Final NO GROWTH AFTER 5 DAYS OF INCUBATION. Complete 02/02/24 16:00 Urine - [place] Urine Culture - Final Klebsiella pneumoniae Complete Labs and/or images reviewed: Labs reviewed by me Assessment/Plan Assessment/Plan МАРИЯ Intractable N/V/D UTI h/o DVT LLE Hypothyroidism DM2 Dyslipidemia Thrombocytopenia UTI with Klebsiella pneumoniae Sepsis Electrolyte imbalance with hypokalemia and hypo magnesia Plan: Continuing current management. Continuing with IV antibiotic Rocephin and doxycycline Continuing sliding scale insulin Continuing to monitor kidney function Encouraged the patient to be out of bed and ambulate Replace electrolytes as needed Continuing Zofran p.r.n. Plan discussed with: Patient Date of Service: Feb 12, 2024 Billing Provider: BABS SMITH MD Common Visit Codes: [id number] INP/OBS CARE(HIGH) BABS SMITH MD Feb 12, 2024 08:24
--- NOTE | 2024-02-12 16:38 | DVHPN2 ---
Progress Note - Dictate Date Seen: Feb 12, 2024 Medical Necessity Reason Pt with a Central, PICC or Fol: Yes The following are medically ne: Frey Catheter Reason for frey catheter: Strict I&O Subjective Patient was seen and evaluated in follow up. Patient denies any current complaints. Patient is on 2 LPM NC. GLUC 149. vital signs Vital Sign Date Time Temp Pulse Resp B/P (MAP) Pulse Ox O2 Delivery O2 Flow Rate FiO2 02/12/24 09:00 98.2 87 16 128/42 (70) 99 98.2 02/12/24 08:00 Nasal Cannula* 2 28 Total Intake and Output 02/11/24 02/11/24 02/12/24 15:00 23:00 07:00 Intake Total 1697 ml 600 ml Output Total 1700 ml 1050 ml Balance -3 ml -450 ml medications Current Medications Medications Dose Ordered Sig/Ariella Route Start Time Stop Time Status Last Admin Dose Admin Ceftriaxone Sodium 50 ml @ 100 mls/hr DAILY IV 02/03/24 10:00 02/12/24 09:20 100 MLS/HR Dextrose 50 ml UD PRN IV 02/02/24 19:15 Al Hydrox/Mg Hydrox/Simethicone 30 ml Q6HP PRN PO 02/02/24 19:15 Acetaminophen 650 mg Q6HP PRN PO 02/02/24 19:15 02/12/24 09:21 650 MG Ondansetron HCl 4 mg Q4HP PRN IV 02/02/24 19:15 02/11/24 02:26 4 MG Pantoprazole Sodium 40 mg DAILY IV 02/04/24 10:00 02/12/24 09:20 40 MG Diagnostic Test (Pha) 1 strip ACHS 02/03/24 17:00 02/12/24 11:30 1 STRIP Insulin Human Regular ACHS SC 02/03/24 17:00 02/12/24 11:30 2 UNITS Enteral Nutritional Formula 240 ml BID PO 02/05/24 22:00 02/12/24 09:24 240 ML Doxycycline Hyclate 250 ml @ 125 mls/hr Q12H IV 02/05/24 14:15 02/12/24 02:26 125 MLS/HR Acetylcysteine 200 mg Q8HR NEB 02/05/24 22:00 02/12/24 06:38 200 MG Budesonide 0.5 mg BID NEB 02/05/24 22:00 02/12/24 06:38 0.5 MG Ipratropium [place] 0.5 mg Q6HR NEB 02/06/24 00:00 02/12/24 06:38 0.5 MG Levalbuterol HCl 1.25 mg Q6HR [facility] 02/06/24 00:00 02/12/24 06:38 1.25 MG objective GENERAL: Awake, alert, oriented. Morbidly obese. LUNGS: Clear. CARDIOVASCULAR: Heart sounds are good. ABDOMEN: Soft. laboratory and microbiology Laboratory Tests 02/10/24 04:29 Test 02/10/24 04:29 Range/Units Serum Glucose 156 H 74-106 mg/dL Problem List Syncope, rule out cardiac etiology. NTEMI type II secondary to urosepsis. History of hypertension now with hypotension. Hyperlipidemia. Thrombocytopenia. History of left lower extremity DV. Type 2 diabetes mellitus. Hypothyroidism. Chronic kidney disease. Obesity. Assessment/Plan Continued all current supportive medical care. IV antibiotics as ordered. GI prophylactics. Morphine for pain management. Additional plan as per the hospital course. Dietary Evaluation Review Comments: 1. Continue current diet regime 2. [place] pt's food preferences 3. Consider add nepro bid (840kcal, 38g pro) for increase PO intake Expected Outcomes/Goals: 1. Pt will consume >75% of estimated needs within 3-5 days Plan discussed with: Patient BIBIANA AVILA MD Feb 12, 2024 13:23
--- NOTE | 2024-02-12 23:26 | DVHPN2 ---
Progress Note - Dictate Date Seen: Feb 12, 2024 Medical Necessity Reason Pt with a Central, PICC or Fol: Yes The following are medically ne: Frey Catheter Reason for frey catheter: Strict I&O Subjective Patient seen and examined at bedside. Remains on supplemental oxygen Overnight events reviewed. vital signs Vital Sign Date Time Temp Pulse Resp B/P (MAP) Pulse Ox O2 Delivery O2 Flow Rate FiO2 02/12/24 21:00 98.1 61 18 112/41 (64) 96 98.1 02/12/24 20:00 Nasal Cannula* 2 28 Total Intake and Output 02/11/24 02/11/24 02/12/24 15:00 23:00 07:00 Intake Total 1697 ml 600 ml Output Total 1700 ml 1050 ml Balance -3 ml -450 ml medications Current Medications Medications Dose Ordered Sig/Ariella Route Start Time Stop Time Status Last Admin Dose Admin Ceftriaxone Sodium 50 ml @ 100 mls/hr DAILY IV 02/03/24 10:00 02/12/24 09:20 100 MLS/HR Dextrose 50 ml UD PRN IV 02/02/24 19:15 Al Hydrox/Mg Hydrox/Simethicone 30 ml Q6HP PRN PO 02/02/24 19:15 Acetaminophen 650 mg Q6HP PRN PO 02/02/24 19:15 02/12/24 21:28 650 MG Ondansetron HCl 4 mg Q4HP PRN IV 02/02/24 19:15 02/11/24 02:26 4 MG Pantoprazole Sodium 40 mg DAILY IV 02/04/24 10:00 02/12/24 09:20 40 MG Diagnostic Test (Pha) 1 strip ACHS 02/03/24 17:00 02/12/24 22:05 1 STRIP Insulin Human Regular ACHS SC 02/03/24 17:00 02/12/24 17:00 3 UNITS Enteral Nutritional Formula 240 ml BID PO 02/05/24 22:00 02/12/24 09:24 240 ML Doxycycline Hyclate 250 ml @ 125 mls/hr Q12H IV 02/05/24 14:15 02/12/24 14:59 125 MLS/HR Acetylcysteine 200 mg Q8HR NEB 02/05/24 22:00 02/12/24 19:36 200 MG Budesonide 0.5 mg BID NEB 02/05/24 22:00 02/12/24 19:35 0.5 MG Ipratropium [place] 0.5 mg Q6HR NEB 02/06/24 00:00 02/12/24 19:35 0.5 MG Levalbuterol HCl 1.25 mg Q6HR NEB 02/06/24 00:00 02/12/24 19:35 1.25 MG objective Gen.: Patient lying in bed in no apparent distress. On supplemental oxygen. Head: Normocephalic, atraumatic. Eyes: EOMI/PERRLA. Ears: Normal hearing. Normal anatomy. Neck/trachea: Trachea midline, supple. Nose: Normal external anatomy. Mouth: Moist mucous membranes. Chest: Decreased air entry bilaterally. No wheezing or rhonchi. Cardiovascular: Positive S1, positive S2. Regular rate and rhythm. Abdomen: Positive bowel sounds in all 4 quadrants. Soft, non-tender, non- distended. : Deferred. Rectal: Deferred. Skin: Warm, dry. Intact. Extremities: 2+ radial pulses bilaterally. No lower extremity edema. Neuro: Awake, alert, oriented x3. No gross motor or sensory deficits. Cranial nerves II through XII intact. Gait not assessed. laboratory and microbiology Laboratory Tests 02/10/24 04:29 Test 02/10/24 04:29 Range/Units Serum Glucose 156 H 74-106 mg/dL Assessment/Plan Impression: Acute hypoxic respiratory failure Acute Exacerbation COPD Shock, likely septic due to UTI CHF exacerbation Metabolic acidosis Acute metabolic encephalopathy Hydronephrosis Wheezing H/o DVT LLE Events: Remains on supplemental oxygen, 2 LPM NC Taper O2 as tolerated Continue bronchodilators/Mucomyst/Pulmicort Continue antibiotics Incentive spirometry Antitussive for cough. Pain control Avoid oversedation Head of bed elevation Aspiration precautions Continue PT. Disposition per hospitalist. Labs and imaging reviewed. Rest of plan as noted below. Plan: Supplemental oxygen Titrate to keep O2 sats above 92%. Pressors as necessary for hemodynamic support - currently off Titrate to keep mean arterial pressure greater than 65 mmHg. Continue bronchodilators. Continue antibiotics Incentive spirometry HOB elevation Aspiration precautions Monitor renal function. Monitor electrolytes. Supplement as necessary. Monitor ins and outs. DVT prophylaxis. Prognosis: Poor given patient's multiple co-morbidities. Rest of plan per hospitalist and other consultants. Thank you Dr. Isabel Dey MD, for allowing me to participate in this patient's care. Further recommendations will depend on the patient's clinical course. Please do not hesitate to contact me if you have any questions or concerns. This medical document was created using an electronic medical record system with [employer] dictation system. Although these documentations are being carefully reviewed, there may still be some phonetic and typographical changes. The errors are purely typographical, due to imperfection on the software program, and do not reflect any compromise in the patient's medical care. Dietary Evaluation Review Comments: 1. Continue current diet regime 2. [place] pt's food preferences 3. Consider add nepro bid (840kcal, 38g pro) for increase PO intake Expected Outcomes/Goals: 1. Pt will consume >75% of estimated needs within 3-5 days Plan discussed with: Patient, Other (RN ) IRIS LOREDO MD Feb 12, 2024 23:26
[2024-02-13] VITALS (18 sets, daily range): BP systolic 111–122; BP diastolic 39–49; PULSE 73–90; RESP 17–22; TEMP 97.6–98.3; O2SAT 94–100
[2024-02-13] MEDS: guaiFENesin-DM 100/10mg/5ml SYR PO PRN (00:40)
--- NOTE | 2024-02-13 14:24 | DVHPN2 ---
Subjective No complaints She has 2 to 3+ edema bilaterally in her legs Changes from previous H/P or p: Changes Eyes: No Pain, No Vision change, No Conjunctivae inflammation, No Eyelid inflammation, No Other, No Redness ENT: No Ear pain, No Ear discharge, No Nose pain, No Nose discharge, No Nose congestion, No Mouth pain, No Mouth swelling, No Throat pain, No Throat swelling, No Other Cardiovascular: Chest Pain, Palpitations Respiratory: Cough, Shortness of breath Gastrointestinal: No Nausea, No Vomiting, No Abdominal Pain, No Diarrhea, No Constipation, No Melena, No Hematochezia, No Other Genitourinary: No Dysuria, No Frequency, No Incontinence, No Hematuria, No Retention, No Other Musculoskeletal: No other, No neck pain, No shoulder pain, No arm pain, No back pain, No hand pain, No leg pain, No foot pain Skin: No Rash, No Lesions, No Jaundice, No Bruising, No Other Objective Vitals Vital Signs Date Time Temp Pulse Resp B/P (MAP) Pulse Ox O2 Delivery O2 Flow Rate FiO2 02/13/24 13:12 76 20 99 02/13/24 13:06 Room Air* 0 21 02/13/24 12:30 97.9 111/42 (65) 97.9 Intake/Output Intake and Output 02/13/24 07:00 Intake Total 3745 ml Output Total 2250 ml Balance 1495 ml Intake Oral 3195 ml IV Total 550 ml Output Urine Total 2250 ml # Bowel Movements 2 General Appearance: Alert, Other (somenolent) Lungs: Clear to auscultation, Normal air movement Cardiovascular: Regular rate, Normal S1, Normal S2 Abdomen: Normal bowel sounds, Soft, No tenderness Extremities: Other (+edema bilaterally) Medications Current Medications Medications Dose Ordered Sig/Ariella Route Start Time Stop Time Status Last Admin Dose Admin Ceftriaxone Sodium 50 ml @ 100 mls/hr DAILY IV 02/03/24 10:00 02/13/24 09:18 100 MLS/HR Dextrose 50 ml UD PRN IV 02/02/24 19:15 Al Hydrox/Mg Hydrox/Simethicone 30 ml Q6HP PRN PO 02/02/24 19:15 Acetaminophen 650 mg Q6HP PRN PO 02/02/24 19:15 02/13/24 11:55 650 MG Ondansetron HCl 4 mg Q4HP PRN IV 02/02/24 19:15 02/11/24 02:26 4 MG Pantoprazole Sodium 40 mg DAILY IV 02/04/24 10:00 02/13/24 09:17 40 MG Diagnostic Test (Pha) 1 strip ACHS 02/03/24 17:00 02/13/24 11:47 1 STRIP Insulin Human Regular ACHS SC 02/03/24 17:00 02/13/24 11:55 3 UNITS Enteral Nutritional Formula 240 ml BID PO 02/05/24 22:00 02/13/24 09:18 240 ML Doxycycline Hyclate 250 ml @ 125 mls/hr Q12H IV 02/05/24 14:15 02/13/24 02:19 125 MLS/HR Budesonide 0.5 mg BID NEB 02/05/24 22:00 02/13/24 07:27 0.5 MG Ipratropium [place] 0.5 mg Q6HR NEB 02/06/24 00:00 02/13/24 13:06 0.5 MG Levalbuterol HCl 1.25 mg Q6HR NEB 02/06/24 00:00 02/13/24 13:06 1.25 MG Guaifenesin/ Dextromethorphan 10 ml Q6HP PRN PO 02/13/24 00:45 02/13/24 11:54 10 ML Laboratory Results Laboratory Tests 02/10/24 04:29 Urinalysis Test 02/02/24 16:00 02/07/24 13:56 Urine Amorphous Crystals Few /hpf (None Seen) Urine Color Yellow (Yellow) Urine Clarity Turbid (Clear) H Urine pH 5.5 (5.0-9.0) Urine Specific [place] 1.018 (1.001-1.035) Urine Protein 1+ (Negative) H Urine Ketones Negative (Negative) Urine Blood 3+ /uL (Negative) H Urine Nitrite Negative (Negative) Urine Bilirubin Negative (Negative) Urine Urobilinogen Normal mg/dL (Negative) Urine Leukocyte Esterase 3+ /uL (Negative) Urine RBC 98 /hpf (0 - 4) Urine WBC 126 /hpf (0 - 5) Urine Squamous Epithelial Cells Few /hpf (<5) Urine Bacteria Few /hpf (None Seen) H Urine Mucus Few (None Seen) Urine Creatinine 70.94 mg/dL (30.0-125.0) Urine Protein/Creatinine Ratio 1.80 Urine Sodium 60 mmol/L (40-220) Urine Glucose Normal mg/dL (Normal) Urine Total Protein 127.8 mg/dL (1-14) H Microbiology Microbiology Date/Time Source Procedure Growth Status 02/05/24 15:43 Nose MRSA Screen - Final Methicillin Resistant S.aureus Complete 02/05/24 13:05 Blood Blood Culture - Final NO GROWTH AFTER 5 DAYS OF INCUBATION. Complete 02/02/24 16:00 Urine - [place] Urine Culture - Final Klebsiella pneumoniae Complete Assessment/Plan Assessment/Plan МАРИЯ Intractable N/V/D UTI h/o DVT LLE Hypothyroidism DM2 Dyslipidemia Thrombocytopenia PLAN: IV fluids Vasopressors IV antibiotics: Rocephin and Flagyl Protonix Discussed with daughter over the phone DNR DC Lasix DC Metoprolol DC Midodrine 02/04/2024: Continue vasopressors as needed Continue Rocephin IV Continue IV fluids Add sodium bicarbonate drip to correct the metabolic acidosis Nephrology consultation Avoid NSAIDs and contrast and [place]lomo or arbs DNR Discussed with the family at the bedside 02/05/2024: Continue Levophed drip Continue IV Rocephin Continue IV fluids with D5 NS with sodium bicarbonate Nephrology consult DNR Add doxycycline IV 02/06/24: More alert Replace K+ and Mg Check BLE venous doppler Continue IV fluids with sodium bicarbonate Levophed drip as needed IV Rocephin and doxycycline DNR Kidney ultrasound UTI with Klebsiella pneumoniae 02/07/2024: Kidney function is improving Continue IV fluids Swallow eval Start diet when the swallow eval is done She is much more alert and oriented Physical therapy Thrombocytopenia due to sepsis Sepsis Order home health physical therapy Hypernatremia: Change IV fluids to half NS, starts p.o. intake Discussed with the family at the bedside 02/08/2024: Physical therapy today Out of bed as tolerated Plan to go home in 1-2 days once she is out of bed Discontinue the central line Keep the [place] catheter in for now 02/09/2024: Continue physical therapy Continue to monitor the thrombocytopenia Continue Rocephin and doxycycline Discontinue the IV fluids 02/13/2024: Diastolic heart failure, acute on chronic: Start Lasix 40 mg IV twice a day Stop the IV antibiotics Thrombocytopenia is better Kidney function is normal Continue physical therapy Keep the hospital 1 more day Discharge planning for tomorrow Plan discussed with: Patient Date of Service: Feb 13, 2024 Billing Provider: XAVIER AIKEN MD Common Visit Codes: NOT BILLABLE XAVIER AIKEN MD Feb 13, 2024 14:24
[2024-02-13] MEDS: FUROSEMIDE 40 MG/4 ML VIAL IV ONE (17:52)
--- NOTE | 2024-02-13 18:23 | DVHPN2 ---
Progress Note - Dictate Date Seen: Feb 13, 2024 Medical Necessity Reason Pt with a Central, PICC or Fol: Yes The following are medically ne: Frey Catheter Reason for frey catheter: Strict I&O Subjective Patient was seen and evaluated in follow up. No overnight events. Patient complaining of a cough. Patient continues to have BLE edema. BS in the 120s. vital signs Vital Sign Date Time Temp Pulse Resp B/P (MAP) Pulse Ox O2 Delivery O2 Flow Rate FiO2 02/13/24 17:52 116/45 02/13/24 17:30 97.8 84 17 95 97.8 02/13/24 13:06 Room Air* 0 21 Total Intake and Output 02/12/24 02/12/24 02/13/24 15:00 23:00 07:00 Intake Total 50 ml 2450 ml 1245 ml Output Total 1300 ml 950 ml Balance 50 ml 1150 ml 295 ml medications Current Medications Medications Dose Ordered Sig/Ariella Route Start Time Stop Time Status Last Admin Dose Admin Dextrose 50 ml UD PRN IV 02/02/24 19:15 Al Hydrox/Mg Hydrox/Simethicone 30 ml Q6HP PRN PO 02/02/24 19:15 Acetaminophen 650 mg Q6HP PRN PO 02/02/24 19:15 02/13/24 11:55 650 MG Ondansetron HCl 4 mg Q4HP PRN IV 02/02/24 19:15 02/11/24 02:26 4 MG Pantoprazole Sodium 40 mg DAILY IV 02/04/24 10:00 02/13/24 09:17 40 MG Diagnostic Test (Pha) 1 strip ACHS 02/03/24 17:00 02/13/24 17:13 1 STRIP Insulin Human Regular ACHS SC 02/03/24 17:00 02/13/24 11:55 3 UNITS Enteral Nutritional Formula 240 ml BID PO 02/05/24 22:00 02/13/24 09:18 240 ML Budesonide 0.5 mg BID NEB 02/05/24 22:00 02/13/24 07:27 0.5 MG Ipratropium [place] 0.5 mg Q6HR NEB 02/06/24 00:00 02/13/24 13:06 0.5 MG Levalbuterol HCl 1.25 mg Q6HR NEB 02/06/24 00:00 02/13/24 13:06 1.25 MG Guaifenesin/ Dextromethorphan 10 ml Q6HP PRN PO 02/13/24 00:45 02/13/24 11:54 10 ML Furosemide 40 mg BIDD IV 02/14/24 10:00 objective GENERAL: Awake, alert, oriented. Morbidly obese. LUNGS: Clear. CARDIOVASCULAR: Heart sounds are good. ABDOMEN: Soft. laboratory and microbiology Laboratory Tests 02/10/24 04:29 Test 02/10/24 04:29 Range/Units Serum Glucose 156 H 74-106 mg/dL Problem List Syncope, rule out cardiac etiology. NTEMI type II secondary to urosepsis. History of hypertension now with hypotension. Hyperlipidemia. Thrombocytopenia. History of left lower extremity DV. Type 2 diabetes mellitus. Hypothyroidism. Chronic kidney disease. Obesity. Assessment/Plan Continued all current supportive medical care. IV antibiotics as ordered. GI prophylactics. Morphine for pain management. Additional plan as per the hospital course. Dietary Evaluation Review Comments: 1. Continue current diet regime 2. [place] pt's food preferences 3. Consider add nepro bid (840kcal, 38g pro) for increase PO intake Expected Outcomes/Goals: 1. Pt will consume >75% of estimated needs within 3-5 days Plan discussed with: Patient BIBIANA AVILA MD Feb 13, 2024 18:23
--- NOTE | 2024-02-13 21:52 | DVHPN2 ---
Progress Note - Dictate Date Seen: Feb 13, 2024 Medical Necessity Reason Pt with a Central, PICC or Fol: Yes The following are medically ne: Frey Catheter Reason for frey catheter: Strict I&O Subjective Patient seen and examined at bedside. Breathing on room air Overnight events reviewed. vital signs Vital Sign Date Time Temp Pulse Resp B/P (MAP) Pulse Ox O2 Delivery O2 Flow Rate FiO2 02/13/24 21:15 86 20 97 02/13/24 21:10 Room Air 0.0 02/13/24 21:10 21 02/13/24 17:52 116/45 02/13/24 17:30 97.8 97.8 Total Intake and Output 02/12/24 02/12/24 02/13/24 15:00 23:00 07:00 Intake Total 50 ml 2450 ml 1245 ml Output Total 1300 ml 950 ml Balance 50 ml 1150 ml 295 ml medications Current Medications Medications Dose Ordered Sig/Ariella Route Start Time Stop Time Status Last Admin Dose Admin Dextrose 50 ml UD PRN IV 02/02/24 19:15 Al Hydrox/Mg Hydrox/Simethicone 30 ml Q6HP PRN PO 02/02/24 19:15 Acetaminophen 650 mg Q6HP PRN PO 02/02/24 19:15 02/13/24 18:27 650 MG Ondansetron HCl 4 mg Q4HP PRN IV 02/02/24 19:15 02/11/24 02:26 4 MG Pantoprazole Sodium 40 mg DAILY IV 02/04/24 10:00 02/13/24 09:17 40 MG Diagnostic Test (Pha) 1 strip ACHS 02/03/24 17:00 02/13/24 21:22 1 STRIP Insulin Human Regular ACHS SC 02/03/24 17:00 02/13/24 21:22 2 UNITS Enteral Nutritional Formula 240 ml BID PO 02/05/24 22:00 02/13/24 21:25 240 ML Budesonide 0.5 mg BID NEB 02/05/24 22:00 02/13/24 21:10 0.5 MG Ipratropium [place] 0.5 mg Q6HR NEB 02/06/24 00:00 02/13/24 18:37 0.5 MG Levalbuterol HCl 1.25 mg Q6HR NEB 02/06/24 00:00 02/13/24 18:37 1.25 MG Guaifenesin/ Dextromethorphan 10 ml Q6HP PRN PO 02/13/24 00:45 02/13/24 11:54 10 ML Furosemide 40 mg BIDD IV 02/14/24 10:00 objective Gen.: Patient lying in bed in no apparent distress. On room air. Head: Normocephalic, atraumatic. Eyes: EOMI/PERRLA. Ears: Normal hearing. Normal anatomy. Neck/trachea: Trachea midline, supple. Nose: Normal external anatomy. Mouth: Moist mucous membranes. Chest: Decreased air entry bilaterally. No wheezing or rhonchi. Cardiovascular: Positive S1, positive S2. Regular rate and rhythm. Abdomen: Positive bowel sounds in all 4 quadrants. Soft, non-tender, non- distended. : Deferred. Rectal: Deferred. Skin: Warm, dry. Intact. Extremities: 2+ radial pulses bilaterally. No lower extremity edema. Neuro: Awake, alert, oriented x3. No gross motor or sensory deficits. Cranial nerves II through XII intact. Gait not assessed. laboratory and microbiology Laboratory Tests 02/10/24 04:29 Test 02/10/24 04:29 Range/Units Serum Glucose 156 H 74-106 mg/dL Assessment/Plan Impression: Acute hypoxic respiratory failure Acute Exacerbation COPD Shock, likely septic due to UTI CHF exacerbation Metabolic acidosis Acute metabolic encephalopathy Hydronephrosis Wheezing H/o DVT LLE Events: Breathing on room air No respiratory distress. Continue bronchodilators/Pulmicort Stop Mucomyst Completed antibiotic course Incentive spirometry Antitussive for cough. Accu-Cheks, ISS GI prophylaxis w/ Protonix Pain control Avoid oversedation Head of bed elevation Aspiration precautions Continue PT. Disposition per hospitalist. Labs and imaging reviewed. Rest of plan as noted below. Plan: Supplemental oxygen PRN Titrate to keep O2 sats above 92%. Pressors as necessary for hemodynamic support - currently off Titrate to keep mean arterial pressure greater than 65 mmHg. Continue bronchodilators. Continue antibiotics Incentive spirometry HOB elevation Aspiration precautions Monitor renal function. Monitor electrolytes. Supplement as necessary. Monitor ins and outs. DVT prophylaxis. Prognosis: Poor given patient's multiple co-morbidities. Rest of plan per hospitalist and other consultants. Thank you Dr. Isabel Dey MD, for allowing me to participate in this patient's care. Further recommendations will depend on the patient's clinical course. Please do not hesitate to contact me if you have any questions or concerns. This medical document was created using an electronic medical record system with [employer] dictation system. Although these documentations are being carefully reviewed, there may still be some phonetic and typographical changes. The errors are purely typographical, due to imperfection on the software program, and do not reflect any compromise in the patient's medical care. Dietary Evaluation Review Comments: 1. Continue current diet regime 2. [place] pt's food preferences 3. Consider add nepro bid (840kcal, 38g pro) for increase PO intake Expected Outcomes/Goals: 1. Pt will consume >75% of estimated needs within 3-5 days Plan discussed with: Patient, Other (MAYCOL Ontiveros) IRIS LOREDO MD Feb 13, 2024 21:52
[2024-02-14] VITALS (18 sets, daily range): BP systolic 95–122; BP diastolic 38–67; PULSE 73–96; RESP 14–21; TEMP 97.5–98.3; O2SAT 93–100
--- NOTE | 2024-02-14 09:18 | DVHPN2 ---
Subjective Edema is better Changes from previous H/P or p: Changes Eyes: No Pain, No Vision change, No Conjunctivae inflammation, No Eyelid inflammation, No Other, No Redness ENT: No Ear pain, No Ear discharge, No Nose pain, No Nose discharge, No Nose congestion, No Mouth pain, No Mouth swelling, No Throat pain, No Throat swelling, No Other Cardiovascular: Chest Pain, Palpitations Respiratory: Cough, Shortness of breath Gastrointestinal: No Nausea, No Vomiting, No Abdominal Pain, No Diarrhea, No Constipation, No Melena, No Hematochezia, No Other Genitourinary: No Dysuria, No Frequency, No Incontinence, No Hematuria, No Retention, No Other Musculoskeletal: No other, No neck pain, No shoulder pain, No arm pain, No back pain, No hand pain, No leg pain, No foot pain Skin: No Rash, No Lesions, No Jaundice, No Bruising, No Other Objective Vitals Vital Signs Date Time Temp Pulse Resp B/P (MAP) Pulse Ox O2 Delivery O2 Flow Rate FiO2 02/14/24 06:34 80 14 94 02/14/24 06:23 Nasal Cannula 2.0 02/14/24 06:23 28 02/14/24 05:00 97.5 117/46 (69) 97.5 Intake/Output Intake and Output 02/14/24 07:00 Intake Total 2145 ml Output Total 4375 ml Balance -2230 ml Intake Oral 2095 ml IV Total 50 ml Output Urine Total 4375 ml General Appearance: Alert, Other (somenolent) Lungs: Clear to auscultation, Normal air movement Cardiovascular: Regular rate, Normal S1, Normal S2 Abdomen: Normal bowel sounds, Soft, No tenderness Extremities: Other (1+edema bilaterally) Medications Current Medications Medications Dose Ordered Sig/Ariella Route Start Time Stop Time Status Last Admin Dose Admin Dextrose 50 ml UD PRN IV 02/02/24 19:15 Al Hydrox/Mg Hydrox/Simethicone 30 ml Q6HP PRN PO 02/02/24 19:15 Acetaminophen 650 mg Q6HP PRN PO 02/02/24 19:15 02/14/24 04:21 650 MG Ondansetron HCl 4 mg Q4HP PRN IV 02/02/24 19:15 02/11/24 02:26 4 MG Pantoprazole Sodium 40 mg DAILY IV 02/04/24 10:00 02/13/24 09:17 40 MG Diagnostic Test (Pha) 1 strip ACHS 02/03/24 17:00 02/14/24 06:15 1 STRIP Insulin Human Regular ACHS SC 02/03/24 17:00 02/14/24 06:14 3 UNITS Enteral Nutritional Formula 240 ml BID PO 02/05/24 22:00 02/13/24 21:25 240 ML Budesonide 0.5 mg BID NEB 02/05/24 22:00 02/14/24 06:24 0.5 MG Ipratropium [place] 0.5 mg Q6HR NEB 02/06/24 00:00 02/14/24 06:23 0.5 MG Levalbuterol HCl 1.25 mg Q6HR NEB 02/06/24 00:00 02/14/24 06:24 1.25 MG Guaifenesin/ Dextromethorphan 10 ml Q6HP PRN PO 02/13/24 00:45 02/13/24 11:54 10 ML Furosemide 40 mg BIDD IV 02/14/24 10:00 Laboratory Results Laboratory Tests 02/10/24 04:29 Urinalysis Test 02/02/24 16:00 02/07/24 13:56 Urine Amorphous Crystals Few /hpf (None Seen) Urine Color Yellow (Yellow) Urine Clarity Turbid (Clear) H Urine pH 5.5 (5.0-9.0) Urine Specific Alpha 1.018 (1.001-1.035) Urine Protein 1+ (Negative) H Urine Ketones Negative (Negative) Urine Blood 3+ /uL (Negative) H Urine Nitrite Negative (Negative) Urine Bilirubin Negative (Negative) Urine Urobilinogen Normal mg/dL (Negative) Urine Leukocyte Esterase 3+ /uL (Negative) Urine RBC 98 /hpf (0 - 4) Urine WBC 126 /hpf (0 - 5) Urine Squamous Epithelial Cells Few /hpf (<5) Urine Bacteria Few /hpf (None Seen) H Urine Mucus Few (None Seen) Urine Creatinine 70.94 mg/dL (30.0-125.0) Urine Protein/Creatinine Ratio 1.80 Urine Sodium 60 mmol/L (40-220) Urine Glucose Normal mg/dL (Normal) Urine Total Protein 127.8 mg/dL (1-14) H Microbiology Microbiology Date/Time Source Procedure Growth Status 02/05/24 15:43 Nose MRSA Screen - Final Methicillin Resistant S.aureus Complete 02/05/24 13:05 Blood Blood Culture - Final NO GROWTH AFTER 5 DAYS OF INCUBATION. Complete 02/02/24 16:00 Urine - [place] Urine Culture - Final Klebsiella pneumoniae Complete Assessment/Plan Assessment/Plan МАРИЯ Intractable N/V/D UTI h/o DVT LLE Hypothyroidism DM2 Dyslipidemia Thrombocytopenia PLAN: IV fluids Vasopressors IV antibiotics: Rocephin and Flagyl Protonix Discussed with daughter over the phone DNR DC Lasix DC Metoprolol DC Midodrine 02/04/2024: Continue vasopressors as needed Continue Rocephin IV Continue IV fluids Add sodium bicarbonate drip to correct the metabolic acidosis Nephrology consultation Avoid NSAIDs and contrast and [place] or arbs DNR Discussed with the family at the bedside 02/05/2024: Continue Levophed drip Continue IV Rocephin Continue IV fluids with D5 NS with sodium bicarbonate Nephrology consult DNR Add doxycycline IV 02/06/24: More alert Replace K+ and Mg Check BLE venous doppler Continue IV fluids with sodium bicarbonate Levophed drip as needed IV Rocephin and doxycycline DNR Kidney ultrasound UTI with Klebsiella pneumoniae 02/07/2024: Kidney function is improving Continue IV fluids Swallow eval Start diet when the swallow eval is done She is much more alert and oriented Physical therapy Thrombocytopenia due to sepsis Sepsis Order home health physical therapy Hypernatremia: Change IV fluids to half NS, starts p.o. intake Discussed with the family at the bedside 02/08/2024: Physical therapy today Out of bed as tolerated Plan to go home in 1-2 days once she is out of bed Discontinue the central line Keep the [place] catheter in for now 02/09/2024: Continue physical therapy Continue to monitor the thrombocytopenia Continue Rocephin and doxycycline Discontinue the IV fluids 02/13/2024: Diastolic heart failure, acute on chronic: Start Lasix 40 mg IV twice a day Stop the IV antibiotics Thrombocytopenia is better Kidney function is normal Continue physical therapy Keep the hospital 1 more day Discharge planning for tomorrow 02/14/24: DC [place] Edema is better Continue IV Lasix Out of bed as tolerated DC Home tomorrow Plan discussed with: Patient My Orders Orders - XAVIER AIKEN MD Procedure Category Date Status Time Furosemide Injection PHA 02/14/24 In Process (Lasix Injection) 10:00 Basic Metabolic Panel LAB 02/14/24 Logged 09:12 Date of Service: Feb 14, 2024 Billing Provider: XAVIER AIKEN MD Common Visit Codes: NOT BILLABLE XAVIER AIKEN MD Feb 14, 2024 09:18
[2024-02-14] MEDS: FUROSEMIDE 40 MG/4 ML VIAL IV SCH (10:40)
[2024-02-14 12:22] LABS: Chloride 106 mmol/L (98-107); Potassium 4.2 mmol/L (3.5-5.1); Sodium 143 mmol/L (136-145)
[2024-02-14 12:23] LABS: Anion Gap 10 (5-15); Carbon Dioxide 27 mmol/L (20-31)
[2024-02-14 12:24] LABS: Calcium 8.9 mg/dL (8.7-10.4)
[2024-02-14 12:29] LABS: BUN/Creatinine Ratio 22.5 (10.0-20.0); Blood Urea Nitrogen 23 mg/dL (9-23); Glucose 143 mg/dL (74-106)
--- NOTE | 2024-02-14 18:46 | DVHPN2 ---
Progress Note - Dictate Date Seen: Feb 14, 2024 Medical Necessity Reason Pt with a Central, PICC or Fol: Yes The following are medically ne: Frey Catheter Reason for frey catheter: Strict I&O Subjective Patient was seen and evaluated in follow up. Patient reports feeling better today. Patients edema is improving. Patient is continued on Lasix. She denies any chest pain. vital signs Vital Sign Date Time Temp Pulse Resp B/P (MAP) Pulse Ox O2 Delivery O2 Flow Rate FiO2 02/14/24 16:33 98.1 84 19 95/38 (57) 97 98.1 02/14/24 11:45 Nasal Cannula* 2 28 Total Intake and Output 02/13/24 02/13/24 02/14/24 15:00 23:00 07:00 Intake Total 50 ml 1177 ml 918 ml Output Total 1300 ml 3075 ml Balance 50 ml -123 ml -2157 ml medications Current Medications Medications Dose Ordered Sig/Ariella Route Start Time Stop Time Status Last Admin Dose Admin Dextrose 50 ml UD PRN IV 02/02/24 19:15 Al Hydrox/Mg Hydrox/Simethicone 30 ml Q6HP PRN PO 02/02/24 19:15 Acetaminophen 650 mg Q6HP PRN PO 02/02/24 19:15 02/14/24 04:21 650 MG Ondansetron HCl 4 mg Q4HP PRN IV 02/02/24 19:15 02/11/24 02:26 4 MG Pantoprazole Sodium 40 mg DAILY IV 02/04/24 10:00 02/14/24 10:39 40 MG Diagnostic Test (Pha) 1 strip ACHS 02/03/24 17:00 02/14/24 17:08 1 STRIP Insulin Human Regular ACHS SC 02/03/24 17:00 02/14/24 12:09 2 UNITS Enteral Nutritional Formula 240 ml BID PO 02/05/24 22:00 02/14/24 10:39 240 ML Budesonide 0.5 mg BID NEB 02/05/24 22:00 02/14/24 06:24 0.5 MG Ipratropium [place] 0.5 mg Q6HR NEB 02/06/24 00:00 02/14/24 11:45 0.5 MG Levalbuterol HCl 1.25 mg Q6HR NEB 02/06/24 00:00 02/14/24 11:45 1.25 MG Guaifenesin/ Dextromethorphan 10 ml Q6HP PRN PO 02/13/24 00:45 02/13/24 11:54 10 ML Furosemide 40 mg BIDD IV 02/14/24 10:00 02/14/24 10:40 40 MG objective GENERAL: Awake, alert, oriented. Morbidly obese. LUNGS: Clear. CARDIOVASCULAR: Heart sounds are good. ABDOMEN: Soft. laboratory and microbiology Laboratory Tests 02/14/24 11:38 02/10/24 04:29 Test 02/14/24 11:38 Range/Units Serum Glucose 143 H 74-106 mg/dL Problem List Syncope, rule out cardiac etiology. NTEMI type II secondary to urosepsis. History of hypertension now with hypotension. Hyperlipidemia. Thrombocytopenia. History of left lower extremity DV. Type 2 diabetes mellitus. Hypothyroidism. Chronic kidney disease. Obesity. Diastolic heart failure, acute on chronic. Assessment/Plan Continued all current supportive medical care. IV antibiotics as ordered. GI prophylactics. Morphine for pain management. Additional plan as per the hospital course. Dietary Evaluation Review Comments: 1. Continue current diet regime 2. [place] pt's food preferences 3. Consider add nepro bid (840kcal, 38g pro) for increase PO intake Expected Outcomes/Goals: 1. Pt will consume >75% of estimated needs within 3-5 days Plan discussed with: Patient BIBIANA AVILA MD Feb 14, 2024 18:45
--- NOTE | 2024-02-14 19:08 | DVHPN2 ---
Progress Note - Dictate Date Seen: Feb 14, 2024 Medical Necessity Reason Pt with a Central, PICC or Fol: Yes The following are medically ne: Frey Catheter Reason for frey catheter: Strict I&O Subjective Patient seen and examined at bedside. Breathing on room air Overnight events reviewed. vital signs Vital Sign Date Time Temp Pulse Resp B/P (MAP) Pulse Ox O2 Delivery O2 Flow Rate FiO2 02/14/24 16:33 98.1 84 19 95/38 (57) 97 98.1 02/14/24 11:45 Nasal Cannula* 2 28 Total Intake and Output 02/13/24 02/13/24 02/14/24 15:00 23:00 07:00 Intake Total 50 ml 1177 ml 918 ml Output Total 1300 ml 3075 ml Balance 50 ml -123 ml -2157 ml medications Current Medications Medications Dose Ordered Sig/Ariella Route Start Time Stop Time Status Last Admin Dose Admin Dextrose 50 ml UD PRN IV 02/02/24 19:15 Al Hydrox/Mg Hydrox/Simethicone 30 ml Q6HP PRN PO 02/02/24 19:15 Acetaminophen 650 mg Q6HP PRN PO 02/02/24 19:15 02/14/24 04:21 650 MG Ondansetron HCl 4 mg Q4HP PRN IV 02/02/24 19:15 02/11/24 02:26 4 MG Pantoprazole Sodium 40 mg DAILY IV 02/04/24 10:00 02/14/24 10:39 40 MG Diagnostic Test (Pha) 1 strip ACHS 02/03/24 17:00 02/14/24 17:08 1 STRIP Insulin Human Regular ACHS SC 02/03/24 17:00 02/14/24 12:09 2 UNITS Enteral Nutritional Formula 240 ml BID PO 02/05/24 22:00 02/14/24 10:39 240 ML Budesonide 0.5 mg BID NEB 02/05/24 22:00 02/14/24 06:24 0.5 MG Ipratropium [place] 0.5 mg Q6HR NEB 02/06/24 00:00 02/14/24 11:45 0.5 MG Levalbuterol HCl 1.25 mg Q6HR NEB 02/06/24 00:00 02/14/24 11:45 1.25 MG Guaifenesin/ Dextromethorphan 10 ml Q6HP PRN PO 02/13/24 00:45 02/13/24 11:54 10 ML Furosemide 40 mg BIDD IV 02/14/24 10:00 02/14/24 10:40 40 MG objective Gen.: Patient lying in bed in no apparent distress. On room air. Head: Normocephalic, atraumatic. Eyes: EOMI/PERRLA. Ears: Normal hearing. Normal anatomy. Neck/trachea: Trachea midline, supple. Nose: Normal external anatomy. Mouth: Moist mucous membranes. Chest: Decreased air entry bilaterally. No wheezing or rhonchi. Cardiovascular: Positive S1, positive S2. Regular rate and rhythm. Abdomen: Positive bowel sounds in all 4 quadrants. Soft, non-tender, non- distended. : Deferred. Rectal: Deferred. Skin: Warm, dry. Intact. Extremities: 2+ radial pulses bilaterally. No lower extremity edema. Neuro: Awake, alert, oriented x3. No gross motor or sensory deficits. Cranial nerves II through XII intact. Gait not assessed. laboratory and microbiology Laboratory Tests 02/14/24 11:38 02/10/24 04:29 Test 02/14/24 11:38 Range/Units Serum Glucose 143 H 74-106 mg/dL Assessment/Plan Impression: Acute hypoxic respiratory failure Acute Exacerbation COPD Shock, likely septic due to UTI CHF exacerbation Metabolic acidosis Acute metabolic encephalopathy Hydronephrosis Wheezing H/o DVT LLE Events: Breathing on room air No respiratory distress. Discontinue Frey catheter. Continue bronchodilators/Pulmicort Completed antibiotic course Incentive spirometry Antitussive for cough. Pain control Avoid oversedation Head of bed elevation Aspiration precautions Patient is stable for discharge from the pulmonary standpoint. Disposition per hospitalist. Labs and imaging reviewed. Rest of plan as noted below. Plan: Supplemental oxygen PRN Titrate to keep O2 sats above 92%. Pressors as necessary for hemodynamic support - currently off Titrate to keep mean arterial pressure greater than 65 mmHg. Continue bronchodilators. Completed antibiotics Incentive spirometry HOB elevation Aspiration precautions Monitor renal function. Monitor electrolytes. Supplement as necessary. Monitor ins and outs. GI prophylaxis -Protonix DVT prophylaxis. Prognosis: Poor given patient's multiple co-morbidities. Rest of plan per hospitalist and other consultants. Thank you Dr. Isabel Dey MD, for allowing me to participate in this patient's care. Further recommendations will depend on the patient's clinical course. Please do not hesitate to contact me if you have any questions or concerns. This medical document was created using an electronic medical record system with [employer] dictation system. Although these documentations are being carefully reviewed, there may still be some phonetic and typographical changes. The errors are purely typographical, due to imperfection on the software program, and do not reflect any compromise in the patient's medical care. Dietary Evaluation Review Comments: 1. Continue current diet regime 2. [place] pt's food preferences 3. Consider add nepro bid (840kcal, 38g pro) for increase PO intake Expected Outcomes/Goals: 1. Pt will consume >75% of estimated needs within 3-5 days Plan discussed with: Patient, Other (MAYCOL Ontiveros) IRIS LOREDO MD Feb 14, 2024 19:08
[2024-02-15] VITALS (15 sets, daily range): BP systolic 107–183; BP diastolic 52–98; PULSE 73–101; RESP 17–21; TEMP 97.5–98.4; O2SAT 90–100
[2024-02-15 06:39] LABS: Basophils # (auto) 0.1 10 ^3/uL (0-0.2); Basophils % (auto) 0.9 % (0.0-2.0); Eosinophils # (auto) 0.1 10 ^3/uL (0-0.8); Eosinophils % (auto) 1.5 % (0.0-7.0); Hematocrit 28.8 % (36.0-46.0); Hemoglobin 9.5 g/dL (12.2-16.2); Lymphocytes # (auto) 1.8 10 ^3/uL (0.4-5.4); Lymphocytes % (auto) 30.3 % (10.0-50.0); Mean Corpuscular Hemoglobin 30.4 pg (28.0-32.0); Mean Corpuscular Volume 92.2 fL (80.0-100.0); Monocytes # (auto) 0.4 10 ^3/uL (0-1.3); Monocytes % (auto) 6.8 % (0.0-12.0); Neutrophils # (auto) 3.6 10 ^3/uL (1.6-8.6); Neutrophils % (auto) 60.5 % (37.0-80.0); Nucleated Red Blood Cells % 0.1 %; Platelet Count (auto) 167 10^3/uL (140-450); Red Blood Cells 3.13 10^6/uL (4.0-5.20); Red Cell Distribution Width 17.9 % (11.8-14.3); White Blood Cell 5.9 10^3/uL (4.4-10.8)
[2024-02-15 06:48] LABS: Alanine Aminotransferase 17 U/L (7-40); Anion Gap 7 (5-15); Aspartate Aminotransferase 17 U/L (13-40); BUN/Creatinine Ratio 16.7 (10.0-20.0); Bilirubin, Total 0.5 mg/dL (0.2-1.0); Blood Urea Nitrogen 18 mg/dL (9-23); Calcium 8.8 mg/dL (8.7-10.4); Carbon Dioxide 29 mmol/L (20-31); Chloride 105 mmol/L (98-107); Potassium 3.9 mmol/L (3.5-5.1); Sodium 141 mmol/L (136-145); Total Protein 6.2 g/dL (5.7-8.2)
[2024-02-15 06:55] LABS: Alkaline Phosphatase 171 U/L (46-116); Glucose 116 mg/dL (74-106); Magnesium 1.4 mg/dL (1.6-2.6)
[2024-02-15] MEDS: MAGNESIUM OXIDE 400 MG TAB PO ONE (09:23)
[2024-02-15] MEDS: MAALOX PLUS or MAALOX 30 ML PO PRN (09:30)
--- NOTE | 2024-02-15 10:10 | DVHPN2 ---
Subjective Still has significant edema in her legs It appears she is consuming a lot of fluids Changes from previous H/P or p: Changes Eyes: No Pain, No Vision change, No Conjunctivae inflammation, No Eyelid inflammation, No Other, No Redness ENT: No Ear pain, No Ear discharge, No Nose pain, No Nose discharge, No Nose congestion, No Mouth pain, No Mouth swelling, No Throat pain, No Throat swelling, No Other Cardiovascular: Chest Pain, Palpitations Respiratory: Cough, Shortness of breath Gastrointestinal: No Nausea, No Vomiting, No Abdominal Pain, No Diarrhea, No Constipation, No Melena, No Hematochezia, No Other Genitourinary: No Dysuria, No Frequency, No Incontinence, No Hematuria, No Retention, No Other Musculoskeletal: No other, No neck pain, No shoulder pain, No arm pain, No back pain, No hand pain, No leg pain, No foot pain Skin: No Rash, No Lesions, No Jaundice, No Bruising, No Other Objective Vitals Vital Signs Date Time Temp Pulse Resp B/P (MAP) Pulse Ox O2 Delivery O2 Flow Rate FiO2 02/15/24 09:00 97.7 88 19 107/67 (80) 96 97.7 02/15/24 08:00 Nasal Cannula* 2 28 Intake/Output Intake and Output 02/15/24 07:00 Intake Total 1788 ml Output Total 2375 ml Balance -587 ml Intake Oral 1788 ml Output Urine Total 2375 ml # Voids 7 # Bowel Movements 4 General Appearance: Alert, Other (somenolent) Lungs: Clear to auscultation, Normal air movement Cardiovascular: Regular rate, Normal S1, Normal S2 Abdomen: Normal bowel sounds, Soft, No tenderness Extremities: Other (1+edema bilaterally) Medications Current Medications Medications Dose Ordered Sig/Ariella Route Start Time Stop Time Status Last Admin Dose Admin Dextrose 50 ml UD PRN IV 02/02/24 19:15 Al Hydrox/Mg Hydrox/Simethicone 30 ml Q6HP PRN PO 02/02/24 19:15 02/15/24 09:30 30 ML Acetaminophen 650 mg Q6HP PRN PO 02/02/24 19:15 02/15/24 04:49 650 MG Ondansetron HCl 4 mg Q4HP PRN IV 02/02/24 19:15 02/11/24 02:26 4 MG Pantoprazole Sodium 40 mg DAILY IV 02/04/24 10:00 02/15/24 09:23 40 MG Diagnostic Test (Pha) 1 strip ACHS 02/03/24 17:00 02/15/24 07:00 1 STRIP Insulin Human Regular ACHS SC 02/03/24 17:00 02/14/24 12:09 2 UNITS Enteral Nutritional Formula 240 ml BID PO 02/05/24 22:00 02/15/24 09:27 240 ML Budesonide 0.5 mg BID NEB 02/05/24 22:00 02/15/24 07:47 0.5 MG Ipratropium [place] 0.5 mg Q6HR NEB 02/06/24 00:00 02/15/24 07:47 0.5 MG Levalbuterol HCl 1.25 mg Q6HR NEB 02/06/24 00:00 02/15/24 07:47 1.25 MG Guaifenesin/ Dextromethorphan 10 ml Q6HP PRN PO 02/13/24 00:45 02/13/24 11:54 10 ML Furosemide 40 mg BIDD IV 02/14/24 10:00 02/14/24 10:40 40 MG Laboratory Results Laboratory Tests 02/15/24 06:10 Chemistry Test 02/14/24 11:38 02/15/24 06:10 Calcium Level 8.9 mg/dL (8.7-10.4) 8.8 mg/dL (8.7-10.4) Albumin 3.0 g/dL (3.2-4.8) L Magnesium Level 1.4 mg/dL (1.6-2.6) L Total Protein 6.2 g/dL (5.7-8.2) LFT Test 02/15/24 06:10 Alanine Aminotransferase (ALT) 17 U/L (7-40) Alkaline Phosphatase 171 U/L (46-116) H Aspartate Amino Transferase (AST) 17 U/L (13-40) Total Bilirubin 0.5 mg/dL (0.2-1.0) Urinalysis Test 02/02/24 16:00 02/07/24 13:56 Urine Amorphous Crystals Few /hpf (None Seen) Urine Color Yellow (Yellow) Urine Clarity Turbid (Clear) H Urine pH 5.5 (5.0-9.0) Urine Specific [place] 1.018 (1.001-1.035) Urine Protein 1+ (Negative) H Urine Ketones Negative (Negative) Urine Blood 3+ /uL (Negative) H Urine Nitrite Negative (Negative) Urine Bilirubin Negative (Negative) Urine Urobilinogen Normal mg/dL (Negative) Urine Leukocyte Esterase 3+ /uL (Negative) Urine RBC 98 /hpf (0 - 4) Urine WBC 126 /hpf (0 - 5) Urine Squamous Epithelial Cells Few /hpf (<5) Urine Bacteria Few /hpf (None Seen) H Urine Mucus Few (None Seen) Urine Creatinine 70.94 mg/dL (30.0-125.0) Urine Protein/Creatinine Ratio 1.80 Urine Sodium 60 mmol/L (40-220) Urine Glucose Normal mg/dL (Normal) Urine Total Protein 127.8 mg/dL (1-14) H Microbiology Microbiology Date/Time Source Procedure Growth Status 02/05/24 15:43 Nose MRSA Screen - Final Methicillin Resistant S.aureus Complete 02/05/24 13:05 Blood Blood Culture - Final NO GROWTH AFTER 5 DAYS OF INCUBATION. Complete 02/02/24 16:00 Urine - [place] Urine Culture - Final Klebsiella pneumoniae Complete Assessment/Plan Assessment/Plan МАРИЯ Intractable N/V/D UTI h/o DVT LLE Hypothyroidism DM2 Dyslipidemia Thrombocytopenia PLAN: IV fluids Vasopressors IV antibiotics: Rocephin and Flagyl Protonix Discussed with daughter over the phone DNR DC Lasix DC Metoprolol DC Midodrine 02/04/2024: Continue vasopressors as needed Continue Rocephin IV Continue IV fluids Add sodium bicarbonate drip to correct the metabolic acidosis Nephrology consultation Avoid NSAIDs and contrast and Shlomo or arbs DNR Discussed with the family at the bedside 02/05/2024: Continue Levophed drip Continue IV Rocephin Continue IV fluids with D5 NS with sodium bicarbonate Nephrology consult DNR Add doxycycline IV 02/06/24: More alert Replace K+ and Mg Check BLE venous doppler Continue IV fluids with sodium bicarbonate Levophed drip as needed IV Rocephin and doxycycline DNR Kidney ultrasound UTI with Klebsiella pneumoniae 02/07/2024: Kidney function is improving Continue IV fluids Swallow eval Start diet when the swallow eval is done She is much more alert and oriented Physical therapy Thrombocytopenia due to sepsis Sepsis Order home health physical therapy Hypernatremia: Change IV fluids to half NS, starts p.o. intake Discussed with the family at the bedside 02/08/2024: Physical therapy today Out of bed as tolerated Plan to go home in 1-2 days once she is out of bed Discontinue the central line Keep the Lehman catheter in for now 02/09/2024: Continue physical therapy Continue to monitor the thrombocytopenia Continue Rocephin and doxycycline Discontinue the IV fluids 02/13/2024: Diastolic heart failure, acute on chronic: Start Lasix 40 mg IV twice a day Stop the IV antibiotics Thrombocytopenia is better Kidney function is normal Continue physical therapy Keep the hospital 1 more day Discharge planning for tomorrow 02/14/24: DC Lehman Edema is better Continue IV Lasix Out of bed as tolerated DC Home tomorrow 02/15/2024: The patient is still has significant edema and she only received 1 dose of Lasix so far She is consuming plenty of fluids We will have to order fluid restriction 1.2 L a day Continue Lasix 40 mg twice a day Observe the patient in the hospital 1 more day Plan discussed with: Patient My Orders Orders - XAVIER AIKEN MD Procedure Category Date Status Time Basic Metabolic Panel LAB 02/16/24 Verified 04:00 Magnesium LAB 02/16/24 Verified 04:00 Maintain Fluid DEMETRI 02/15/24 Transmitted Restrictions 10:07 Date of Service: Feb 15, 2024 Billing Provider: XAVIER AIKEN MD Common Visit Codes: NOT BILLABLE XAVIER AIKEN MD Feb 15, 2024 10:10
--- NOTE | 2024-02-15 17:38 | DVHPN2 ---
Progress Note - Dictate Date Seen: Feb 15, 2024 Medical Necessity Reason Pt with a Central, PICC or Fol: Yes The following are medically ne: Frey Catheter Reason for frey catheter: Strict I&O Subjective Patient was seen and evaluated in follow up. No overnight events. Patient still has significant edema in her legs, patient has been counseled on fluid restriction. Patient receiving Lasix. HGB 9.5, HCT 28.8. vital signs Vital Sign Date Time Temp Pulse Resp B/P (MAP) Pulse Ox O2 Delivery O2 Flow Rate FiO2 02/15/24 12:32 79 18 100 02/15/24 12:26 Room Air* 0 21 02/15/24 10:36 107/67 02/15/24 09:00 97.7 97.7 Total Intake and Output 02/14/24 02/14/24 02/15/24 15:00 23:00 07:00 Intake Total 654 ml 1134 ml Output Total 2375 ml Balance 654 ml -1241 ml medications Current Medications Medications Dose Ordered Sig/Ariella Route Start Time Stop Time Status Last Admin Dose Admin Dextrose 50 ml UD PRN IV 02/02/24 19:15 Al Hydrox/Mg Hydrox/Simethicone 30 ml Q6HP PRN PO 02/02/24 19:15 02/15/24 09:30 30 ML Acetaminophen 650 mg Q6HP PRN PO 02/02/24 19:15 02/15/24 04:49 650 MG Ondansetron HCl 4 mg Q4HP PRN IV 02/02/24 19:15 02/11/24 02:26 4 MG Pantoprazole Sodium 40 mg DAILY IV 02/04/24 10:00 02/15/24 09:23 40 MG Diagnostic Test (Pha) 1 strip ACHS 02/03/24 17:00 02/15/24 12:40 1 STRIP Insulin Human Regular ACHS SC 02/03/24 17:00 02/14/24 12:09 2 UNITS Enteral Nutritional Formula 240 ml BID PO 02/05/24 22:00 02/15/24 09:27 240 ML Budesonide 0.5 mg BID NEB 02/05/24 22:00 02/15/24 07:47 0.5 MG Ipratropium [place] 0.5 mg Q6HR NEB 02/06/24 00:00 02/15/24 12:26 0.5 MG Levalbuterol HCl 1.25 mg Q6HR NEB 02/06/24 00:00 02/15/24 12:26 1.25 MG Guaifenesin/ Dextromethorphan 10 ml Q6HP PRN PO 02/13/24 00:45 02/13/24 11:54 10 ML Furosemide 40 mg BIDD IV 02/14/24 10:00 02/15/24 10:36 40 MG objective GENERAL: Awake, alert, oriented. Morbidly obese. LUNGS: Clear. CARDIOVASCULAR: Heart sounds are good. ABDOMEN: Soft. laboratory and microbiology Laboratory Tests 02/15/24 06:10 Test 02/15/24 06:10 Range/Units Serum Glucose 116 H 74-106 mg/dL Problem List Syncope, rule out cardiac etiology. NTEMI type II secondary to urosepsis. History of hypertension now with hypotension. Hyperlipidemia. Thrombocytopenia. History of left lower extremity DV. Type 2 diabetes mellitus. Hypothyroidism. Chronic kidney disease. Obesity. Diastolic heart failure, acute on chronic. Assessment/Plan Continued all current supportive medical care. IV antibiotics as ordered. GI prophylactics. Morphine for pain management. Additional plan as per the hospital course. Dietary Evaluation Review Comments: 1. Continue current diet regime 2. [place] pt's food preferences 3. Consider add nepro bid (840kcal, 38g pro) for increase PO intake Expected Outcomes/Goals: 1. Pt will consume >75% of estimated needs within 3-5 days Plan discussed with: Patient BIBIANA AVILA MD Feb 15, 2024 13:53
--- NOTE | 2024-02-15 20:47 | DVHPN2 ---
Progress Note - Dictate Date Seen: Feb 15, 2024 Medical Necessity Reason Pt with a Central, PICC or Fol: No Subjective Patient seen and examined at bedside. Breathing on room air Overnight events reviewed. vital signs Vital Sign Date Time Temp Pulse Resp B/P (MAP) Pulse Ox O2 Delivery O2 Flow Rate FiO2 02/15/24 19:56 81 18 100 02/15/24 19:49 Room Air 02/15/24 19:49 0 21 02/15/24 17:00 97.5 134/59 (84) 97.5 Total Intake and Output 02/14/24 02/14/24 02/15/24 15:00 23:00 07:00 Intake Total 654 ml 1134 ml Output Total 2375 ml Balance 654 ml -1241 ml medications Current Medications Medications Dose Ordered Sig/Ariella Route Start Time Stop Time Status Last Admin Dose Admin Dextrose 50 ml UD PRN IV 02/02/24 19:15 Al Hydrox/Mg Hydrox/Simethicone 30 ml Q6HP PRN PO 02/02/24 19:15 02/15/24 09:30 30 ML Acetaminophen 650 mg Q6HP PRN PO 02/02/24 19:15 02/15/24 04:49 650 MG Ondansetron HCl 4 mg Q4HP PRN IV 02/02/24 19:15 02/11/24 02:26 4 MG Pantoprazole Sodium 40 mg DAILY IV 02/04/24 10:00 02/15/24 09:23 40 MG Diagnostic Test (Pha) 1 strip ACHS 02/03/24 17:00 02/15/24 17:05 1 STRIP Insulin Human Regular ACHS SC 02/03/24 17:00 02/14/24 12:09 2 UNITS Enteral Nutritional Formula 240 ml BID PO 02/05/24 22:00 02/15/24 09:27 240 ML Budesonide 0.5 mg BID NEB 02/05/24 22:00 02/15/24 19:48 0.5 MG Ipratropium [place] 0.5 mg Q6HR NEB 02/06/24 00:00 02/15/24 19:48 0.5 MG Levalbuterol HCl 1.25 mg Q6HR NEB 02/06/24 00:00 02/15/24 19:49 1.25 MG Guaifenesin/ Dextromethorphan 10 ml Q6HP PRN PO 02/13/24 00:45 02/13/24 11:54 10 ML Furosemide 40 mg BIDD IV 02/14/24 10:00 02/15/24 17:00 40 MG objective Gen.: Patient lying in bed in no apparent distress. On room air. Head: Normocephalic, atraumatic. Eyes: EOMI/PERRLA. Ears: Normal hearing. Normal anatomy. Neck/trachea: Trachea midline, supple. Nose: Normal external anatomy. Mouth: Moist mucous membranes. Chest: Decreased air entry bilaterally. No wheezing or rhonchi. Cardiovascular: Positive S1, positive S2. Regular rate and rhythm. Abdomen: Positive bowel sounds in all 4 quadrants. Soft, non-tender, non- distended. : Deferred. Rectal: Deferred. Skin: Warm, dry. Intact. Extremities: 2+ radial pulses bilaterally. No lower extremity edema. Neuro: Awake, alert, oriented x3. No gross motor or sensory deficits. Cranial nerves II through XII intact. Gait not assessed. laboratory and microbiology Laboratory Tests 02/15/24 06:10 Test 02/15/24 06:10 Range/Units Serum Glucose 116 H 74-106 mg/dL Assessment/Plan Impression: Acute hypoxic respiratory failure Acute Exacerbation COPD Shock, likely septic due to UTI CHF exacerbation Metabolic acidosis Acute metabolic encephalopathy Hydronephrosis Wheezing H/o DVT LLE Events: Breathing on room air No respiratory distress. Lehman catheter discontinued. Continue Lasix for diuresis Fluid restriction Monitor renal function. Continue bronchodilators/Pulmicort Completed antibiotic course Incentive spirometry Antitussive for cough. Pain control Avoid oversedation Head of bed elevation Aspiration precautions Physical therapy. Protonix for GI prophylaxis. Patient is stable for discharge from the pulmonary standpoint. Disposition per hospitalist. Labs and imaging reviewed. Rest of plan as noted below. Plan: Supplemental oxygen PRN Titrate to keep O2 sats above 92%. Pressors as necessary for hemodynamic support - currently off Titrate to keep mean arterial pressure greater than 65 mmHg. Continue bronchodilators. Completed antibiotics Incentive spirometry HOB elevation Aspiration precautions Monitor renal function. Monitor electrolytes. Supplement as necessary. Monitor ins and outs. GI prophylaxis -Protonix DVT prophylaxis. Prognosis: Poor given patient's multiple co-morbidities. Rest of plan per hospitalist and other consultants. Thank you Dr. Isabel Dey MD, for allowing me to participate in this patient's care. Further recommendations will depend on the patient's clinical course. Please do not hesitate to contact me if you have any questions or concerns. This medical document was created using an electronic medical record system with [employer] dictation system. Although these documentations are being carefully reviewed, there may still be some phonetic and typographical changes. The errors are purely typographical, due to imperfection on the software program, and do not reflect any compromise in the patient's medical care. Dietary Evaluation Review Comments: 1. Continue current diet regime 2. [place] pt's food preferences 3. Consider add nepro bid (840kcal, 38g pro) for increase PO intake Expected Outcomes/Goals: 1. Pt will consume >75% of estimated needs within 3-5 days Plan discussed with: Patient, Other (MAYCOL Stanley) IRIS LOREDO MD Feb 15, 2024 20:47
[2024-02-16] VITALS (14 sets, daily range): BP systolic 112–141; BP diastolic 53–66; PULSE 66–90; RESP 17–20; TEMP 36.6; O2SAT 93–100
[2024-02-16 06:32] LABS: Calcium 9.1 mg/dL (8.7-10.4); Chloride 104 mmol/L (98-107); Sodium 143 mmol/L (136-145)
[2024-02-16 06:33] LABS: Anion Gap 9 (5-15); Carbon Dioxide 30 mmol/L (20-31)
[2024-02-16 06:38] LABS: BUN/Creatinine Ratio 14.8 (10.0-20.0); Blood Urea Nitrogen 16 mg/dL (9-23); Glucose 106 mg/dL (74-106); Magnesium 1.7 mg/dL (1.6-2.6)
[2024-02-16 06:41] LABS: Potassium 3.4 mmol/L (3.5-5.1)
[2024-02-16] MEDS ORDERED: FURO1TAB31 PO (10:20)
[2024-02-16] MEDS: POTASSIUM CHL 20 Meq TABLET PO ONE (10:40)
--- NOTE | 2024-02-16 14:17 | DVHPN2 ---
Progress Note - Dictate Date Seen: Feb 16, 2024 Medical Necessity Reason Pt with a Central, PICC or Fol: No Subjective Patient was seen and evaluated in follow up. Patient is complaining of neck pain. Patient was given ice packs for pain management. K 3.4, CLINICAL REHAB SPECIALIST 1.08. vital signs Vital Sign Date Time Temp Pulse Resp B/P (MAP) Pulse Ox O2 Delivery O2 Flow Rate FiO2 02/16/24 11:08 36.6 90 18 96 02/16/24 09:00 124/54 (77) 02/16/24 08:47 Room Air 02/16/24 08:47 0 21 Total Intake and Output 02/15/24 02/15/24 02/16/24 15:00 23:00 07:00 Intake Total 200 ml 75 ml 300 ml Balance 200 ml 75 ml 300 ml medications Current Medications Medications Dose Ordered Sig/Ariella Route Start Time Stop Time Status Last Admin Dose Admin Dextrose 50 ml UD PRN IV 02/02/24 19:15 Al Hydrox/Mg Hydrox/Simethicone 30 ml Q6HP PRN PO 02/02/24 19:15 02/15/24 09:30 30 ML Acetaminophen 650 mg Q6HP PRN PO 02/02/24 19:15 02/15/24 21:20 650 MG Ondansetron HCl 4 mg Q4HP PRN IV 02/02/24 19:15 02/11/24 02:26 4 MG Pantoprazole Sodium 40 mg DAILY IV 02/04/24 10:00 02/16/24 10:40 40 MG Diagnostic Test (Pha) 1 strip ACHS 02/03/24 17:00 02/16/24 06:02 1 STRIP Insulin Human Regular ACHS SC 02/03/24 17:00 02/16/24 06:03 2 UNITS Enteral Nutritional Formula 240 ml BID PO 02/05/24 22:00 02/16/24 10:44 240 ML Budesonide 0.5 mg BID NEB 02/05/24 22:00 02/15/24 19:48 0.5 MG Ipratropium [place] 0.5 mg Q6HR NEB 02/06/24 00:00 02/16/24 08:47 0.5 MG Levalbuterol HCl 1.25 mg Q6HR NEB 02/06/24 00:00 02/16/24 08:47 1.25 MG Guaifenesin/ Dextromethorphan 10 ml Q6HP PRN PO 02/13/24 00:45 02/13/24 11:54 10 ML Furosemide 40 mg BIDD IV 02/14/24 10:00 02/16/24 05:11 40 MG objective GENERAL: Awake, alert, oriented. Morbidly obese. LUNGS: Clear. CARDIOVASCULAR: Heart sounds are good. ABDOMEN: Soft. laboratory and microbiology Laboratory Tests 02/16/24 04:49 02/15/24 06:10 Test 02/16/24 04:49 Range/Units Serum Glucose 106 74-106 mg/dL Problem List Syncope, rule out cardiac etiology. NTEMI type II secondary to urosepsis. History of hypertension now with hypotension. Hyperlipidemia. Thrombocytopenia. History of left lower extremity DV. Type 2 diabetes mellitus. Hypothyroidism. Chronic kidney disease. Obesity. Diastolic heart failure, acute on chronic. Assessment/Plan Continued all current supportive medical care. IV antibiotics as ordered. GI prophylactics. Morphine for pain management. Additional plan as per the hospital course. Dietary Evaluation Review Comments: 1. Continue current diet regime 2. [place] pt's food preferences 3. Consider add nepro bid (840kcal, 38g pro) for increase PO intake Expected Outcomes/Goals: 1. Pt will consume >75% of estimated needs within 3-5 days Plan discussed with: Patient BIBIANA AVILA MD Feb 16, 2024 11:57
--- NOTE | 2024-02-16 14:21 | DVHDS2 ---
Discharge Summary Date of Admission Feb 02, 2024 at 19:05 Date of Discharge: Feb 16, 2024 Labs/Diagnostic Data: Laboratory Results Test 02/16/24 11:57 02/16/24 04:49 02/15/24 06:10 02/07/24 13:56 POC Glucose 136 mg/dl (70-106) Sodium Level 143 mmol/L (136-145) Potassium Level 3.4 mmol/L (3.5-5.1) Chloride Level 104 mmol/L (98-107) Carbon Dioxide Level 30 mmol/L (20-31) Anion Gap 9 (5-15) Blood Urea Nitrogen 16 mg/dL (9-23) Creatinine 1.08 mg/dL (0.550-1.02) Glomerular Filtration Rate Calc 52 mL/min (>90) BUN/Creatinine Ratio 14.8 (10.0-20.0) Serum Glucose 106 mg/dL (74-106) Calcium Level 9.1 mg/dL (8.7-10.4) Magnesium Level 1.7 mg/dL (1.6-2.6) White Blood Count 5.9 10^3/uL (4.4-10.8) Red Blood Count 3.13 10^6/uL (4.0-5.20) Hemoglobin 9.5 g/dL (12.2-16.2) Hematocrit 28.8 % (36.0-46.0) Mean Corpuscular Volume 92.2 fL (80.0-100.0) Mean Corpuscular Hemoglobin 30.4 pg (28.0-32.0) Mean Corpuscular Hemoglobin Concent 33.0 g/dL (32.0-36.0) Red Cell Distribution Width 17.9 % (11.8-14.3) Platelet Count 167 10^3/uL (140-450) Mean Platelet Volume 9.2 fL (6.9-10.8) Neutrophils (%) (Auto) 60.5 % (37.0-80.0) Lymphocytes (%) (Auto) 30.3 % (10.0-50.0) Monocytes (%) (Auto) 6.8 % (0.0-12.0) Eosinophils (%) (Auto) 1.5 % (0.0-7.0) Basophils (%) (Auto) 0.9 % (0.0-2.0) Neutrophils # (Auto) 3.6 10 ^3/uL (1.6-8.6) Lymphocytes # (Auto) 1.8 10 ^3/uL (0.4-5.4) Monocytes # (Auto) 0.4 10 ^3/uL (0-1.3) Eosinophils # (Auto) 0.1 10 ^3/uL (0-0.8) Basophils # (Auto) 0.1 10 ^3/uL (0-0.2) Nucleated Red Blood Cells 0.1 % Total Bilirubin 0.5 mg/dL (0.2-1.0) Aspartate Amino Transferase (AST) 17 U/L (13-40) Alanine Aminotransferase (ALT) 17 U/L (7-40) Alkaline Phosphatase 171 U/L (46-116) Total Protein 6.2 g/dL (5.7-8.2) Albumin 3.0 g/dL (3.2-4.8) Urine Color Yellow (Yellow) Urine Clarity Turbid (Clear) Urine pH 5.5 (5.0-9.0) Urine Specific [place] 1.018 (1.001-1.035) Urine Protein 1+ (Negative) Urine Ketones Negative (Negative) Urine Blood 3+ /uL (Negative) Urine Nitrite Negative (Negative) Urine Bilirubin Negative (Negative) Urine Urobilinogen Normal mg/dL (Negative) Urine Leukocyte Esterase 3+ /uL (Negative) Urine RBC 98 /hpf (0 - 4) Urine WBC 126 /hpf (0 - 5) Urine Squamous Epithelial Cells Few /hpf (<5) Urine Bacteria Few /hpf (None Seen) Urine Mucus Few (None Seen) Urine Creatinine 70.94 mg/dL (30.0-125.0) Urine Protein/Creatinine Ratio 1.80 Urine Sodium 60 mmol/L (40-220) Urine Glucose Normal mg/dL (Normal) Urine Total Protein 127.8 mg/dL (1-14) Test 02/06/24 11:26 02/06/24 05:08 02/06/24 05:06 02/05/24 05:34 Phosphorus Level 1.6 mg/dL (2.4-5.1) Vitamin D 25-Hydroxy 33.7 ng/mL (30.0-100) Platelet Estimate Decreased Ovalocytes Few [place] Cells Few Parathyroid Hormone (Intact) 81.2 pg/mL (18.4-80.1) Differential Total Cells Counted 100.0 (100) Neutrophils % (Manual) 89 (37.0-80.0) Band Neutrophils % (Manual) 1 Lymphocytes % (Manual) 9 (10.0-50.0) Monocytes % (Manual) 1 (0-12) Eosinophils % (Manual) 0 (0-7) Basophils % (Manual) 0 (0.0-2.0) Metamyelocytes % (manual) 0 Myelocytes % (Manual) 0 Promyelocytes % (Manual) 0 Blast Cells % (Manual) 0 Reactive Lymphocytes 0 Triglycerides Level 241 mg/dL (< 150) Cholesterol Level 78 mg/dL (< 200) LDL Cholesterol 15 mg/dL (< 100) HDL Cholesterol < 5 mg/dL (40-59) Thyroid Stimulating Hormone (TSH) 0.77 uIU/mL (0.55-4.78) Test 02/04/24 07:06 02/04/24 04:43 02/03/24 14:30 02/02/24 20:25 Blood Gas Specimen Type Arterial Blood Gas Sample Site Right radial Blood Gas Patient Temperature 37.0 Arterial Blood Date Drawn Arterial Blood pH 7.206 (7.350-7.450) Arterial Blood Partial Pressure CO2 27.3 mmHg (32.0-45.0) Arterial Blood Partial Pressure O2 101.0 mmHg (83.0-108.0) Arterial Blood HCO3 10.6 mmol/L (21.0-28.0) Arterial Blood Oxygen Saturation 97.3 % (94.0-98.0) Arterial Blood Base Excess -15.8 mmol/L (-2.0-3.0) Arterial Blood Oxyhemoglobin 96.3 % (94.0-98.0) Arterial Blood Carboxyhemoglobin 0.4 % (0.5-1.5) Arterial Blood Methemoglobin 0.6 % (0.0-1.5) Gonzalo Test Yes Blood Gas Total Hemoglobin 12.30 g/dL (12.0-16.0) Blood Gas Liter Flow 4.00 Blood Gas Modality Nasal cannula FiO2 % 36.0 Blood Gas Critical Value Read Back Yes Blood Gas Notified Whom Gerson banda dnp Blood Gas Notified Time [id number] Blood Gas Notified By Kirsten law rt Prothrombin Time 14.5 sec (9.3-11.8) Prothrombin Time INR 1.40 (0.9-1.15) Activated Partial Thromboplast Time 28.0 SEC (24.5-34.5) Hemoglobin A1c 6.2 % A1C (<5.7) Influenza Type A Antigen Negative (Negative) Influenza Type B Antigen Negative (Negative) SARS-CoV-2 Antigen (Rapid) Negative (NEGATIVE) Blood Gas EPAP 5 Blood Gas IPAP 12 Test 02/02/24 16:20 02/02/24 16:00 02/02/24 13:38 Lactic Acid Level 2.2 mmol/L (0.4-2.0) Troponin I High Sensitivity 39 ng/L (</=34) Urine Amorphous Crystals Few /hpf (None Seen) B-Type Natriuretic Peptide 1080.30 pg/mL (0-100) Other Laboratory Tests 02/16/24 04:49 02/15/24 06:10 Brief Hx & Hospital Course: Final diagnoses: МАРИЯ due to vasomotor nephropathy Intractable N/V/D UTI Sepsis due to UTI h/o DVT LLE Hypothyroidism DM2 Dyslipidemia Thrombocytopenia two sepsis 78-year-old female who was admitted for intractable nausea and vomiting diarrhea and UTI and acute kidney injury and dehydration She was given IV fluids and she was on vasopressors initially She was given IV antibiotics with Rocephin She wanted to be DNR The vasopressors were eventually discontinued and she improved with hydration She had thrombocytopenia due to sepsis She had МАРИЯ due to vasomotor nephropathy which improved with hydration Kidney function improved gradually She has started physical therapy and she ambulated well She finished the treatment with IV antibiotics For the last 2 days she developed more edema in her legs therefore she was restarted on the Lasix The edema is better now She is on room air Patient can be discharged home today She should resume Lasix 40 mg daily Resume the Eliquis 2.5 mg twice a day and the rest of the home medications Stopped the lisinopril due to hypotension Follow up with the primary care physician as soon as possible Condition at Discharge: Stable Final Diagnosis/Problems List МАРИЯ Intractable N/V/D UTI h/o DVT LLE Hypothyroidism DM2 Dyslipidemia Thrombocytopenia Discharge Disposition: Home with Health Services SNF Discharge Will this Physician continue t: No Discharge Instruct/Medications Diet: Cardiac 2g Na,low cholest Activity: No Restrictions, As Tolerated Follow Up/Referral: PCP RADHA Medications: Lasix 40 mg qd Resume home meds Discharge Statement: "Patient was advised to return to the ER or call 911 if any headaches, dizziness, shortness of breath, chest pain, abdominal pain, bleeding, fevers, or worsening of medical condition. Patient was counseled about treatment plan, medications, possible side effects, patientverbalized understanding. All questions were answered to the best of my ability. This discharge took greater then 30 minutes in planning, reviewing documentation, counseling the patient, and discussing with other team members." ASSESSMENT ASSESSMENT Assessment МАРИЯ Intractable N/V/D UTI h/o DVT LLE Hypothyroidism DM2 Dyslipidemia Thrombocytopenia Date of Service: Feb 16, 2024 Billing Provider: XAVIER AIKEN MD Common Visit Codes: NOT BILLABLE XAVIER AIKEN MD Feb 16, 2024 14:21
--- NOTE | 2024-02-16 22:51 | DVHPN2 ---
Progress Note - Dictate Date Seen: Feb 16, 2024 Medical Necessity Reason Pt with a Central, PICC or Fol: No Subjective Patient seen and examined at bedside. Breathing on room air Overnight events reviewed. vital signs Vital Sign Date Time Temp Pulse Resp B/P (MAP) Pulse Ox O2 Delivery O2 Flow Rate FiO2 02/16/24 21:00 98.0 90 18 112/54 (73) 93 98.0 02/16/24 20:00 Nasal Cannula* 2 28 Total Intake and Output 02/15/24 02/15/24 02/16/24 15:00 23:00 07:00 Intake Total 200 ml 75 ml 300 ml Balance 200 ml 75 ml 300 ml objective Gen.: Patient lying in bed in no apparent distress. On room air. Head: Normocephalic, atraumatic. Eyes: EOMI/PERRLA. Ears: Normal hearing. Normal anatomy. Neck/trachea: Trachea midline, supple. Nose: Normal external anatomy. Mouth: Moist mucous membranes. Chest: Decreased air entry bilaterally. No wheezing or rhonchi. Cardiovascular: Positive S1, positive S2. Regular rate and rhythm. Abdomen: Positive bowel sounds in all 4 quadrants. Soft, non-tender, non- distended. : Deferred. Rectal: Deferred. Skin: Warm, dry. Intact. Extremities: 2+ radial pulses bilaterally. No lower extremity edema. Neuro: Awake, alert, oriented x3. No gross motor or sensory deficits. Cranial nerves II through XII intact. Gait not assessed. laboratory and microbiology Laboratory Tests 02/16/24 04:49 02/15/24 06:10 Test 02/16/24 04:49 Range/Units Serum Glucose 106 74-106 mg/dL Assessment/Plan Impression: Acute hypoxic respiratory failure Acute Exacerbation COPD Shock, likely septic due to UTI CHF exacerbation Metabolic acidosis Acute metabolic encephalopathy Hydronephrosis Wheezing H/o DVT LLE Events: Breathing on room air No respiratory distress. Lehman catheter discontinued. Continue bronchodilators/Pulmicort Completed antibiotic course Incentive spirometry Antitussive for cough. Pain control Avoid oversedation Head of bed elevation Aspiration precautions Physical therapy. Protonix for GI prophylaxis. Patient is stable for discharge from the pulmonary standpoint. Disposition per hospitalist. Labs and imaging reviewed. Rest of plan as noted below. Plan: Supplemental oxygen PRN Titrate to keep O2 sats above 92%. Pressors as necessary for hemodynamic support - currently off Titrate to keep mean arterial pressure greater than 65 mmHg. Continue bronchodilators. Completed antibiotics Incentive spirometry HOB elevation Aspiration precautions Monitor renal function. Monitor electrolytes. Supplement as necessary. Monitor ins and outs. GI prophylaxis -Protonix DVT prophylaxis. Prognosis: Poor given patient's multiple co-morbidities. Rest of plan per hospitalist and other consultants. Thank you Dr. Isabel Dey MD, for allowing me to participate in this patient's care. Further recommendations will depend on the patient's clinical course. Please do not hesitate to contact me if you have any questions or concerns. This medical document was created using an electronic medical record system with [employer] dictation system. Although these documentations are being carefully reviewed, there may still be some phonetic and typographical changes. The errors are purely typographical, due to imperfection on the software program, and do not reflect any compromise in the patient's medical care. Dietary Evaluation Review Comments: 1. Continue current diet regime 2. [place] pt's food preferences 3. Consider add nepro bid (840kcal, 38g pro) for increase PO intake Expected Outcomes/Goals: 1. Pt will consume >75% of estimated needs within 3-5 days Plan discussed with: Patient, Other (MAYCOL Kilpatrick) IRIS LOREDO MD Feb 16, 2024 22:51
== END 2024-02-16 20:45 | disposition home health service (06) | DRG 871 ==
LOC: EDBD 11:50 → ER 11:50 → OVERFLOW 19:05 → DOU IN ICU 02-05 15:51 → ICU CENTRL 02-06 02:33 → TELE-CENTR 02-07 08:40
PROVIDERS: ADMIT Hospitalist; ATTEND Internal Medicine Geriatric Medicine
PROC: 05H533Z Insertion of Infusion Device into Right Subclavian Vein, Percutaneous Approach (ICD-10-PCS; principal; 2024-02-02)
DX: A41.9 Sepsis, unspecified organism (principal); G93.41 Metabolic encephalopathy; J96.01 Acute respiratory failure with hypoxia; R65.21 Severe sepsis with septic shock; I50.33 Acute on chronic diastolic (congestive) heart failure; I21.A1 Myocardial infarction type 2; N17.0 Acute kidney failure with tubular necrosis; E87.20 Acidosis, unspecified; I13.0 Hypertensive heart and chronic kidney disease with heart failure and stage 1 through stage 4 chronic kidney disease, or unspecified chronic kidney disease; J44.1 Chronic obstructive pulmonary disease with (acute) exacerbation; N13.6 Pyonephrosis; E87.1 Hypo-osmolality and hyponatremia; E03.9 Hypothyroidism, unspecified; Z66 Do not resuscitate; Z20.822 Contact with and (suspected) exposure to COVID-19; E11.22 Type 2 diabetes mellitus with diabetic chronic kidney disease; E78.5 Hyperlipidemia, unspecified; E83.42 Hypomagnesemia; E86.9 Volume depletion, unspecified; I25.10 Atherosclerotic heart disease of native coronary artery without angina pectoris; N28.1 Cyst of kidney, acquired; N18.31 Chronic kidney disease, stage 3a; E87.6 Hypokalemia; E86.0 Dehydration; E66.01 Morbid (severe) obesity due to excess calories; D69.59 Other secondary thrombocytopenia; Z79.01 Long term (current) use of anticoagulants; Z68.32 Body mass index [BMI] 32.0-32.9, adult; Z79.899 Other long term (current) drug therapy; Z90.49 Acquired absence of other specified parts of digestive tract; Z86.718 Personal history of other venous thrombosis and embolism; W18.39XA Other fall on same level, initial encounter; Y93.89 Activity, other specified; Y92.89 Other specified places as the place of occurrence of the external cause; Y99.8 Other external cause status
CPT/HCPCS: 36415; 36600; 70450; 71045; 71250; 72125; 74176; 76775; 80048; 80053; 80061; 81001; 82306; 82570; 82805; 82962; 83036; 83605; 83735; 83880; 83970; 84100; 84132; 84156; 84300; 84443; 84484; 85007; 85025; 85027; 85610; 85730; 87040; 87081; 87086; 87088; 87186; 87426; 87804; 92610; 93005; 93306; 93886; 93970; 94640; 94660; 94667; 94668; 97110; 97116; 97163; 97530; 99291; G0378; J1815; J2405; J2470; J3480; J3490; J7042